=== PATIENT | female | born 1945 | race Caucasian/White ===

== ENCOUNTER 2020-08-07 08:20 | Emergency (ER) | payer MEDICARE, SELFPAY ==
[2020-08-07 08:42] VITALS: BP 168/122; PULSE 91; RESP 16; TEMP 36.6; O2SAT 97; BMI 35.6
--- NOTE | 2020-08-07 08:45 | ED_ITS ---
HPI - General Adult General Chief complaint: General Medical Stated complaint: rectal bleed Time Seen by Provider: 08/07/20 08:26 Source: patient and family Mode of arrival: ambulatory Limitations: no limitations History of Present Illness HPI narrative: 75-year-old female with a past medical history of dementia, AFib on Coumadin, CHF, hyperlipidemia, hypertension, gout, insulin-dependent diabetes here with dark stools. Per family the patient has had some intermittent brown diarrhea for the last week or 2 (alternating days -some days normal stool, other days has 1-2 episodes of diarrhea). Today when the woke up he noticed his was incontinent of stool in the bed. He noted that her stool appeared black and he became concerned and brought her into the emergency department. No additional episodes of dark stools. No bloody stools. No complaints of abdominal pain, vomiting or fevers or chills. The patient has a history of upper GI bleed and last had an endoscopy in 2015 when she was admitted for a GI bleed. She was seen by Dr. Blas and was thought to be secondary to portal hypertensive gastropathy. the patient is a limited historian due to her dementia. Per the p atient did receive 1 dose of Pepto-Bismol yesterday. Onset (ago): hour(s) Relieving factors: none Exacerbating factors: none Associated symptoms: denies other symptoms Treatments prior to arrival: none Related Data Previous Rx's Medication Instructions Recorded levofloxacin 250 mg PO DAILY 3 Days #3 tab 08/07/20 Allergies Allergy/AdvReac Type Severity Reaction Status Date / Time Penicillins Allergy Mild UNKNOWN Unverified 06/15/20 16:47 erythromycin base Allergy Unknown UNKNOWN Unverified 06/15/20 16:47 [ERYTHROMYCIN BASE] flecainide [FLECAINIDE] Allergy Unknown UNKNOWN Unverified 06/15/20 16:47 Review of Systems Review of Systems: Yes all other systems are reviewed and are negative Constitutional: Constitutional: Reports no additional constitutional complaints, Denies body ache(s), Denies chills, Denies fever(s), Denies headache(s) and Denies weakness Eyes: Eyes: Reports no additional eye complaints and Denies change in vision ENT: Reports system reviewed and no additional complaints, except as docu mented, Denies dizziness, Denies headache(s), Denies nasal congestion, Denies nasal discharge and Denies neck pain Cardiovascular: Cardiovascular: Reports no additional cardiovascular complaints, Denies chest pain, Denies leg edema and Denies dyspnea Respiratory: Respiratory: Reports no additional respiratory complaints, Denies cough and Denies dyspnea Gastrointestinal: Gastrointestinal: Reports no additional gastrointestinal complaints, Denies abdominal pain, Reports melena, Reports diarrhea, Denies nausea and Denies vomiting Genitourinary: Genitourinary: Reports no additional female genitourinary complaints and Denies urinary incontinence Musculoskeletal: Musculoskeletal: Reports no additional musculoskeletal compl aints, Denies back pain, Denies arthralgias, Denies joint swelling, Denies neck pain, Denies numbness and Denies tingling Integumentary/Breasts: Skin/Breast: Reports system reviewed and no additional complaints, except as docu and Denies rash Neurologic: Reports system reviewed and no additional complaints, except as documented, Denies Abnormal speech present, Reports confusion, Denies dizziness, Denies headache(s), Denies numbness, Denies tingling and Denies weakness Psychiatric: Psychiatric: Reports confusion [facility] Past Medical History Attestation statement: The following information was validated with the patient. Source: obtained from family and nursing notes reviewed Medical History (Updated 08/07/20 @ 14:48 by Heather Gould NP) Atrial fibrillation Dementia Diabetes GI bleed Gout High cholesterol Hypertension Social History Social History Alcohol intake: never Smoking Status: Never smoker Use of substances other than those prescribed or required for medical reasons: No Advance Directives: No Advance Directives Information Provided: No Physical Exam Vital Signs: Vital Signs: Last Vital Signs Temp 97.9 F 08/07/20 08:42 Pulse 71 08/07/20 14:39 Resp 16 08/07/20 14:39 BP 143/63 H 08/07/20 14:39 Pulse Ox 100 08/07/20 14:39 Body Mass Index 35.6 Const: General: cooperative, healthy appearing, comfortable, no acute distress and confusion Orientation/consciousness: oriented to person and confusion Limitations: no limitations HENMT: Head: Yes normal to inspection Ears: hearing grossly normal bilaterally General nose exam: Normal external nose present Face and sinus: Yes normal facial exam Mouth: Normal oral and palatal mucosa present Throat: Yes posterior oropharynx normal Eyes: General: appearance normal, both eyes and all related structures Pupils: Equal, round and reactive pupils present Neck: Neck: Yes normal visual inspection Chest: Chest palpation & inspection: normal inspection of the chest Resp: Effort & Inspection: normal respiratory effort Auscultation: clear to auscultation bilaterally Cardio: Rate: regular rate Rhythm: regular rhythm Peripheral pulses: Peripheral pulses 2+ throughout GI: Other: Dark liquid stool noted on rectal exam and around rectum. Heme negative Inspection: Yes normal to inspection Palpation (GI): Soft to palpation and nontender Auscultation: normal bowel sounds Rectal Exam - Female: visual inspection normal and normal sphincter tone Back/Spine/Pelvis: Thoracic/Lumbar Spine: thoracic and lumbar spine normal to inspection Skin: General skin exam: no rashes or lesions noted Neuro: General: oriented to person, no focal motor deficits, normal sensation to monofilament and confusion Cranial nerves: Yes Equal, round and reactive pupils present Cognition (Neuro): normal cognition Speech: No Abnormal speech present Gait exam (Neuro): Normal gait present Motor exam (neuro): 5/5 motor strength present throughout Extrem: General: Yes normal to inspection Course Course Course Narrative: 75-year-old female here with intermittent diarrhea for the last 1-2 weeks and now with 1 single episode of dark stools noted this morning. The patient has no other complaints. Her abdomen is soft and nontender. Her rectal exam shows dark stool. It is heme-negative in the ED. Will send study for occult blood. check labs including PT / INR. 1130-Nursing told me the patient was found on her knees in her room saying she fell getting out of bed. She denies hitting her head. She is confused secondary to dementia at baseline. Neuro exam intact. Will check CT head. 1350-Repeat occult Stool negative. Repeat BNP improved. Blood pressure on discharge improved. UA is consistent with UTI so will give short course of antibiotics. No systemic signs or symptoms of infection. The patient had no additional stools while she was here in the emergency department for 6 hours. Dark stool likely secondary to Pepto-Bismol. Discussed findings with the patient and the patient's family. Reviewed follow-up care. Reviewed worrisome signs and symptoms and when to return to the emergency department. Comfortable discharge home. Medical Decision Making MDM Narrative Medical decision making narrative: GI bleed, pepto use, viral syndrome, infectious diarrhea, ischemic colitis vs diverticulitis. Likely GI bleed with heme-negative stools, stable hgb. less likely infectious diarrhea with no continued episodes here. Less likely ischemic colitis with negative lactic acid and no abdominal pain. Less of the diverticulitis with no abdominal pain Medical Records Medical records reviewed: Yes I reviewed the patient's medical records. Lab Data Lab results reviewed: Yes I reviewed the patient's lab results. Result diagrams: 08/07/20 08:59 08/07/20 13:01 Labs: Lab Results 08/07/20 08/07/20 08/07/20 Range/Units 08:58 08:59 08:59 WBC 5.5 (4.8-10.8) X10*3/uL RBC 3.72 L (4.20-5.50) X10*6/uL Hgb 11.2 L (12.0-16.0) g/dl Hct 34.8 L (37-47) % MCV 93.5 (80-98) fL MCH 30.1 (27.0-33.0) pg MCHC 32.2 (31.0-35.0) g/dl RDW 13.6 (11.0-16.0) % Plt Count 153 L (160-400) X10*3/uL MPV 11.2 (9.4-12.3) fL Immature Gran % (Auto) 0.4 (0.0-0.4) % Neut % (Auto) 75.0 H (45-73) % Lymph % (Auto) 13.2 L (20-40) % [place]ee % (Auto) 9.2 (2-11) % Eos % (Auto) 1.8 (0-4) % Baso % (Auto) 0.4 (0-2) % Lymph # (Auto) 0.7 L (1.2-4.9) X10*3/uL [place] # (Auto) 0.5 (0.1-1.2) X10*3/uL Eos # (Auto) 0.1 (0.0-0.4) X10*3/uL Baso # (Auto) 0.0 (0.0-0.2) X10*3/uL Abs Immat Gran (auto) 0.02 (0.00-0.03) X10*3/uL Absolute Neuts (auto) 4.1 (2.0-8.3) X10*3/uL Absolute Nucleated RBC 0.000 (0.0-0.012) X10*3/uL Nucleated RBC % (auto) 0.0 (0.0-0.2) /100WBC PT (10.8-13.0) SEC INR (0.9-1.1) Sodium 139 (135-145) mmol/L Potassium 4.1 (3.3-5.1) mmol/l Chloride 106 (96-108) mmol/L Carbon Dioxide 26 (22-29) mmol/L Anion Gap 11 L (12-20) BUN 52 H (9-16) mg/dL Creatinine 0.81 (0.5-1.4) mg/dL Estim Creat Clear Calc 63.9 Estimated GFR > 60 Random Glucose 75 (60-115) mg/dL Lactic Acid (0.5-2.0) mmol/L Calcium 9.5 (8.4-10.2) mg/dL Magnesium (1.6-2.6) mg/dL Total Bilirubin (0.0-1.0) mg/dL Direct Bilirubin (0.0-0.5) mg/dL AST (5-31) U/L ALT (0-31) U/L Alkaline Phosphatase (39-117) U/L Total Protein (6.5-8.0) g/dL Albumin (3.5-5.0) g/dL Urine Color Urine Appearance Urine pH (5.0-8.0) Ur Specific [place] (1.005-1.025) Urine Protein (NEG-TRACE) MG/DL Urine Glucose (UA) (NEG) MG/DL Urine Ketones (NEG) MG/DL Urine Blood (NEG) Urine Nitrite (NEG) Ur Leukocyte Esterase (NEG) Urine RBC (0) /HPF Urine WBC (0-4) /HPF Ur Squamous Epith Cells /LPF Urine Bacteria /LPF Stool Occult Blood NEG (NEG) Blood Type Antibody Screen 08/07/20 08/07/20 08/07/20 Range/Units 08:59 08:59 08:59 WBC (4.8-10.8) X10*3/uL RBC (4.20-5.50) X10*6/uL Hgb (12.0-16.0) g/dl Hct (37-47) % MCV (80-98) fL MCH (27.0-33.0) pg MCHC (31.0-35.0) g/dl RDW (11.0-16.0) % Plt Count (160-400) X10*3/uL MPV (9.4-12.3) fL Immature Gran % (Auto) (0.0-0.4) % Neut % (Auto) (45-73) % Lymph % (Auto) (20-40) % [place] % (Auto) (2-11) % Eos % (Auto) (0-4) % Baso % (Auto) (0-2) % Lymph # (Auto) (1.2-4.9) X10*3/uL [place]ee # (Auto) (0.1-1.2) X10*3/uL Eos # (Auto) (0.0-0.4) X10*3/uL Baso # (Auto) (0.0-0.2) X10*3/uL Abs Immat Gran (auto) (0.00-0.03) X10*3/uL Absolute Neuts (auto) (2.0-8.3) X10*3/uL Absolute Nucleated RBC (0.0-0.012) X10*3/uL Nucleated RBC % (auto) (0.0-0.2) /100WBC PT 26.0 H (10.8-13.0) SEC INR 2.2 H (0.9-1.1) Sodium (135-145) mmol/L Potassium (3.3-5.1) mmol/l Chloride (96-108) mmol/L Carbon Dioxide (22-29) mmol/L Anion Gap (12-20) BUN (9-16) mg/dL Creatinine (0.5-1.4) mg/dL Estim Creat Clear Calc Estimated GFR Random Glucose (60-115) mg/dL Lactic Acid 1.4 (0.5-2.0) mmol/L Calcium (8.4-10.2) mg/dL Magnesium 2.4 (1.6-2.6) mg/dL Total Bilirubin 0.4 (0.0-1.0) mg/dL Direct Bilirubin < 0.2 (0.0-0.5) mg/dL AST 33 H (5-31) U/L ALT 28 (0-31) U/L Alkaline Phosphatase 78 (39-117) U/L Total Protein 6.2 L (6.5-8.0) g/dL Albumin 3.8 (3.5-5.0) g/dL Urine Color Urine Appearance Urine pH (5.0-8.0) Ur Specific [place] (1.005-1.025) Urine Protein (NEG-TRACE) MG/DL Urine Glucose (UA) (NEG) MG/DL Urine Ketones (NEG) MG/DL Urine Blood (NEG) Urine Nitrite (NEG) Ur Leukocyte Esterase (NEG) Urine RBC (0) /HPF Urine WBC (0-4) /HPF Ur Squamous Epith Cells /LPF Urine Bacteria /LPF Stool Occult Blood (NEG) Blood Type Antibody Screen 08/07/20 08/07/20 08/07/20 Range/Units 09:07 13:01 14:18 WBC (4.8-10.8) X10*3/uL RBC (4.20-5.50) X10*6/uL Hgb (12.0-16.0) g/dl Hct (37-47) % MCV (80-98) fL MCH (27.0-33.0) pg MCHC (31.0-35.0) g/dl RDW (11.0-16.0) % Plt Count (160-400) X10*3/uL MPV (9.4-12.3) fL Immature Gran % (Auto) (0.0-0.4) % Neut % (Auto) (45-73) % Lymph % (Auto) (20-40) % [place] % (Auto) (2-11) % Eos % (Auto) (0-4) % Baso % (Auto) (0-2) % Lymph # (Auto) (1.2-4.9) X10*3/uL [place] # (Auto) (0.1-1.2) X10*3/uL Eos # (Auto) (0.0-0.4) X10*3/uL Baso # (Auto) (0.0-0.2) X10*3/uL Abs Immat Gran (auto) (0.00-0.03) X10*3/uL Absolute Neuts (auto) (2.0-8.3) X10*3/uL Absolute Nucleated RBC (0.0-0.012) X10*3/uL Nucleated RBC % (auto) (0.0-0.2) /100WBC PT (10.8-13.0) SEC INR (0.9-1.1) Sodium 141 (135-145) mmol/L Potassium 4.3 (3.3-5.1) mmol/l Chloride 109 H (96-108) mmol/L Carbon Dioxide 24 (22-29) mmol/L Anion Gap 12 (12-20) BUN 46 H (9-16) mg/dL Creatinine 0.72 (0.5-1.4) mg/dL Estim Creat Clear Calc 71.9 Estimated GFR > 60 Random Glucose 82 (60-115) mg/dL Lactic Acid (0.5-2.0) mmol/L Calcium 9.0 (8.4-10.2) mg/dL Magnesium (1.6-2.6) mg/dL Total Bilirubin (0.0-1.0) mg/dL Direct Bilirubin (0.0-0.5) mg/dL AST (5-31) U/L ALT (0-31) U/L Alkaline Phosphatase (39-117) U/L Total Protein (6.5-8.0) g/dL Albumin (3.5-5.0) g/dL Urine Color YELLOW Urine Appearance CLEAR Urine pH 6.0 (5.0-8.0) Ur Specific [place] <= 1.005 (1.005-1.025) Urine Protein NEG (NEG-TRACE) MG/DL Urine Glucose (UA) NEG (NEG) MG/DL Urine Ketones NEG (NEG) MG/DL Urine Blood NEG (NEG) Urine Nitrite NEG (NEG) Ur Leukocyte Esterase 2+ H (NEG) Urine RBC 0 (0) /HPF Urine WBC 5-9 H (0-4) /HPF Ur Squamous Epith Cells 1+ /LPF Urine Bacteria TRACE /LPF Stool Occult Blood (NEG) Blood Type O Positive Antibody Screen NEGATIVE Imaging Data CT scan - head: Attestation: I personally reviewed and interpreted this imaging study as follows: Radiologist's impression: EXAMINATION: CT HEAD WITHOUT CONTRAST CLINICAL INFORMATION: Fall. Trauma. COMPARISON: None TECHNIQUE: Contiguous axial imaging was performed from the skull base to vertex without intravenous administration of contrast. This CT examination was performed using dose optimization techniques as appropriate, variously including the following: *Automated exposure control *Adjustment of mA and/or kV according to patient size (this includes techniques or standardized protocols for targeted exams where dose is matched to indication/reason for exam; i.e. extremities or head) *Use of iterative reconstruction technique DLP: 695 mGy-cm FINDINGS: There is no evidence of an extra-axial collection. There is no evidence of intra-axial or extra-axial hemorrhage. The ventricles gallstones and CSF spaces are prominent suggestive of generalized atrophy. 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 There is ex vacuo dilatation of the posterior horn of the left lateral ventricle. There is nonspecific periventricular white matter disease. No acute infarct, mass or mass effect is seen. Review at bone windows is unremarkable. CT/CT head/brain wo con IMPRESSION: No acute findings. 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 Atrophy and nonspecific periventricular white matter disease. ECG Data Attestation: I personally reviewed and interpreted this ECG as follows: Interpretation: AFib with occasional PVCs. Normal QRS, normal QTunchanged from previous Discharge Plan Discharge Clinical Impression: Acute UTI, Diarrhea Patient Disposition: Home, Self-Care Instructions: Acute Diarrhea (ED), Urinary Tract Infection in Older Adults (ED) Additional Instructions: There was no evidence of blood in her stools today. Her blood counts were nor mal. Sometimes Pepto-Bismol can cause stools to appear dark. Discontinue use of this. Monitor her stools closely over the next several days. She does have a urinary tract infection. Start antibiotics today. Increase fluids. Follow-up with her primary care doctor Prescriptions: New levofloxacin 250 mg tablet 250 mg PO DAILY 3 Days Qty: 3 RF: 0 Referrals: Jia Cohen MD [Primary Care Provider] - 2 days Interventions: ED Discharge Assessment Last Done: 08/07/20 15:11 Discharge Date/Time: 08/07/20 15:11
--- NOTE | 2020-08-07 09:07 | ECG_ITS ---
Test Reason : WEAKNESS Blood Pressure : / mmHG Vent. Rate : 073 BPM Atrial Rate : 065 BPM P-R Int : 000 ms QRS Dur : 088 ms QT Int : 388 ms P-R-T Axes : 000 013 003 degrees QTc Int : 427 ms Atrial fibrillation with premature ventricular or aberrantly conducted complexes Nonspecific ST abnormality Inferior leads Abnormal ECG When compared with ECG of 22-JAN-2016 17:58, Nonspecific ST abnormality Inferior leads is new Referred By: Heather Gould Electronically Signed By:SHOAIB TEJADA MD
[2020-08-07 09:10] LABS: OBS Int Ctl Valid YES; OBS1 NEG (NEG)
[2020-08-07 09:10] LABS: MANUAL DIFF FLAG NO
[2020-08-07 09:13] LABS: Basophils Percent Auto 0.4 % (0-2); Eosinophils Absolute Auto 0.1 X10*3/uL (0.0-0.4); Eosinophils Percent Auto 1.8 % (0-4); Hematocrit 34.8 % (37-47); Hemoglobin 11.2 g/dl (12.0-16.0); Imm Gran Abs Auto 0.02 X10*3/uL (0.00-0.03); Imm Gran Pct Auto 0.4 % (0.0-0.4); Lymphocytes Absolute Auto 0.7 X10*3/uL (1.2-4.9); Lymphocytes Percent Auto 13.2 % (20-40); Mean Corpuscular HGB Conc 32.2 g/dl (31.0-35.0); Mean Corpuscular Hemoglobin 30.1 pg (27.0-33.0); Mean Corpuscular Volume 93.5 fL (80-98); Mean Platelet Volume 11.2 fL (9.4-12.3); Monocytes Absolute Auto 0.5 X10*3/uL (0.1-1.2); Monocytes Percent Auto 9.2 % (2-11); Neutrophils Absolute Auto 4.1 X10*3/uL (2.0-8.3); Platelet Count 153 X10*3/uL (160-400); Red Blood Count 3.72 X10*6/uL (4.20-5.50); Red Cell Distribution Width 13.6 % (11.0-16.0); White Blood Count 5.5 X10*3/uL (4.8-10.8)
[2020-08-07 09:15] LABS: INTERNATIONAL NORM RATIO 2.2 (0.9-1.1)
[2020-08-07 09:36] LABS: Lactic Acid 1.4 mmol/L (0.5-2.0)
[2020-08-07 09:38] LABS: Alanine Aminotransferase 28 U/L (0-31); Albumin Level 3.8 g/dL (3.5-5.0); Alkaline Phosphatase 78 U/L (39-117); Aspartate Amino Transferase 33 U/L (5-31); Bilirubin Direct < 0.2 mg/dL (0.0-0.5); Bilirubin Total 0.4 mg/dL (0.0-1.0); Magnesium 2.4 mg/dL (1.6-2.6); Total Protein 6.2 g/dL (6.5-8.0)
[2020-08-07 09:39] LABS: Anion Gap 11 (12-20); Blood Urea Nitrogen 52 mg/dL (9-16); Calcium 9.5 mg/dL (8.4-10.2); Carbon Dioxide 26 mmol/L (22-29); Chloride 106 mmol/L (96-108); Creatinine Clr Calc Pharmacy 63.9; Estimated Glomerular Filt Rate > 60; Glucose Random 75 mg/dL (60-115); Potassium 4.1 mmol/l (3.3-5.1); Sodium 139 mmol/L (135-145)
[2020-08-07] MEDS: 0.9 % Sodium Chloride 1,000 ML 999 ML IV (09:52)
[2020-08-07 10:00] VITALS: RESP 16
--- NOTE | 2020-08-07 11:40 | CT_ITS ---
EXAMINATION: CT HEAD WITHOUT CONTRAST CLINICAL INFORMATION: Fall. Trauma. COMPARISON: None TECHNIQUE: Contiguous axial imaging was performed from the skull base to vertex without intravenous administration of contrast. This CT examination was performed using dose optimization techniques as appropriate, variously including the following: *Automated exposure control *Adjustment of mA and/or kV according to patient size (this includes techniques or standardized protocols for targeted exams where dose is matched to indication/reason for exam; i.e. extremities or head) *Use of iterative reconstruction technique DLP: 695 mGy-cm FINDINGS: There is no evidence of an extra-axial collection. There is no evidence of intra-axial or extra-axial hemorrhage. The ventricles gallstones and CSF spaces are prominent suggestive of generalized atrophy. 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 There is ex vacuo dilatation of the posterior horn of the left lateral ventricle. There is nonspecific periventricular white matter disease. No acute infarct, mass or mass effect is seen. Review at bone windows is unremarkable. CT/CT head/brain wo con IMPRESSION: No acute findings. 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 Atrophy and nonspecific periventricular white matter disease.
[2020-08-07 12:00] VITALS: PULSE 65; RESP 16; O2SAT 98
--- NOTE | 2020-08-07 12:14 | PC.NURSE ---
Pt out of room to ct scan.
[2020-08-07 13:44] LABS: Anion Gap 12 (12-20); Blood Urea Nitrogen 46 mg/dL (9-16); Carbon Dioxide 24 mmol/L (22-29); Chloride 109 mmol/L (96-108); Creatinine Clr Calc Pharmacy 71.9; Estimated Glomerular Filt Rate > 60; Glucose Random 82 mg/dL (60-115); Potassium 4.3 mmol/l (3.3-5.1); Sodium 141 mmol/L (135-145)
[2020-08-07 14:26] LABS: Appearance Urine CLEAR; Color Urine YELLOW; Glucose Urine UA NEG (NEG); Leukocyte Esterase Urine 2+ (NEG); Nitrite Urine NEG (NEG); Specific Gravity - Urine <= 1.005 (1.005-1.025); Urine Blood NEG (NEG); Urine Ketones NEG (NEG); Urine Protein NEG (NEG-TRACE)
[2020-08-07 14:33] LABS: Bacteria Urine TRACE /LPF; RBC Urine 0 /HPF (0); Squamous Epithelial Cell Urine 1+ /LPF
[2020-08-07 14:39] VITALS: BP 143/63; PULSE 71; RESP 16; O2SAT 100
== END 2020-08-07 15:11 | disposition home or self-care (01) ==
PROVIDERS: Nurse Practitioner Family; Emergency Provider Emergency Medicine; PCP Internal Medicine
DX: N39.0 Urinary tract infection, site not specified (principal); R19.7 Diarrhea, unspecified; G44.309 Post-traumatic headache, unspecified, not intractable; I48.91 Unspecified atrial fibrillation; E11.9 Type 2 diabetes mellitus without complications; Z79.01 Long term (current) use of anticoagulants; Z79.899 Other long term (current) drug therapy; Z79.4 Long term (current) use of insulin
CPT/HCPCS: 36415; 70450; 80048; 80076; 81001; 82272; 83605; 83735; 85025; 85610; 86850; 86900; 86901; 87086; 93005; 96360; 99284

== ENCOUNTER 2020-12-10 12:24 | Inpatient (IN) | payer MEDICARE, SELFPAY ==
--- NOTE | ~2020-12-10 | XR_ITS ---
EXAMINATION: LUMBAR SPINE. SACRUM AND/OR COCCYX. CLINICAL INFORMATION: Status post fall. COMPARISON: None TECHNIQUE: 3 views lumbar spine. Sacrum and/or coccyx 2 views. FINDINGS: LUMBAR SPINE: There is normal lumbar lordosis. The vertebral heights is normal. There is grade 1 anterolisthesis L4 over L5. There is loss of L3-L4, L4-L5, L5-S1 disc heights. No visible acute fracture, dislocation or lytic process seen. The paravertebral soft tissues are normal. The SI joints are normal and symmetrical. There are atherosclerotic changes of abdominal aorta. SACRUM/COCCYX: There is normal symmetry of the SI joints. There is a mild step-off seen along the anterior distal sacrum suspicious for a fracture. XR/XR lumbar spine 1V IMPRESSION: Grade 1 anterolisthesis L4 over L5. There are degenerative disc changes L3-L4 through L5-S1 disc levels. No acute fracture or dislocation in lumbar spine. Suspect fracture along the anterior distal sacral margin. If patient has pain in this region consider CT.
--- NOTE | ~2020-12-10 | CT_ITS ---
EXAMINATION: CT SACRUM. CLINICAL INFORMATION: Status post fall. COMPARISON: Sacral x-ray TECHNIQUE: Axial 3 mm thin and reformatted 2 mm thin sagittal and coronal images of cervical spine were obtained without contrast. DLP 509. FINDINGS: On sagittal reconstructed images there transverse S5 fracture with 3 midline anterior displacement of the anterior margin. There is minimal presacral fat stranding and post right sacral soft tissue edema. No additional areas of fracture seen. The SI joints are symmetrical and normal. There are degenerative disc changes with vacuum disc phenomena L4-L5 and L5-S1 disc level. CT/CT sacrum IMPRESSION: Minimally displaced S5 fracture with adjacent posterior sacral soft tissue swelling. Incidental finding of is significantly distended urinary bladder.
--- NOTE | ~2020-12-10 | XR_ITS ---
EXAMINATION: LUMBAR SPINE. SACRUM AND/OR COCCYX. CLINICAL INFORMATION: Status post fall. COMPARISON: None TECHNIQUE: 3 views lumbar spine. Sacrum and/or coccyx 2 views. FINDINGS: LUMBAR SPINE: There is normal lumbar lordosis. The vertebral heights is normal. There is grade 1 anterolisthesis L4 over L5. There is loss of L3-L4, L4-L5, L5-S1 disc heights. No visible acute fracture, dislocation or lytic process seen. The paravertebral soft tissues are normal. The SI joints are normal and symmetrical. There are atherosclerotic changes of abdominal aorta. SACRUM/COCCYX: There is normal symmetry of the SI joints. There is a mild step-off seen along the anterior distal sacrum suspicious for a fracture. XR/XR sacrum coccyx min 2V IMPRESSION: Grade 1 anterolisthesis L4 over L5. There are degenerative disc changes L3-L4 through L5-S1 disc levels. No acute fracture or dislocation in lumbar spine. Suspect fracture along the anterior distal sacral margin. If patient has pain in this region consider CT.
--- NOTE | ~2020-12-10 | CT_ITS ---
EXAMINATION: CT ABDOMEN AND PELVIS WITH CONTRAST CLINICAL INFORMATION: Severe abdominal tenderness. COMPARISON: Ultrasound of abdomen 01/24/2016 TECHNIQUE: Multidetector volumetric images were obtained from the superior aspect of the liver through the pubic symphysis following administration 85 mL of Omnipaque 350 intravenous contrast. Immediate postcontrast images were obtained through the abdomen and pelvis. 5 minute delayed images were obtained through the kidneys Sagittal and coronal reformatted images were obtained on the technologist's workstation. Oral contrast: No This CT examination was performed using dose optimization techniques as appropriate, variously including the following: *Automated exposure control *Adjustment of mA and/or kV according to patient size (this includes techniques or standardized protocols for targeted exams where dose is matched to indication/reason for exam; i.e. extremities or head) *Use of iterative reconstruction technique DLP: 1114 mGy-cm FINDINGS: LUNG BASES: The visualized lung bases are unremarkable. LIVER, GALLBLADDER, AND BILIARY TREE: The liver is normal in size, shape, and attenuation. No focal hepatic lesion or biliary ductal dilatation is present. The gallbladder is unremarkable with no evidence of radiopaque gallstones, gallbladder wall thickening, or obvious pericholecystic inflammatory changes. PANCREAS: There is atrophy of the pancreas. No inflammation. No pancreatic duct dilatation. SPLEEN: Unremarkable. ADRENAL GLANDS: Right adrenal gland is normal. There is a 2 cm nodule in the left adrenal gland. This has a density measurement of 31 Hounsfield units which is indeterminate on a postcontrast CT study. KIDNEYS AND URETERS: Kidneys of normal size and shape with normal enhancement of the cortex. Delayed images through the kidneys show normal enhancement of the calyces and renal pelvis with no filling defect or hydronephrosis. There are multiple bilateral renal cysts. Largest is a Multilobulated cyst upper pole right kidney measuring 3 cm. There is no renal or ureteral calculus. BLADDER: Cueva catheter within the bladder. The bladder is empty. GASTROINTESTINAL TRACT: There are numerous diverticula of the sigmoid colon. Scattered diverticula of the descending colon. There is no diverticulitis. There is no bowel wall thickening /edema. There is no bowel obstruction. There is a moderate volume of stool in the colon overall. There is a large collection of stool in the rectum and sigmoid. Colonic bowel loops the level the hips is distended to a diameter of 8.8 cm. There is no bowel wall thickening. No evidence of stercoral colitis. The appendix is nonvisualized . The small bowel loops are unremarkable. The stomach is normal. There is no hiatal hernia. ABDOMINAL WALL: Small fat-containing umbilical hernia. LYMPH NODES: There is no significant lymphadenopathy. VASCULAR: Vascular calcifications throughout the abdomen and pelvis. There is no aneurysm. PELVIC VISCERA: Status post hysterectomy OSSEOUS STRUCTURES: Multilevel degenerative spondylosis of the spine. CT/CT abdomen pelvis w con IMPRESSION: There is no acute abnormality the abdomen or pelvis. Large collection of stool at the rectum sigmoid without bowel obstruction or evidence of stercoral colitis. There is diverticulosis of colon without evidence of diverticulitis.
--- NOTE | ~2020-12-10 | CT_ITS ---
EXAMINATION: CT HEAD WITHOUT CONTRAST CT CERVICAL SPINE WITHOUT CONTRAST CLINICAL INFORMATION: Fall with head strike COMPARISON: CT head dated 08/07/2020 TECHNIQUE: Multidetector CT imaging of the head and cervical spine was performed without the use of intravenous contrast. Multiplanar reformats are reviewed. This CT examination was performed using dose optimization techniques as appropriate, variously including the following: *Automated exposure control *Adjustment of mA and/or kV according to patient size (this includes techniques or standardized protocols for targeted exams where dose is matched to indication/reason for exam; i.e. extremities or head) *Use of iterative reconstruction technique DLP: 1844 mGy-cm. FINDINGS: There is no evidence of acute intracranial hemorrhage or territorial infarction. No abnormal mass effect or midline shift is seen. Tsai to white matter differentiation is well preserved. No extra-axial fluid collections are identified. The ventricles are normal in size. Patchy subcortical and periventricular white matter low-attenuation changes reflective of chronic migraine hepatic lesions. 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 The osseous structures and soft tissues are normal. The mastoid air cells and visualized portions of the paranasal sinuses are well-aerated. Atlantooccipital alignment is maintained. The vertebral bodies and posterior elements align normally. No acute fracture or subluxation. Vertebral body heights are maintained. Small endplate osteophytes present throughout the cervical spine. Significant loss of disc space height present at C6-C7. Hypertrophic facet arthropathy present throughout the cervical spine, worse on the right C2-C4 on the left from C3 to C5. There is at least mild central canal stenosis at C3-C4 and C4-C5. [place] calcifications present at the bilateral carotid bifurcations. Paraspinal soft tissues unremarkable otherwise. CT/CT cervical spine wo con IMPRESSION: No acute intracranial pathology. 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 No cervical spine fracture or malalignment.
[2020-12-10 12:41] VITALS: BP 183/69; PULSE 79; RESP 18; TEMP 36.5; O2SAT 99; BMI 35.5
--- NOTE | 2020-12-10 12:50 | ECG_ITS ---
Test Reason : FALLS Blood Pressure : / mmHG Vent. Rate : 075 BPM Atrial Rate : 082 BPM P-R Int : 000 ms QRS Dur : 084 ms QT Int : 378 ms P-R-T Axes : 000 027 036 degrees QTc Int : 449 ms Atrial fibrillation Possible Anterior infarct (cited on or before 10-DEC-2020) Abnormal ECG When compared with ECG of 10-DEC-2020 13:20, Nonspecific T wave abnormality now evident in Inferior leads Referred By: Amelie Chong Electronically Signed By: DIPAK EDMOND MD [facility]
--- NOTE | 2020-12-10 12:51 | PC.NURSE ---
patient alert to self at times place, personnel monitor intact, vss, pt awaiting provider, will continue to monitor.
--- NOTE | 2020-12-10 13:08 | ED.GENADULT ---
HPI - General Adult General Chief complaint: Fall Stated complaint: 3 FALLS THIS WEEK,WEAKNESS,SLEEPY PER FAMILY Time Seen by Provider: 12/10/20 12:49 Source: patient, family and EMS Mode of arrival: EMS Limitations: no limitations History of Present Illness HPI narrative: 75 y/o female with history of atrial fibrillation on Coumadin, DM on insulin, dementia, CHF on diuretics, gout who presents to the ED from home via EMS with generalized weakness with three falls over the last 10 days. Patient is a poor historian, so family provides most of the history. He states she has had 3 unwitnessed falls when ambulating around the house. She has not been using her walker like she should be. The 1st fall occurred when walking to the TV and she fell on her side. 2nd fall was in the kitchen and she fell backwards on her buttocks and hit her head on the hard kitchen floor. She seems in a daze since then. He cannot recall the details of the 3rd fall. He states her legs just aren't working anymore. She has been complaining of low back pain and tailbone pain per . She denies headache, N/V, abdominal pain but is tender on palpation of her abdomen on arrival. Related Data Previous Rx's Medication Instructions Recorded levofloxacin 250 mg PO DAILY 3 Days #3 tab 08/07/20 Allergies Allergy/AdvReac Type Severity Reaction Status Date / Time Penicillins Allergy Mild UNKNOWN Verified 12/10/20 12:40 erythromycin base Allergy Unknown UNKNOWN Verified 12/10/20 12:40 [ERYTHROMYCIN BASE] flecainide [FLECAINIDE] Allergy Unknown UNKNOWN Verified 12/10/20 12:40 Review of Systems Review of Systems: Constitutional: No Fever, No Chills ENT/Mouth: No sore throat, No Rhinorrhea, No Swallowing Difficulty Cardiovascular: No Chest Pain, No SOB, No Orthopnea, + Edema Respiratory: No Cough, No Sputum, No Wheezing, No dyspnea Gastrointestinal: No Nausea, No Vomiting, No Diarrhea, No abdominal Pain Genitourinary: No Dysuria, No Urinary Frequency, No Hematuria Musculoskeletal: + joint pain, No Myalgias Skin: No Skin Lesions, No rash Neuro: No Weakness, No Numbness, No Dizziness, No Headache Psych: No Anxiety/Panic, No Depression Heme/Lymph: No Bruising, No Lymphadenopathy Endocrine: No Polyuria, No Polydipsia PMFSH Past Medical History Attestation statement: The following information was validated with the patient. Medical History Atrial fibrillation Dementia Diabetes GI bleed Gout High cholesterol Hypertension Social History Social History Alcohol intake: never Smoking Status: Former smoker Use of substances other than those prescribed or required for medical reasons: No Advance Directives: No Advance Directives Information Provided: No Physical Exam Vital Signs: Vital Signs: Last Vital Signs Temp 98.0 F 12/10/20 15:55 Pulse 64 12/10/20 15:55 Resp 13 12/10/20 15:55 BP 174/59 H 12/10/20 15:55 Pulse Ox 98 12/10/20 15:55 Body Mass Index 35.5 Appearance: Alert. Oriented X1. No acute distress. Eyes: Pupils equal, round and reactive to light. EOMI, no nystagmus ENT: Pharynx normal. Neck: Normal inspection. Neck supple. CVS: irregularly irregurlar, normal rate, normal S1/S2 Pulses normal. Respiratory: No respiratory distress. Breath sounds normal. Abdomen: Soft with significant suprapubic tenderness, extending up to the umbilicus. +rebound and guarding. +BS x4 Skin: Skin warm and dry. Normal skin color. Normal skin turgor. No rashes. Extremities: 3+ LE edema, pale, but warm and well perfused. Neuro: Oriented X 1. No motor deficit. No sensory deficit. Confused Course Course Course Narrative: 75 y/o female with multiple comorbidities including afib on Coumadin and dementia who is presenting with 3 unwitnessed falls at home in the last 1-2 weeks, at least 1 with head trauma. Patient offers no complaints at this time but patient's husbnad reports she has been c/o low back pain. Will get CT head/C-spine, XR lumbar spine and coccyx/sacrum as well as EKG and basic blood work. Exam consistent with bladder distention. She voided but is mill tender washing. Awaiting PVR. Anticipate admission if acute abnormality is found vs PT/CM placement for rehab. She is not safe at home. Patient and are agreeable with plan. Reevaluation(s) Reevaluation #1: Lab workup unremarkable, mild transaminitis noted. XR lumbar spine ok, sacrum/coccyx showed concern for fracture so CT ordered for further evaluation. CT head/c-spine show no acute intracranial pathology. Reevaluation #2: PVR >999 cc so Cueva catheter placed - 2.2L urine returned. UA is positive for infection. Allergy to PCN with unknown reaction, will treat with Levaquin. She feels much better after bladder decompression. Hold off on further abdominal imaging at this time. CT scan showing minimally displaced S5. Ilda LIU from [employer] texted for recs. Patient is comfortable at this time and denying pain. Contacted hospitalist Caterina Guerrier who will put patient on list for admission, unable to review chart at this time. Will sign out to Yasemin MALONE who will assume care. Medical Decision Making Lab Data Result diagrams: 12/10/20 13:29 12/10/20 13:29 Labs: Lab Results 12/10/20 12/10/20 12/10/20 Range/Units 13:15 13:29 13:29 WBC 7.3 (4.8-10.8) X10*3/uL RBC 4.12 L (4.20-5.50) X10*6/uL Hgb 12.2 (12.0-16.0) g/dl Hct 37.4 (37-47) % MCV 90.8 (80-98) fL MCH 29.6 (27.0-33.0) pg MCHC 32.6 (31.0-35.0) g/dl RDW 14.0 (11.0-16.0) % Plt Count 175 (160-400) X10*3/uL MPV 11.0 (9.4-12.3) fL Immature Gran % (Auto) 0.4 (0.0-0.4) % Neut % (Auto) 73.9 H (45-73) % Lymph % (Auto) 12.7 L (20-40) % [place] % (Auto) 10.9 (2-11) % Eos % (Auto) 1.8 (0-4) % Baso % (Auto) 0.3 (0-2) % Lymph # (Auto) 0.9 L (1.2-4.9) X10*3/uL [place] # (Auto) 0.8 (0.1-1.2) X10*3/uL Eos # (Auto) 0.1 (0.0-0.4) X10*3/uL Baso # (Auto) 0.0 (0.0-0.2) X10*3/uL Abs Immat Gran (auto) 0.03 (0.00-0.03) X10*3/uL Absolute Neuts (auto) 5.4 (2.0-8.3) X10*3/uL Absolute Nucleated RBC 0.000 (0.0-0.012) X10*3/uL Nucleated RBC % (auto) 0.0 (0.0-0.2) /100WBC PT 23.7 H (10.8-13.0) SEC INR 2.0 H (0.9-1.1) APTT 39.3 H (24.1-38.0) SEC Sodium (135-145) mmol/L Potassium (3.3-5.1) mmol/L Chloride (96-108) mmol/L Carbon Dioxide (22-29) mmol/L Anion Gap (12-20) BUN (9-16) mg/dL Creatinine (0.5-1.4) mg/dL Estim Creat Clear Calc Estimated GFR Random Glucose (60-115) mg/dL Lactic Acid 1.0 (0.5-2.0) mmol/L Calcium (8.4-10.2) mg/dL Magnesium (1.6-2.6) mg/dL Total Bilirubin (0.0-1.0) mg/dL Direct Bilirubin (0.0-0.5) mg/dL AST (5-31) U/L ALT (0-31) U/L Alkaline Phosphatase (39-117) U/L Troponin I High Sens (<3.5-17.0) ng/L B-Natriuretic Peptide (<100) pg/mL Total Protein (6.5-8.0) g/dL Albumin (3.5-5.0) g/dL Urine Color Urine Appearance Urine pH (5.0-8.0) Ur Specific [place] (1.005-1.025) Urine Protein (NEG-TRACE) MG/DL Urine Glucose (UA) (NEG) MG/DL Urine Ketones (NEG) MG/DL Urine Blood (NEG) Urine Nitrite (NEG) Ur Leukocyte Esterase (NEG) Urine RBC (0) /HPF Urine WBC (0-4) /HPF Urine WBC Clumps Ur Squamous Epith Cells /LPF Ur Renal Epithelial Cell /LPF Amorphous Sediment /LPF Urine Bacteria /LPF COVID-19 (MARIANNA) (Negative) COVID-19 Clin Com 12/10/20 12/10/20 12/10/20 Range/Units 13:29 13:29 13:33 WBC (4.8-10.8) X10*3/uL RBC (4.20-5.50) X10*6/uL Hgb (12.0-16.0) g/dl Hct (37-47) % MCV (80-98) fL MCH (27.0-33.0) pg MCHC (31.0-35.0) g/dl RDW (11.0-16.0) % Plt Count (160-400) X10*3/uL MPV (9.4-12.3) fL Immature Gran % (Auto) (0.0-0.4) % Neut % (Auto) (45-73) % Lymph % (Auto) (20-40) % [place] % (Auto) (2-11) % Eos % (Auto) (0-4) % Baso % (Auto) (0-2) % Lymph # (Auto) (1.2-4.9) X10*3/uL [place] # (Auto) (0.1-1.2) X10*3/uL Eos # (Auto) (0.0-0.4) X10*3/uL Baso # (Auto) (0.0-0.2) X10*3/uL Abs Immat Gran (auto) (0.00-0.03) X10*3/uL Absolute Neuts (auto) (2.0-8.3) X10*3/uL Absolute Nucleated RBC (0.0-0.012) X10*3/uL Nucleated RBC % (auto) (0.0-0.2) /100WBC PT (10.8-13.0) SEC INR (0.9-1.1) APTT (24.1-38.0) SEC Sodium 141 (135-145) mmol/L Potassium 4.0 (3.3-5.1) mmol/L Chloride 104 (96-108) mmol/L Carbon Dioxide 29 (22-29) mmol/L Anion Gap 12 (12-20) BUN 36 H (9-16) mg/dL Creatinine 0.71 (0.5-1.4) mg/dL Estim Creat Clear Calc 84.1 Estimated GFR > 60 Random Glucose 104 (60-115) mg/dL Lactic Acid (0.5-2.0) mmol/L Calcium 10.0 D (8.4-10.2) mg/dL Magnesium 2.3 (1.6-2.6) mg/dL Total Bilirubin 0.7 (0.0-1.0) mg/dL Direct Bilirubin 0.3 (0.0-0.5) mg/dL AST 40 H (5-31) U/L ALT 39 H (0-31) U/L Alkaline Phosphatase 92 (39-117) U/L Troponin I High Sens 14.0 (<3.5-17.0) ng/L B-Natriuretic Peptide 38 (<100) pg/mL Total Protein 6.5 (6.5-8.0) g/dL Albumin 4.1 (3.5-5.0) g/dL Urine Color Urine Appearance Urine pH (5.0-8.0) Ur Specific [place] (1.005-1.025) Urine Protein (NEG-TRACE) MG/DL Urine Glucose (UA) (NEG) MG/DL Urine Ketones (NEG) MG/DL Urine Blood (NEG) Urine Nitrite (NEG) Ur Leukocyte Esterase (NEG) Urine RBC (0) /HPF Urine WBC (0-4) /HPF Urine WBC Clumps Ur Squamous Epith Cells /LPF Ur Renal Epithelial Cell /LPF Amorphous Sediment /LPF Urine Bacteria /LPF COVID-19 (MARIANNA) Negative (Negative) COVID-19 Clin Com See Note 12/10/20 Range/Units 13:33 WBC (4.8-10.8) X10*3/uL RBC (4.20-5.50) X10*6/uL Hgb (12.0-16.0) g/dl Hct (37-47) % MCV (80-98) fL MCH (27.0-33.0) pg MCHC (31.0-35.0) g/dl RDW (11.0-16.0) % Plt Count (160-400) X10*3/uL MPV (9.4-12.3) fL Immature Gran % (Auto) (0.0-0.4) % Neut % (Auto) (45-73) % Lymph % (Auto) (20-40) % [place] % (Auto) (2-11) % Eos % (Auto) (0-4) % Baso % (Auto) (0-2) % Lymph # (Auto) (1.2-4.9) X10*3/uL [place] # (Auto) (0.1-1.2) X10*3/uL Eos # (Auto) (0.0-0.4) X10*3/uL Baso # (Auto) (0.0-0.2) X10*3/uL Abs Immat Gran (auto) (0.00-0.03) X10*3/uL Absolute Neuts (auto) (2.0-8.3) X10*3/uL Absolute Nucleated RBC (0.0-0.012) X10*3/uL Nucleated RBC % (auto) (0.0-0.2) /100WBC PT (10.8-13.0) SEC INR (0.9-1.1) APTT (24.1-38.0) SEC Sodium (135-145) mmol/L Potassium (3.3-5.1) mmol/L Chloride (96-108) mmol/L Carbon Dioxide (22-29) mmol/L Anion Gap (12-20) BUN (9-16) mg/dL Creatinine (0.5-1.4) mg/dL Estim Creat Clear Calc Estimated GFR Random Glucose (60-115) mg/dL Lactic Acid (0.5-2.0) mmol/L Calcium (8.4-10.2) mg/dL Magnesium (1.6-2.6) mg/dL Total Bilirubin (0.0-1.0) mg/dL Direct Bilirubin (0.0-0.5) mg/dL AST (5-31) U/L ALT (0-31) U/L Alkaline Phosphatase (39-117) U/L Troponin I High Sens (<3.5-17.0) ng/L B-Natriuretic Peptide (<100) pg/mL Total Protein (6.5-8.0) g/dL Albumin (3.5-5.0) g/dL Urine Color YELLOW Urine Appearance HAZY Urine pH 6.0 (5.0-8.0) Ur Specific [place] 1.015 (1.005-1.025) Urine Protein NEG (NEG-TRACE) MG/DL Urine Glucose (UA) NEG (NEG) MG/DL Urine Ketones NEG (NEG) MG/DL Urine Blood 3+ H (NEG) Urine Nitrite NEG (NEG) Ur Leukocyte Esterase 2+ H (NEG) Urine RBC 1-4 (0) /HPF Urine WBC 15-29 H (0-4) /HPF Urine WBC Clumps NOTED Ur Squamous Epith Cells 2+ /LPF Ur Renal Epithelial Cell TRACE /LPF Amorphous Sediment 1+ /LPF Urine Bacteria 1+ /LPF COVID-19 (MARIANNA) (Negative) COVID-19 Clin Com ECG Data Attestation: I personally reviewed and interpreted this ECG as follows: Interpretation: atrial fibrillation, HR 75 bpm, normal QTc, no ST segment elevations Discharge Plan Discharge Clinical Impression: Acute UTI, Fracture of sacrum, Fall, Weakness, Acute urinary retention Patient Disposition: Home, Self-Care Prescriptions: No Action levofloxacin 250 mg tablet 250 mg PO DAILY 3 Days Qty: 3 RF: 0
--- NOTE | 2020-12-10 13:35 | PC.NURSE ---
iv inserted, labs drawn, urine obtained, at bedside, will continue to monitor.
[2020-12-10 13:41] LABS: Basophils Percent Auto 0.3 % (0-2); Eosinophils Absolute Auto 0.1 X10*3/uL (0.0-0.4); Eosinophils Percent Auto 1.8 % (0-4); Hematocrit 37.4 % (37-47); Hemoglobin 12.2 g/dl (12.0-16.0); Imm Gran Abs Auto 0.03 X10*3/uL (0.00-0.03); Imm Gran Pct Auto 0.4 % (0.0-0.4); Lymphocytes Absolute Auto 0.9 X10*3/uL (1.2-4.9); Lymphocytes Percent Auto 12.7 % (20-40); MANUAL DIFF FLAG NO; Mean Corpuscular HGB Conc 32.6 g/dl (31.0-35.0); Mean Corpuscular Hemoglobin 29.6 pg (27.0-33.0); Mean Corpuscular Volume 90.8 fL (80-98); Monocytes Absolute Auto 0.8 X10*3/uL (0.1-1.2); Monocytes Percent Auto 10.9 % (2-11); Neutrophils Absolute Auto 5.4 X10*3/uL (2.0-8.3); Neutrophils Percent Auto 73.9 % (45-73); Platelet Count 175 X10*3/uL (160-400); Red Blood Count 4.12 X10*6/uL (4.20-5.50); White Blood Count 7.3 X10*3/uL (4.8-10.8)
[2020-12-10 13:41] LABS: Glucose Urine UA NEG (NEG); Leukocyte Esterase Urine 2+ (NEG); Nitrite Urine NEG (NEG); Specific Gravity - Urine 1.015 (1.005-1.025); UACC Culture Trigger YES; Urine Blood 3+ (NEG); Urine Ketones NEG (NEG); Urine Protein NEG (NEG-TRACE)
--- NOTE | 2020-12-10 13:51 | PC.NURSE ---
pt to radiology
[2020-12-10 13:52] LABS: Appearance Urine HAZY; Color Urine YELLOW
[2020-12-10 13:54] LABS: COVID-19 Test Negative (Negative)
[2020-12-10 13:58] LABS: Prothrombin Time 23.7 SEC (10.8-13.0)
[2020-12-10 14:01] LABS: Partial Thromboplastin Time 39.3 SEC (24.1-38.0)
[2020-12-10 14:08] LABS: Bacteria Urine 1+ /LPF; Renal Epithelial Cells Urine TRACE /LPF; Squamous Epithelial Cell Urine 2+ /LPF
[2020-12-10 14:08] LABS: Alanine Aminotransferase 39 U/L (0-31); Albumin Level 4.1 g/dL (3.5-5.0); Alkaline Phosphatase 92 U/L (39-117); Anion Gap 12 (12-20); Aspartate Amino Transferase 40 U/L (5-31); Bilirubin Direct 0.3 mg/dL (0.0-0.5); Bilirubin Total 0.7 mg/dL (0.0-1.0); Blood Urea Nitrogen 36 mg/dL (9-16); Carbon Dioxide 29 mmol/L (22-29); Chloride 104 mmol/L (96-108); Creatinine Clr Calc Pharmacy 84.1; Estimated Glomerular Filt Rate > 60; Glucose Random 104 mg/dL (60-115); Magnesium 2.3 mg/dL (1.6-2.6); Sodium 141 mmol/L (135-145); Total Protein 6.5 g/dL (6.5-8.0)
[2020-12-10 14:09] LABS: Amorphous Sediment Urine 1+ /LPF; WBC Clumps Urine NOTED
[2020-12-10 14:11] LABS: B Type Natriuretic Peptide 38 pg/mL (<100)
--- NOTE | 2020-12-10 15:54 | PC.NURSE ---
urinary cath inserted, pt drained 2200ml urine, patient states her abdomen feels better now.
[2020-12-10 15:55] VITALS: BP 174/59; PULSE 64; RESP 13; TEMP 36.7; O2SAT 98
--- NOTE | 2020-12-10 16:00 | PC.NURSE ---
pt medicated per order
--- NOTE | 2020-12-10 16:23 | PC.NURSE ---
pt to ct scan
[2020-12-10] MEDS: levoFLOXacin/D5W 250 MG/50 ML PIGGYBACK 50 MG IV (16:46)
[2020-12-10] MEDS: 0.9 % Sodium Chloride 1,000 ML 999 ML IVCONT (17:07)
--- NOTE | 2020-12-10 17:30 | PC.NURSE ---
enema not given, patient was incontinent of large amount of soft brown stool.
--- NOTE | 2020-12-10 19:06 | HP_ITS ---
DATE OF SERVICE: 12/10/2020 CHIEF COMPLAINT: Recurrent falls/difficulty in ambulation/generalized weakness. HISTORY OF PRESENT ILLNESS: This is a 75-year-old female patient with past medical history significant for atrial fibrillation on Coumadin, history of diabetes mellitus on insulin, history of dementia, congestive heart failure, was brought into [facility] accompanied by due to significant advanced dementia. The patient is unable to provide any history, therefore most of the history is obtained through patient's who informed that the patient had 3 falls over the course of the last 7 to 10 days. All falls were unwitnessed. The patient at baseline ambulates with the help of walker, but sometime she does not use walker. The first fall occurred when she was walking to watch TV and fell on her side. Second fall was in the kitchen and she fell backwards on her buttocks and hit her head on the hard kitchen floor. The third fall also happened 2 days ago when the patient was walking to the bathroom without a walker and for the last 2 days, the patient is mostly being in bed secondary to significant pain and generalized weakness. Otherwise, the patient is unable to communicate any other symptoms. PAST MEDICAL HISTORY: Significant for: 1. Atrial fibrillation, on Coumadin. 2. History of dementia. 3. History of diabetes mellitus, on insulin. 4. History of gout. 5. History of hypercholesterolemia. 6. History of hypertension. 7. History of GI bleed. SOCIAL HISTORY: The patient lives with . She is a former smoker. She does not drink alcohol. She ambulates with the help of a walker at home. FAMILY HISTORY: Benign with no history of premature coronary artery disease. REVIEW OF SYSTEMS: Unobtainable through the patient due to dementia, but as per , CONSTITUTIONAL: She has had no fever or chills. RESPIRATORY: No cough. No sputum production. No respiratory distress. GASTROINTESTINAL: No nausea. No vomiting or diarrhea. SKIN: No rashes. Unable to obtain further review of systems. MEDICATIONS: On admission: 1. Lasix 40 mg daily. 2. Klor-Con b.i.d. 3. Allopurinol 300 mg per day. 4. Metoprolol-XL 12.5 mg per day. 5. Benicar 40 mg daily. 6. Warfarin 2 mg 3 times per week alternating with 1 mg 4 times per week. 7. NovoLog sliding scale. 8. Aricept 10 mg at bedtime. 9. Basaglar 30 units at bedtime. PHYSICAL EXAMINATION: GENERAL: The patient is resting in bed, does not appear to be in acute distress, is pleasantly confused. VITAL SIGNS: Her vitals are blood pressure 174/59 with a pulse of 64, respiratory rate 13. She is afebrile, O2 saturation 98% on room air. HEENT: Pupils equal, round, and reactive to light and accommodation. NECK: Supple. No JVD. LUNGS: Clear to auscultation bilaterally. HEART: Irregularly irregular. ABDOMEN: Obese, soft, nontender. Bowel sounds are audible. EXTREMITIES: She has bilateral pitting edema, both lower extremities. Good peripheral pulses. NEURO: The patient is moving all 4 extremities, is not aware of place or person. Her speech is clear. LABORATORY DATA: WBC 7.3, hemoglobin 12.2, hematocrit of 37.4, platelet count of 175,000. Sodium 141, potassium 4, BUN 36, and creatinine of 0.71. AST of 40 with an ALT of 39. Troponin 14. BNP 38. IMAGING STUDIES: 1. Head CT showed no acute intracranial pathology, showed moderate chronic white matter small-vessel ischemic changes and old infarction. Cervical spine CT showed no cervical spine fracture. 2. CT sacrum showed minimally displaced S5 fracture. 3. CT abdomen and pelvis showed distended urinary bladder and large amount of stool in rectum without any diverticulitis or small bowel obstruction. EKG showed atrial fibrillation with nonspecific T-wave abnormality. ASSESSMENT AND PLAN: This is a very pleasant 75-year-old female patient with advanced dementia, atrial fibrillation on Coumadin, who was brought into [facility] due to recurrent fall. Subsequent to fall, the patient has difficulty in ambulation and back pain. 1. Unsteady gait with multiple falls. The patient will be admitted to medical floor. We will obtain a PT consultation. Case discussed with patient's and he wishes the patient to be transferred to rehab upon discharge from [facility]. 2. Urinary retention with urinary tract infection. The patient was noted to have significantly distended bladder on CT. Therefore, Cueva catheter was placed and 2.2 L urine was drained. UA is positive for infection. Therefore, the patient will be treated with IV antibiotic. She has received 1 dose of Levaquin. We will follow urine culture and sensitivity and adjust antibiotics. 3. Constipation. The patient also noted to have large amount of stool in rectum. The patient has received Fleet enema. We will check response to the treatment and add further medications depending on result of enema. 4. History of atrial fibrillation, on Coumadin. INR is in therapeutic range. We will continue warfarin. We will discuss with family regarding continued use of warfarin with recurrent falls. The patient's ventricular rate is stable. Continue metoprolol. 5. History of congestive heart failure. No prior echocardiograms are available. We will continue Lasix and Klor-Con. 6. History of dementia. The patient will be continued on Aricept. 7. History of diabetes mellitus, on insulin. The patient will be placed on diabetic diet and insulin sliding scale. The patient takes basaglar 30 units at bedtime that is non-formulary, we will change to Lantus. 8. Pain with S5 fracture, minimally displaced. We will place the patient on pain medication and obtain Ortho consultation. 9. Deep venous thrombosis prophylaxis. The patient is on Coumadin. Code status discussed with and he wishes the patient to be full code. MD TAMARA Reese/GREGG / [id number]
--- NOTE | 2020-12-10 19:26 | PC.NURSE ---
PT AWAKE AND BEING CLEANED UP FROM STOOL. PT ALERT AND CONFUSED AT THIS TIME. PT DENIES ANY COMPLAINTS. VS OBTAINED. WILL CONTINUE TO MONITOR PT.
--- NOTE | 2020-12-10 19:44 | PC.NURSE ---
PT CLEANED UP AT THIS TIME. PT REMAINS CONFUSED. PT FOLLOWING SIMPLE COMMANDS AND GETS FORGETFUL. PT AWAITING FOR ROOM ASSIGNMENT. WILL CONTINUE TO MONITOR PT.
[2020-12-10 20:54] LABS: Glucose, Whole Blood 106 mg/dL (60-115)
[2020-12-10] MEDS: Donepezil HCl 10 MG TABLET PO (20:55)
--- NOTE | 2020-12-10 20:56 | PC.NURSE ---
pt medicated per order, insulin held due to poc of 106
[2020-12-10 20:57] VITALS: BP 174/61; PULSE 95; RESP 18; TEMP 36.6; O2SAT 100
--- NOTE | 2020-12-10 21:14 | PC.NURSE ---
patient incontinent of large amount of stool, patient playing in stool before nursing staff was able to clean patient up. patient also attempting to pull out snell cath as well as iv access.
--- NOTE | 2020-12-10 21:26 | PC.NURSE ---
PT CLEANED UP AGAIN. PT IS CONSTANTLY PUTTING HER HAND IN STOOL AND SAYS OH IM SO SORRY . PT REDIRECTED. PT REPEATING THE SAME QUESTIONS. PT IN NAD. WILL CONTINUE TO MONITOR PT. AWAITING FOR ROOM ASSIGNMENT.
[2020-12-10] MEDS: diphenhydrAMINE HCL 50 MG/ML VIAL 25 MG IVPUSH (21:32)
--- NOTE | 2020-12-10 21:45 | PC.NURSE ---
PT MEDICATED FOR ANXIETY. WILL CONTINUE TO MONITOR PT.
[2020-12-10 22:00] VITALS: BP 142/72; PULSE 82; RESP 16
[2020-12-11] VITALS (8 sets, daily range): BP systolic 126–176; BP diastolic 52–79; PULSE 60–106; RESP 16–20; TEMP 36.4–37.1; O2SAT 87–99; BMI 35.5
--- NOTE | 2020-12-11 00:54 | PC.NURSE ---
floor unable to take report at this time.
--- NOTE | 2020-12-11 01:08 | PC.NURSE ---
report given to floor. pt to floor on stretcher at this time. pt left ed in nad.
[2020-12-11] MEDS: 0.9 % Sodium Chloride Flush 3 ML SYRINGE IVFLUSH ×3 (01:48→21:22)
[2020-12-11 06:49] LABS: MANUAL DIFF FLAG NO
[2020-12-11 07:00] LABS: Basophils Percent Auto 0.3 % (0-2); Eosinophils Absolute Auto 0.1 X10*3/uL (0.0-0.4); Eosinophils Percent Auto 1.1 % (0-4); Hematocrit 34.3 % (37-47); Imm Gran Abs Auto 0.02 X10*3/uL (0.00-0.03); Imm Gran Pct Auto 0.3 % (0.0-0.4); Lymphocytes Absolute Auto 0.7 X10*3/uL (1.2-4.9); Lymphocytes Percent Auto 9.5 % (20-40); Mean Corpuscular HGB Conc 32.1 g/dl (31.0-35.0); Mean Corpuscular Hemoglobin 29.3 pg (27.0-33.0); Mean Corpuscular Volume 91.2 fL (80-98); Monocytes Percent Auto 12.8 % (2-11); Neutrophils Absolute Auto 5.7 X10*3/uL (2.0-8.3); Platelet Count 160 X10*3/uL (160-400); Red Blood Count 3.76 X10*6/uL (4.20-5.50); Red Cell Distribution Width 13.8 % (11.0-16.0); White Blood Count 7.5 X10*3/uL (4.8-10.8)
[2020-12-11 07:10] LABS: INTERNATIONAL NORM RATIO 2.3 (0.9-1.1); Prothrombin Time 28.1 SEC (10.8-13.0)
[2020-12-11 07:37] LABS: Alanine Aminotransferase 37 U/L (0-31); Albumin Level 3.4 g/dL (3.5-5.0); Alkaline Phosphatase 73 U/L (39-117); Anion Gap 12 (12-20); Aspartate Amino Transferase 57 U/L (5-31); Bilirubin Direct 0.4 mg/dL (0.0-0.5); Bilirubin Total 1.2 mg/dL (0.0-1.0); Blood Urea Nitrogen 24 mg/dL (9-16); Calcium 8.9 mg/dL (8.4-10.2); Carbon Dioxide 26 mmol/L (22-29); Chloride 108 mmol/L (96-108); Creatinine Clr Calc Pharmacy 94.8; Estimated Glomerular Filt Rate > 60; Glucose Random 96 mg/dL (60-115); Potassium 3.7 mmol/L (3.3-5.1); Sodium 142 mmol/L (135-145); Total Protein 5.3 g/dL (6.5-8.0)
[2020-12-11 08:02] LABS: Glucose, Whole Blood 100 mg/dL (60-115)
--- NOTE | 2020-12-11 10:05 | MHC.CM.PN ---
PATIENT LIVES WITH HER SPOUSE. NEW HCP TO BE COMPLETED WHEN PATIENT IS AWAKE AND ABLE TO PARTICIPATE IN CONVERSATION. SHE RELIES ON A WHEELED WALKER IN THE HOME. SPOUSE PROVIDES MAJORITY OF CARE PCP IS SANDI VASQUEZ [phone]. [facility] UPDATE MADE. REFERRAL PLACED TO [facility] PER REQUEST. IMM 12/11 IN CHART
[2020-12-11 11:53] LABS: Glucose, Whole Blood 147 mg/dL (60-115)
[2020-12-11] MEDS: Valsartan 160 MG TABLET PO (11:59)
[2020-12-11] MEDS: allopurinoL 300 MG TABLET PO (11:59)
[2020-12-11] MEDS: Furosemide 40 MG TABLET PO (11:59)
[2020-12-11] MEDS: Metoprolol Succinate ER 25 MG TAB.ER.24H PO (11:59)
[2020-12-11] MEDS: Potassium Chloride Packet 20 MEQ PACKET 40 MEQ PO (12:00)
--- NOTE | 2020-12-11 13:10 | MHC.CM.PN ---
PATIENT WAS ABLE TO STATE HER NAME AND DATE OF . SHE IDENTIFIED HER SPOUSE, AND THAT SHE TRUSTS HIM TO BE HER HCP AGENT. SHE ALSO IDENTIFIES HER DAUGHTER, ELVIS ([phone]) A SECONDARY AGENT THAT SHE TRUSTS TO BE HCP AGENT. COMPLETED DOCUMENT IN PATIENT CHART AND UPLOADED TO [facility]. SPOUSE GIVEN ORIGINAL AND ONE COPY FOR DAUGHTER.
--- NOTE | 2020-12-11 13:19 | P.PNIM_ITS ---
Subjective Subjective Date of Service: 12/11/20 Interval History: Patient seen and examined at bedside Patient was confused Still having back pain Review of Systems Constitutional: No Fever, No Chills ENT/Mouth: No sore throat, No Rhinorrhea, No Swallowing Difficulty Cardiovascular: No Chest Pain, No SOB, No Orthopnea, + Edema Respiratory: No Cough, No Sputum, No Wheezing, No dyspnea Gastrointestinal: No Nausea, No Vomiting, No Diarrhea, No abdominal Pain Genitourinary: No Dysuria, No Urinary Frequency, No Hematuria Musculoskeletal: + joint pain, No Myalgias Skin: No Skin Lesions, No rash Neuro: No Weakness, No Numbness, No Dizziness, No Headache Psych: No Anxiety/Panic, No Depression Heme/Lymph: No Bruising, No Lymphadenopathy Endocrine: No Polyuria, No Polydipsia Physical Exam Vital Signs: Vital Signs: Last Vital Signs Temp 98.3 F 12/11/20 11:17 Pulse 84 12/11/20 11:17 Resp 18 12/11/20 11:17 BP 143/77 H 12/11/20 11:17 Pulse Ox 98 12/11/20 11:17 Body Mass Index 35.5 Const: Other: GENERAL: The patient is resting in bed, does not appear to be in acute distress VITAL SIGNS: Her vitals are blood pressure 174/59 with a pulse of 64, respiratory rate 13. She is afebrile, O2 saturation 98% on room air. HEENT: Pupils equal, round, and reactive to light and accommodation. NECK: Supple. No JVD. LUNGS: Clear to auscultation bilaterally. HEART: Irregularly irregular. ABDOMEN: Obese, soft, nontender. Bowel sounds are audible. EXTREMITIES: She has bilateral pitting edema, both lower extremities. Good peripheral pulses. NEURO: The patient is moving all 4 extremities, is not aware of place or person. Her speech is clear. Objective Data Current Medications Generic Name Dose Route Start Last Admin Trade Name Freq PRN Reason Stop Dose Admin Acetaminophen 650 mg 12/10/20 18:21 Acetaminophen 325 Mg Tablet PO Q6H PRN Pain, Mild (Pain Scale 1-3) Allopurinol 300 mg 12/11/20 09:00 12/11/20 11:59 Allopurinol 300 Mg Tablet PO 300 mg DAILY BRANT Administration Docusate Sodium 100 mg 12/10/20 18:21 Docusate Sodium 100 Mg Capsule PO DAILY PRN Constipation Donepezil HCl 10 mg 12/10/20 21:00 12/10/20 20:55 Donepezil Hcl 10 Mg Tablet PO 10 mg BEDTIME BRANT Administration Furosemide 40 mg 12/11/20 09:00 12/11/20 11:59 Furosemide 40 Mg Tablet PO 40 mg DAILY BRANT Administration Protocol Insulin Human Lispro 0 unit 12/10/20 21:00 12/11/20 12:00 Insulin Lispro 100 Unit/Ml 3 Ml Vial SUBCUT Not Given [facility] Protocol Metoprolol Succinate 25 mg 12/11/20 09:00 12/11/20 11:59 Metoprolol Succinate Er 25 Mg Tab.Er.24h PO 25 mg DAILY BRANT Administration Protocol Ondansetron HCl 4 mg 12/10/20 18:21 Ondansetron Hcl 4 Mg/2 Ml Vial IVPUSH Q8H PRN Nausea and Vomiting Pharmacy Consult 1 each 12/10/20 16:49 Consult Rx Perform Med Rec MISCELLANE ONCE PRN Consult order Potassium Chloride 40 meq 12/11/20 09:00 12/11/20 12:00 Potassium Chloride Packet 20 Meq Packet PO 40 meq DAILY BRANT Administration Sodium Chloride 3 ml 12/11/20 00:00 12/11/20 12:00 0.9 % Sodium Chloride Flush 3 Ml Syringe IVFLUSH 3 ml QSHIFT BRANT Administration Valsartan 160 mg 12/11/20 09:00 12/11/20 11:59 Valsartan 160 Mg Tablet PO 160 mg DAILY BRANT Administration Labs CBC & Chem 7: 12/11/20 06:15 12/11/20 06:15 Microbiology Microbiology Results: Microbiology 12/10/20 00:00 Urine clean catch - Clean Catch Midstream Urine Culture - Preliminary Culture in progress. Assessment and Plan (1) Acute UTI: Status: Acute (2) Fracture of sacrum: Status: Acute (3) Fall: Status: Acute (4) Weakness: Status: Acute Assessment and Plan: 75-year-old female patient with advanced dementia, atrial fibrillation on Coumadin, who was brought into [facility] due to recurrent fall. Subsequent to fall, the patient has difficulty in ambulation and back pain. Urinary retention with urinary tract infection Continue Levaquin Follow-up cultures Continue snell catheter S5 fracture, minimally displaced Continue pain management PT evaluation Unsteady gait with multiple falls Continue pain management Patient has S5 fracture PT evaluation Constipation continue bowel regimen History of atrial fibrillation, on Coumadin Continue metoprolol Continue Coumadin Monitor PT INR History of congestive heart failure. continue Lasix and Klor-Con. History of dementia continued on Aricept Diabetes mellitus Continue insulin Monitor blood glucose Deep venous thrombosis prophylaxis on Coumadin.
[2020-12-11 16:54] LABS: Glucose, Whole Blood 128 mg/dL (60-115)
[2020-12-11] MEDS: Donepezil HCl 10 MG TABLET PO (20:32)
[2020-12-11 20:58] LABS: Glucose, Whole Blood 122 mg/dL (60-115)
[2020-12-11] MEDS: OLANZapine 2.5 MG TABLET PO (21:21)
[2020-12-11] MEDS: Melatonin 3 MG TABLET 6 MG PO (23:33)
[2020-12-11] MEDS: QUEtiapine Fumarate 25 MG TABLET PO (23:33)
[2020-12-12 04:00] VITALS: BP 141/58; PULSE 77; RESP 18; TEMP 36.3; O2SAT 96
[2020-12-12 07:38] VITALS: BP 140/66; PULSE 90; RESP 18; TEMP 36.4; O2SAT 94
[2020-12-12 07:46] LABS: Glucose, Whole Blood 110 mg/dL (60-115)
[2020-12-12] MEDS: Valsartan 160 MG TABLET PO (10:17)
[2020-12-12] MEDS: Furosemide 40 MG TABLET PO (10:17)
[2020-12-12] MEDS: Metoprolol Succinate ER 25 MG TAB.ER.24H PO (10:17)
[2020-12-12] MEDS: allopurinoL 300 MG TABLET PO (10:17)
[2020-12-12] MEDS: Potassium Chloride Packet 20 MEQ PACKET 40 MEQ PO (10:17)
[2020-12-12] MEDS: 0.9 % Sodium Chloride Flush 3 ML SYRINGE IVFLUSH (10:24)
[2020-12-12 11:19] VITALS: BP 154/44; PULSE 76; RESP 18; TEMP 36.8; O2SAT 96
[2020-12-12 11:46] VITALS: BP 154/44; PULSE 76; O2SAT 96
[2020-12-12 12:09] LABS: Glucose, Whole Blood 178 mg/dL (60-115)
[2020-12-12] MEDS: Insulin Lispro 100 UNIT/ML 3 ML VIAL SUBCUT (12:42)
--- NOTE | 2020-12-12 14:54 | P.DS_ITS ---
DS: Providers Provider Date of Service: 12/14/20 Date of admission: 12/10/20 18:10 Primary care physician: Unknown Physician DS: Diagnosis Discharge Diagnosis (1) Acute UTI: Status: Acute (2) Fracture of sacrum: Status: Acute (3) Fall: Status: Acute (4) Weakness: Status: Acute DS: Medications Discharge Medications Home Medications: Home Medications Medication Instructions Recorded Confirmed allopurinol 1 tab PO DAILY 12/10/20 12/10/20 donepezil 1 tab PO BEDTIME 12/10/20 12/10/20 furosemide 40 mg PO DAILY 12/10/20 12/12/20 olmesartan 1 tab PO DAILY 12/10/20 12/10/20 potassium chloride [Klor-Con M20] 1 tab PO BID 12/10/20 12/10/20 warfarin 2 mg PO SUTUTH 12/10/20 12/12/20 Basaglar KwikPen U-100 Insulin 30 unit SUBCUT BEDTIME 12/12/20 12/12/20 insulin aspart U-100 [Novolog 6 - 10 unit SUBCUT TID 12/12/20 12/12/20 U-100 Insulin aspart] metoprolol succinate 12.5 mg PO DAILY 12/12/20 12/12/20 warfarin 1 mg PO MOWEFRSA 12/12/20 12/12/20 Previous Rx's Medication Instructions Recorded acetaminophen [Tylenol Extra 500 mg PO Q6H PRN #20 tab 12/12/20 Strength] levofloxacin 250 mg PO Q24H 5 Days #5 tab 12/12/20 DS: Summary Hospital Course Hospital Course: HPI 75-year-old female patient with past medical history significant for atrial fibrillation on Coumadin, history of diabetes mellitus on insulin, history of dementia, congestive heart failure, was brought into [facility] accompanied by due to significant advanced dementia. The patient is unable to provide any history, therefore most of the history is obtained through patient's who informed that the patient had 3 falls over the course of the last 7 to 10 days. All falls were unwitnessed. The patient at baseline ambulates with the help of walker, but sometime she does not use walker. The first fall occurred when she was walking to watch TV and fell on her side. Second fall was in the kitchen and she fell backwards on her buttocks and hit her head on the hard kitchen floor. The third fall also happened 2 days ago when the patient was walking to the bathroom without a walker and for the last 2 days, the patient is mostly being in bed secondary to significant pain and generalized weakness. Otherwise, the patient is unable to communicate any other symptoms. Hospital course 75-year-old female presented with recurrent fall found to have UTI with urinary retention, constipation and S5 minimally displaced fractures, For fall and fracture patient was started on supportive management, continued on Tylenol for pain, patient was evaluated by Physical therapy recommended short- term rehab For UTI patient was started on Levaquin, urine culture grew multiple organism switched to p.o. Levaquin on discharge, patient was also found to have urinary r etention, Snell catheter was placed , patient should continue snell catheter on discharge with voiding trial in 2-3 days For constipation patient was placed on bowel regimen patient had a bowel move ment Patient was stable evaluated by Physical therapy recommended short-term rehab patient was discharged to short-term rehab Time Spent with Patient Time attestation: Total time spent providing and/or coordinating discharge services: Discharge coordination time: Greater than 30 minutes Physical Exam Vital Signs: Vital Signs: Last Vital Signs Temp 98.3 F 12/12/20 11:19 Pulse 76 12/12/20 11:46 Resp 18 12/12/20 11:19 BP 154/44 H 12/12/20 11:46 Pulse Ox 96 12/12/20 11:46 Body Mass Index 35.5 DS: Data Data Completed and Pending Labs on day of discharge: Laboratory Results - last 24 hr 12/11/20 12/11/20 12/12/20 16:34 20:51 07:37 POC Glucose 128 H 122 H 110 12/12/20 11:18 POC Glucose 178 H Preliminary micro results at discharge 12/10/20 13:29 Blood Culture - Preliminary Blood - Venous No growth after 24 hours. 12/10/20 13:29 Blood Culture - Preliminary Blood - Venous No growth after 24 hours. Discharge Plan Discharge Anticipated Discharge Date/Time: 12/12/20 11:06 Patient Disposition: [facility] Referrals: [facility] [Outside] Physician,Unknown [Primary Care Provider] - Discharge Medications: New acetaminophen [Tylenol Extra Strength] 500 mg tablet 500 mg PO Q6H PRN (Reason: pain) Qty: 20 RF: 0 levofloxacin 250 mg tablet 250 mg PO Q24H 5 Days Qty: 5 RF: 0 polyethylene glycol 3350 [Miralax] 17 gram/dose powder 17 g PO DAILY Qty: 850 RF: 0 Continued donepezil 10 mg tablet 1 tab PO BEDTIME RF: 0 potassium chloride [Klor-Con M20] 20 mEq tablet,ER particles/crystals 1 tab PO BID RF: 0 furosemide 80 mg tablet 40 mg PO DAILY RF: 0 allopurinol 300 mg tablet 1 tab PO DAILY RF: 0 warfarin 2 mg tablet 2 mg PO SUTUTH RF: 0 olmesartan 40 mg tablet 1 tab PO DAILY RF: 0 insulin aspart U-100 [Novolog U-100 Insulin aspart] 100 unit/mL solution 6 - 10 unit subcut TID RF: 0 Basaglar KwikPen U-100 Insulin 100 unit/mL (3 mL) insulin pen 30 unit subcut BEDTIME RF: 0 metoprolol succinate 25 mg tablet extended release 24 hr 12.5 mg PO DAILY RF: 0 warfarin 1 mg Tablet 1 mg PO RF: 0 Discharge Orders: Discharge Order (Routine); Ordered 12/12/20 Ordered By: Raymundo Camp Diet: advance to usual diet Activity on Discharge: As tolerated Stand Alone Forms: Patient Portal Discharge page Care Plan Goals: treat pain Health Concerns: fall sacral fracture Plan of Treatment: STR Discharge Date/Time: 12/12/20 14:58
== END 2020-12-12 14:58 | disposition skilled nursing facility (03) | DRG 690 ==
LOC: HO.ED 18:16 → HO.EDOVER 18:27 → HO.S3 12-11 00:02
PROVIDERS: Physician Assistant; Physician Assistant Medical; Admitting Provider Hospitalist; Emergency Provider Emergency Medicine; PCP Internal Medicine; Visit Provider Internal Medicine
DX: N39.0 Urinary tract infection, site not specified (principal); S32.10XA Unspecified fracture of sacrum, initial encounter for closed fracture; W18.30XA Fall on same level, unspecified, initial encounter; Y93.9 Activity, unspecified; Y92.000 Kitchen of unspecified non-institutional (private) residence as the place of occurrence of the external cause; Y99.9 Unspecified external cause status; M10.9 Gout, unspecified; I48.91 Unspecified atrial fibrillation; F03.90 Unspecified dementia, unspecified severity, without behavioral disturbance, psychotic disturbance, mood disturbance, and anxiety; I11.0 Hypertensive heart disease with heart failure; I50.9 Heart failure, unspecified; R29.6 Repeated falls; K59.00 Constipation, unspecified; R33.9 Retention of urine, unspecified; Z91.81 History of falling; Z20.822 Contact with and (suspected) exposure to COVID-19; Z88.0 Allergy status to penicillin; Z79.4 Long term (current) use of insulin; Z79.01 Long term (current) use of anticoagulants; Z79.899 Other long term (current) drug therapy
CPT/HCPCS: 36415; 70450; 72020; 72125; 72192; 72220; 74177; 80048; 80076; 81001; 81003; 82947; 83605; 83735; 83880; 84484; 85025; 85610; 85730; 87040; 87086; 87635; 93005; 96365; 97162; 99285; J1200; J1956; Q9967

== ENCOUNTER 2022-05-29 00:44 | Inpatient (IN) | payer MEDICARE, SELFPAY ==
[2022-05-29] VITALS (8 sets, daily range): BP systolic 132–198; BP diastolic 54–82; PULSE 60–93; RESP 16–20; TEMP 36.6–37.3; O2SAT 92–97; BMI 32.3
--- NOTE | ~2022-05-29 | XR_ITS ---
EXAMINATION: XR CHEST CLINICAL INFORMATION: Confusion. Change in mental status. COMPARISON: None TECHNIQUE: Frontal view of the chest was obtained. FINDINGS: Bilateral streaky and patchy lower lung opacities. Small bilateral pleural effusions suspected. No pneumothorax. Cardiac silhouette within normal limits allowing for limitations in technique. No acute osseous abnormalities. XR/XR chest 1V IMPRESSION: Bilateral streaky and patchy lower lung opacities could multifocal pneumonia. Small bilateral pleural effusions suspected.
--- NOTE | 2022-05-29 01:58 | ECG_ITS ---
Test Reason : ALTERED MENTAL STATUS Blood Pressure : / mmHG Vent. Rate : 056 BPM Atrial Rate : 000 BPM P-R Int : 000 ms QRS Dur : 078 ms QT Int : 442 ms P-R-T Axes : 000 024 030 degrees QTc Int : 426 ms Atrial fibrillation with slow ventricular response Abnormal ECG When compared with ECG of 10-DEC-2020 13:22, Heart rate has decreased Referred By: Carlos Bran Electronically Signed By:KAUR ARELLANO
--- NOTE | 2022-05-29 02:01 | ED_ITS ---
HPI - Altered Mental Status General Chief Complaint: Altered Mental Status Stated Complaint: AMS FROM SNF, HX DEMENTIA Time Seen by Provider: 05/29/22 01:53 Source: EMS and RN notes reviewed Mode of arrival: EMS Limitations: altered mental status History of Present Illness HPI narrative: 77-year-old female who was sent in from her correction facility for altered mental status. The following information was written on the transfer note: ?Patient with baseline dementia, oriented times self at baseline. Patient with increased confusion unable to follow commands unable to form sentences, appears to be hallucinating. No urine output 3-11 shift, no bladder scanner in building. Diabetic, blood sugar 176. Vital signs 142/75, temperature 97.8 degrees, pulse 77, respiratory rate 18, O2 saturation 92% on room air ?. Patient's medication list was reviewed: Allopurinol, metoprolol, Eliquis, Depakote, lisinopril, Lexapro, basaglar insuliln Patient is a DNR, DNI Related Data Home Medications Medication Instructions Recorded Confirmed allopurinol 300 mg tablet 1 tab PO DAILY 12/10/20 12/10/20 donepezil 10 mg tablet 1 tab PO BEDTIME 12/10/20 12/10/20 furosemide 80 mg tablet 40 mg PO DAILY 12/10/20 12/12/20 olmesartan 40 mg tablet 1 tab PO DAILY 12/10/20 12/10/20 potassium chloride 20 mEq 1 tab PO BID 12/10/20 12/10/20 tablet,extended release(part/cryst) (Klor-Con M) warfarin 2 mg tablet 2 mg PO SUTUTH 12/10/20 12/12/20 insulin aspart U-100 100 unit/mL 6 - 10 unit subcut TID 12/12/20 12/12/20 subcutaneous solution (Novolog U-100 Insulin aspart) insulin glargine 100 unit/mL (3 30 unit subcut BEDTIME 12/12/20 12/12/20 mL) subcutaneous pen (Basaglar KwikPen U-100 Insulin) metoprolol succinate 25 mg 12.5 mg PO DAILY 12/12/20 12/12/20 tablet,extended release 24 hr warfarin 1 mg tablet 1 mg PO MOWEFRSA 12/12/20 12/12/20 Previous Rx's Medication Instructions Recorded acetaminophen 500 mg tablet 500 mg PO Q6H PRN pain #20 tabs 03/16/21 (Tylenol Extra Strength) levofloxacin 250 mg tablet 250 mg PO Q24H 5 days #5 tabs 12/12/20 polyethylene glycol 3350 17 17 g PO DAILY #850 grams 12/12/20 gram/dose oral powder (Miralax) Allergies Allergy/AdvReac Type Severity Reaction Status Date / Time Penicillins Allergy Mild UNKNOWN Verified 05/29/22 00:54 erythromycin base Allergy Unknown UNKNOWN Verified 05/29/22 00:54 [ERYTHROMYCIN BASE] flecainide [FLECAINIDE] Allergy Unknown UNKNOWN Verified 05/29/22 00:54 Review of Systems Review of Systems: Yes all other systems are reviewed and are negative [facility] Past Medical History [facility] Narrative: Past medical history: Diabetes mellitus, essential hypertension, chronic anemia, dementia, chronic atrial fibrillation, gout, adjustment disorder. Social history: Patient is resident of correction facility, she is a DNR, DNI. Medical History Atrial fibrillation Dementia Diabetes GI bleed Gout High cholesterol Hypertension Social History Social History Household Members: Spouse Housing: House Do you presently have visiting nurse or other home services: No Alcohol intake: never Second Hand Smoke Exposure: No Advance Directives: No Advance Directives Information Provided: No service: No Current occupational status: retired Physical Exam ED Vital Signs: Vital Signs - 24 hr 05/29/22 01:09 05/29/22 04:01 Temperature 99.2 F Pulse Rate 60 62 Respiratory Rate 20 18 Blood Pressure 146/54 H 169/57 H Pulse Oximetry 95 96 Oxygen Delivery Method Room Air Room Air BMI result Body Mass Index 32.3 Const Other: Elderly female patient, lying in bed, she is talking to herself, she is not answering questions, she was unable to tell me her name, she is picking at the blanket and may be hallucinating. HENMT Head: Yes normal to inspection, Yes normocephalic and Yes atraumatic Ears: external ears normal General nose exam: Normal external nose present Face and sinus: Yes normal facial exam Mouth: other (Very dry mucous membranes) Throat: Yes posterior oropharynx normal Eyes General: appearance normal, both eyes and all related structures Neck Neck: Yes normal visual inspection, Yes no lymphadenopathy, Yes trachea midline and Yes supple Chest Chest palpation & inspection: normal inspection of the chest and normal palpation of entire chest wall Resp Effort & Inspection: normal respiratory effort and able to speak in complete sentences Auscultation: clear to auscultation bilaterally Cardio Rate: regular rate Rhythm: abnormal rhythm irregularly irregular Heart sounds: S1 normal heart sound present, S2 normal heart sound present and no murmurs GI Inspection: Yes normal to inspection Palpation (GI): Soft to palpation, nontender and no guarding Auscultation: normal bowel sounds General: Yes no CVA tenderness Back/Spine/Pelvis Back: no CVA tenderness Skin General skin exam: no rashes or lesions noted Neuro Other: Patient is not oriented to person or place, she is not answering questions, she is moving her upper extremities and picking at the blanket, she does move her lower extremities symmetrically Extrem Other: No erythema or significant edema General: Yes normal to inspection Course Course Course Narrative: 77-year-old female with a history of dementia who was sent to the emergency department for evaluation of altered mental status, no urine output over the 3- 11 nursing shift, appear to be hallucinating at the correction facility. ED nursing note reports that the patient have a low sodium Vital signs were unremarkable. Patient was not oriented to person and place, she is talking to herself, she is picking at the blanket and I do believe she is hallucinating. Her exam did reveal very dry mucous membranes, otherwise her exam was unremarkable. Patient did have a bladder scan and she had 657 cc of urine in her bladder, Cueva catheter was placed and approximately 700 cc of urine was drained into the Cueva bag. I ordered a laboratory evaluation to include CBC, CMP, lipase, troponin, blood cultures x2 and urinalysis. I will obtain an EKG and chest x-ray. Given her urinary retention, she may have a urine infection therefore she was ordered to get ceftriaxone 1 g IV. Patient was ordered to get normal saline at 125 cc an hour. 0322: Laboratory evaluation: Pancytopenia with low WBC 4700, H&H of 10 and 31 and platelet count of a [id number]. Elevated CO2 of 30. High sensitive troponin I detectable at 10.7 but not elevated. Lipase normal. Lactate normal. COVID-19 negative. Urinalysis small amount of blood, 3+ leukocyte esterase, negative nitrates. Urine microscopic revealed greater than 50 wbc's, 4+ bacteria this was a Cueva catheter specimen. Radiology evaluation: Chest x-ray one view radiology interpretation: IMPRESSION: Bilateral streaky and patchy lower lung opacities could multifocal pneumonia. Small bilateral pleural effusions suspected. Dictated By:Dar Mayers MD Patient's presentation is most likely consistent with the urinary tract infection and urinary retention. The patient was treated with ceftriaxone 1 g IV. I will add doxycycline 100 mg IV for possible atypical pneumonia. I will discuss the patient's presentation with the covering hospitalist. 0355: I did discuss the patient's presentation over tiger text with the covering hospitalist, Dr. Douglass and the patient will be admitted for further management. MDM - Altered Mental Status Medical Records Attestation: I reviewed the patient's medical records. Lab Data Attestation: I reviewed the patient's lab results. Result diagrams: 05/29/22 02:30 05/29/22 02:30 Labs: Lab Results 05/29/22 05/29/22 05/29/22 Range/Units 02:30 02:30 02:30 WBC 4.7 L (4.8-10.8) X10*3/uL RBC 3.41 L (4.20-5.50) X10*6/uL Hgb 10.1 L (12.0-16.0) g/dl Hct 31.3 L (37.0-47.0) % MCV 91.8 (80.0-98.0) fL MCH 29.6 (27.0-33.0) pg MCHC 32.3 (31.0-35.0) g/dl RDW 13.0 (11.0-16.0) % Plt Count 148 L (160-400) X10*3/uL MPV 10.2 (9.4-12.3) fL Immature Gran % (Auto) 0.4 (0.0-0.4) % Neut % (Auto) 58.5 (45-73) % Lymph % (Auto) 21.0 (20-40) % [place] % (Auto) 14.2 H (2-11) % Eos % (Auto) 5.5 H (0-4) % Baso % (Auto) 0.4 (0-2) % Lymph # (Auto) 1.0 L (1.2-4.9) X10*3/uL [place] # (Auto) 0.7 (0.1-1.2) X10*3/uL Eos # (Auto) 0.3 (0.0-0.4) X10*3/uL Baso # (Auto) 0.0 (0.0-0.2) X10*3/uL Abs Immat Gran (auto) 0.02 (0.00-0.03) X10*3/uL Absolute Neuts (auto) 2.8 (2.0-8.3) x10*3/uL Absolute Nucleated RBC 0.000 (0.0-0.012) X10*3/uL Nucleated RBC % (auto) 0.0 (0.0-0.2) /100WBC PT 16.3 H (10.0-13.1) SEC INR 1.4 H (0.9-1.1) APTT 35.2 (26.0-36.4) SEC Sodium 141 (135-145) mmol/L Potassium 4.6 D (3.3-5.1) mmol/L Chloride 102 (96-108) mmol/L Carbon Dioxide 30 H (22-29) mmol/L Anion Gap 14 (12-20) BUN 15 (9-16) mg/dL Creatinine 0.55 (0.5-1.4) mg/dL Estim Creat Clear Calc 107.3 Estimated GFR > 60 Random Glucose 110 (60-115) mg/dL Lactic Acid (0.5-2.0) mmol/L Calcium 9.1 (8.4-10.2) mg/dL Total Bilirubin 0.2 (0.0-1.0) mg/dL AST 28 D (5-31) U/L ALT 14 (0-31) U/L Alkaline Phosphatase 72 (39-117) U/L Troponin I High Sens (<3.5-17.0) ng/L Total Protein 5.6 L (6.5-8.0) g/dL Albumin 3.2 L (3.5-5.0) g/dL Lipase < 4 L (8-78) U/L Urine Color Urine Appearance Urine pH (5.0-9.0) Ur Specific [place] (1.005-1.025) Urine Protein (Neg-Trace) mg/dL Urine Glucose (UA) (Negative) mg/dL Urine Ketones (Negative) mg/dL Urine Blood (Negative) Urine Nitrite (Negative) Ur Leukocyte Esterase (Negative) Urine RBC (0-2) /HPF Urine WBC (0-5) /HPF Ur Squamous Epith Cells (0-2) /HPF Urine Bacteria (None Seen) Hyaline Casts (0-2) /LPF COVID-19 (MARIANNA) (Negative) COVID-19 Clin Com 05/29/22 05/29/22 05/29/22 Range/Units 02:30 02:30 02:32 WBC (4.8-10.8) X10*3/uL RBC (4.20-5.50) X10*6/uL Hgb (12.0-16.0) g/dl Hct (37.0-47.0) % MCV (80.0-98.0) fL MCH (27.0-33.0) pg MCHC (31.0-35.0) g/dl RDW (11.0-16.0) % Plt Count (160-400) X10*3/uL MPV (9.4-12.3) fL Immature Gran % (Auto) (0.0-0.4) % Neut % (Auto) (45-73) % Lymph % (Auto) (20-40) % [place] % (Auto) (2-11) % Eos % (Auto) (0-4) % Baso % (Auto) (0-2) % Lymph # (Auto) (1.2-4.9) X10*3/uL [place] # (Auto) (0.1-1.2) X10*3/uL Eos # (Auto) (0.0-0.4) X10*3/uL Baso # (Auto) (0.0-0.2) X10*3/uL Abs Immat Gran (auto) (0.00-0.03) X10*3/uL Absolute Neuts (auto) (2.0-8.3) x10*3/uL Absolute Nucleated RBC (0.0-0.012) X10*3/uL Nucleated RBC % (auto) (0.0-0.2) /100WBC PT (10.0-13.1) SEC INR (0.9-1.1) APTT (26.0-36.4) SEC Sodium (135-145) mmol/L Potassium (3.3-5.1) mmol/L Chloride (96-108) mmol/L Carbon Dioxide (22-29) mmol/L Anion Gap (12-20) BUN (9-16) mg/dL Creatinine (0.5-1.4) mg/dL Estim Creat Clear Calc Estimated GFR Random Glucose (60-115) mg/dL Lactic Acid 0.7 (0.5-2.0) mmol/L Calcium (8.4-10.2) mg/dL Total Bilirubin (0.0-1.0) mg/dL AST (5-31) U/L ALT (0-31) U/L Alkaline Phosphatase (39-117) U/L Troponin I High Sens 10.7 (<3.5-17.0) ng/L Total Protein (6.5-8.0) g/dL Albumin (3.5-5.0) g/dL Lipase (8-78) U/L Urine Color Urine Appearance Urine pH (5.0-9.0) Ur Specific [place] (1.005-1.025) Urine Protein (Neg-Trace) mg/dL Urine Glucose (UA) (Negative) mg/dL Urine Ketones (Negative) mg/dL Urine Blood (Negative) Urine Nitrite (Negative) Ur Leukocyte Esterase (Negative) Urine RBC (0-2) /HPF Urine WBC (0-5) /HPF Ur Squamous Epith Cells (0-2) /HPF Urine Bacteria (None Seen) Hyaline Casts (0-2) /LPF COVID-19 (MARIANNA) Negative (Negative) COVID-19 Clin Com See Note 05/29/22 Range/Units 02:32 WBC (4.8-10.8) X10*3/uL RBC (4.20-5.50) X10*6/uL Hgb (12.0-16.0) g/dl Hct (37.0-47.0) % MCV (80.0-98.0) fL MCH (27.0-33.0) pg MCHC (31.0-35.0) g/dl RDW (11.0-16.0) % Plt Count (160-400) X10*3/uL MPV (9.4-12.3) fL Immature Gran % (Auto) (0.0-0.4) % Neut % (Auto) (45-73) % Lymph % (Auto) (20-40) % [place] % (Auto) (2-11) % Eos % (Auto) (0-4) % Baso % (Auto) (0-2) % Lymph # (Auto) (1.2-4.9) X10*3/uL [place] # (Auto) (0.1-1.2) X10*3/uL Eos # (Auto) (0.0-0.4) X10*3/uL Baso # (Auto) (0.0-0.2) X10*3/uL Abs Immat Gran (auto) (0.00-0.03) X10*3/uL Absolute Neuts (auto) (2.0-8.3) x10*3/uL Absolute Nucleated RBC (0.0-0.012) X10*3/uL Nucleated RBC % (auto) (0.0-0.2) /100WBC PT (10.0-13.1) SEC INR (0.9-1.1) APTT (26.0-36.4) SEC Sodium (135-145) mmol/L Potassium (3.3-5.1) mmol/L Chloride (96-108) mmol/L Carbon Dioxide (22-29) mmol/L Anion Gap (12-20) BUN (9-16) mg/dL Creatinine (0.5-1.4) mg/dL Estim Creat Clear Calc Estimated GFR Random Glucose (60-115) mg/dL Lactic Acid (0.5-2.0) mmol/L Calcium (8.4-10.2) mg/dL Total Bilirubin (0.0-1.0) mg/dL AST (5-31) U/L ALT (0-31) U/L Alkaline Phosphatase (39-117) U/L Troponin I High Sens (<3.5-17.0) ng/L Total Protein (6.5-8.0) g/dL Albumin (3.5-5.0) g/dL Lipase (8-78) U/L Urine Color Dark Yellow Urine Appearance Turbid Urine pH 5.5 (5.0-9.0) Ur Specific [place] 1.015 (1.005-1.025) Urine Protein 30 (1+) H (Neg-Trace) mg/dL Urine Glucose (UA) Negative (Negative) mg/dL Urine Ketones Negative (Negative) mg/dL Urine Blood Small (1+) H (Negative) Urine Nitrite Negative (Negative) Ur Leukocyte Esterase Large (3+) H (Negative) Urine RBC 0-2 (0-2) /HPF Urine WBC >50 H (0-5) /HPF Ur Squamous Epith Cells 3-5 (0-2) /HPF Urine Bacteria 4+ (None Seen) Hyaline Casts 0-2 (0-2) /LPF COVID-19 (MARIANNA) (Negative) COVID-19 Clin Com ECG Data ECG #1: Attestation: I personally reviewed and interpreted this ECG as follows: Interpretation: 0220: Atrial fibrillation with a rate of 56, normal QRS and QTC duration, no ST segment elevation, no ST segment depression, Q-wave in lead V1, nonspecific T- wave abnormalities. Discharge Plan Discharge Clinical Impression: Acute alteration in mental status, Acute urinary retention Urinary tract infection Qualifiers: Urinary tract infection type: site unspecified Hematuria presence: without hematuria Qualified Code(s): N39.0 - Urinary tract infection, site not specified Pneumonia Qualifiers: Laterality: bilateral Lung location: lower lobe of lung Patient Disposition: Admitted As Inpatient
[2022-05-29] MEDS: 0.9 % Sodium Chloride 1,000 ML 125 ML IV (02:35)
[2022-05-29] MEDS: cefTRIAXone sodium 1 GM in 0.9 % Sodium Chloride 50 ML IV (02:42)
[2022-05-29 02:45] LABS: Basophils Percent Auto 0.4 % (0-2); Eosinophils Absolute Auto 0.3 X10*3/uL (0.0-0.4); Eosinophils Percent Auto 5.5 % (0-4); Hematocrit 31.3 % (37.0-47.0); Hemoglobin 10.1 g/dl (12.0-16.0); Imm Gran Abs Auto 0.02 X10*3/uL (0.00-0.03); Imm Gran Pct Auto 0.4 % (0.0-0.4); MANUAL DIFF FLAG NO; Mean Corpuscular HGB Conc 32.3 g/dl (31.0-35.0); Mean Corpuscular Hemoglobin 29.6 pg (27.0-33.0); Mean Corpuscular Volume 91.8 fL (80.0-98.0); Mean Platelet Volume 10.2 fL (9.4-12.3); Monocytes Absolute Auto 0.7 X10*3/uL (0.1-1.2); Monocytes Percent Auto 14.2 % (2-11); Neutrophils Absolute Auto 2.8 x10*3/uL (2.0-8.3); Neutrophils Percent Auto 58.5 % (45-73); Platelet Count 148 X10*3/uL (160-400); Red Blood Count 3.41 X10*6/uL (4.20-5.50); White Blood Count 4.7 X10*3/uL (4.8-10.8)
[2022-05-29 02:46] LABS: Appearance Urine Turbid; Color Urine Dark Yellow; Glucose Urine UA Negative (Negative); Leukocyte Esterase Urine Large (3+) (Negative); Nitrite Urine Negative (Negative); PH 5.5 (5.0-9.0); Specific Gravity - Urine 1.015 (1.005-1.025); Urine Blood Small (1+) (Negative); Urine Ketones Negative (Negative); Urine Protein 30 (1+) mg/dL (Neg-Trace)
[2022-05-29 02:51] LABS: INTERNATIONAL NORM RATIO 1.4 (0.9-1.1); Prothrombin Time 16.3 SEC (10.0-13.1)
[2022-05-29 02:53] LABS: Partial Thromboplastin Time 35.2 SEC (26.0-36.4)
[2022-05-29 02:54] LABS: Bacteria Urine 4+ (None Seen); Hyaline Casts Urine 0-2 /LPF (0-2); RBC Urine 0-2 /HPF (0-2); UACC Culture Trigger YES; WBC Urine >50 /HPF (0-5)
[2022-05-29 02:57] LABS: Lactic Acid 0.7 mmol/L (0.5-2.0)
[2022-05-29 02:58] LABS: COVID-19 Test Negative (Negative)
[2022-05-29 03:04] LABS: Alanine Aminotransferase 14 U/L (0-31); Albumin Level 3.2 g/dL (3.5-5.0); Alkaline Phosphatase 72 U/L (39-117); Anion Gap 14 (12-20); Aspartate Amino Transferase 28 U/L (5-31); Bilirubin Total 0.2 mg/dL (0.0-1.0); Blood Urea Nitrogen 15 mg/dL (9-16); Calcium 9.1 mg/dL (8.4-10.2); Carbon Dioxide 30 mmol/L (22-29); Chloride 102 mmol/L (96-108); Creatinine Clr Calc Pharmacy 107.3; Estimated Glomerular Filt Rate > 60; Glucose Random 110 mg/dL (60-115); Lipase < 4 U/L (8-78); Potassium 4.6 mmol/L (3.3-5.1); Sodium 141 mmol/L (135-145); Total Protein 5.6 g/dL (6.5-8.0)
[2022-05-29 03:09] LABS: Troponin-I High Sensitivity 10.7 ng/L (<3.5-17.0)
[2022-05-29] MEDS: Doxycycline Hyclate 100 MG in 0.9 % Sodium Chloride 250 ML 166.67 MG IV (04:08)
--- NOTE | 2022-05-29 04:50 | PC.NURSE ---
med rec complete using MAR provided from facility
--- NOTE | 2022-05-29 09:41 | PC.NURSE ---
pt alert but very confused, pt does have hx of dementia, pt unable to answer basic questions like where she is what day it is and unable to answer if she is having pain vs stable and snell cath in place and draining well, emptied 850ml of dark yellow urine
--- NOTE | 2022-05-29 10:13 | PHA.MEDREC ---
Pharmacy Consult ? Medication Reconciliation Pharmacy has completed the medication reconciliation. MED REC NOW COMPLETE, MANY MEDICATIONS WERE MISSED. GOT LIST FROM [facility]
[2022-05-29] MEDS: 0.9 % Sodium Chloride 1,000 ML 100 ML IVCONT (13:04)
[2022-05-29] MEDS: cefEPime HCl 2 GM in 0.9 % Sodium Chloride 50 ML IV (13:04)
--- NOTE | 2022-05-29 13:22 | P.HPHOSP_ITS ---
History of Present Illness Date of Service: 05/29/22 Attending physician on admission: Colt Santos Chief Complaint: UTI, AMS 77 year old female with history of dementia oriented to self at baseline without behavioral disturbance, CHF, insulin depedent type 2 diabetes, paroxysmal atrial fibrillation on eliquis, gout, hdl, htn, and hx GI bleed brought to the ED from [facility] where she resides for evaluation of change in mental status with increased confusion, inability to follow commands, inability to form sentence, and ? of hallucinations. There was also reported to be no urine output at the [facility] during the 3-11 shift and no bladder scanner was available at the facility. In ED, bladder scan showed 657cc retained urine and snell catheter was placed. UA showed 3+ leuks, 4+ bacteria, 1+ blood, 1+ protein, nitrite negative. CBC revealed pancytopenia with WBC 4.7. Lactic acid 0/7/ Glucose 110. Renal function normal. CXR with bilateral streaky/patchy lower lung opacities possibly representing multifocal pneumonia. There is also small b/l pleural effusions. Blood pressure elevated at 171/64, vital signs otherwise stable. She has received a 1g ceftriaxone and 100mg IV doxycycline as well as fluids. Review of Systems Review of Systems: Unable to ascertain history and ROS from patient due to AMS [facility] Medical History Atrial fibrillation Dementia Diabetes GI bleed Gout High cholesterol Hypertension Family History (Updated 05/29/22 @ 13:36 by ZAK Mcginnis) Mother No problems noted. Father No problems noted. Pertinent family history: unable to fully ascertain due to ams Social History Household Members: Spouse Housing: House Do you presently have visiting nurse or other home services: No Alcohol intake: unknown Second Hand Smoke Exposure: No Advance Directives: No Advance Directives Information Provided: No service: No Current occupational status: retired Narrative: Constitutional - Awake and Alert, No apparent distress Eyes - PERRLA, EOMI Cardiovascular - S1S2, RRR, No edema Respiratory - Normal lung expansion, Normal respiratory effort, No respiratory distress, CTA bilaterally Gastrointestinal - NT / ND; +BS; No rebound or guarding - Snell catheter in place draining dark yellow urine Extremities - no calf tenderness bilaterally, no swelling Skin - Warm/Dry. Large area of non-blanching erythema without significant skin breakdown around the gluteal cleft Neurological - Alert & oriented x3, No focal deficit Psychological - Appropriate affect Meds Allergies Allergy/AdvReac Type Severity Reaction Status Date / Time Penicillins Allergy Mild UNKNOWN Verified 05/29/22 00:54 erythromycin base Allergy Unknown UNKNOWN Verified 05/29/22 00:54 [ERYTHROMYCIN BASE] flecainide [FLECAINIDE] Allergy Unknown UNKNOWN Verified 05/29/22 00:54 Active Medications: Current Medications Sodium Chloride (Ns) 1,000 mls @ 100 mls/hr IVCONT .Q10H [facility] Last Admin: 05/29/22 13:04 Dose: 100 mls/hr Cefepime HCl 2 gm/ Sodium (Chloride) 50 mls @ 100 mls/hr IV Q12H [facility] Last Admin: 05/29/22 13:04 Dose: 100 mls/hr Sodium Chloride (0.9 % Sodium Chloride Flush 3 Ml Syringe) 3 ml IVFLUSH QSHIFT [facility] Home Medications Medication Instructions Recorded Confirmed Last Taken Type acetaminophen 325 mg tablet 650 mg PO Q4-6H PRN Pain, Mild 05/29/22 05/29/22 Unknown History allopurinol 300 mg tablet 1 tab PO DAILY 05/29/22 05/29/22 Unknown History apixaban 5 mg tablet (Eliquis) 1 tab PO BID 05/29/22 05/29/22 Unknown History cholecalciferol (vitamin D3) 25 25 mcg PO DAILY 05/29/22 05/29/22 Unknown History mcg (1,000 unit) tablet (Vitamin D3) divalproex 125 mg tablet,delayed 125 mg PO TID@0800,1400,199905/29/22 05/29/22 Unknown History release escitalopram oxalate 10 mg tablet 1 tab PO DAILY 05/29/22 05/29/22 Unknown History insulin glargine 100 unit/mL (3 30 unit subcut BEDTIME 05/29/22 05/29/22 Unknown History mL) subcutaneous pen (Basaglar KwikPen U-100 Insulin) lisinopril 2.5 mg tablet 1 tab PO DAILY 05/29/22 05/29/22 Unknown History metoprolol succinate 25 mg 1 tab PO DAILY 05/29/22 05/29/22 Unknown History tablet,extended release 24 hr miconazole nitrate 2 % topical 1 appl topical BID 05/29/22 05/29/22 Unknown History cream multivitamin 1 tab PO DAILY 05/29/22 05/29/22 Unknown History nystatin 100,000 unit/gram topical 1 appl topical DAILY 05/29/22 05/29/22 Unknown History powder (Nystop) ondansetron HCl 4 mg tablet 4 mg PO Q8H PRN Nausea 05/29/22 05/29/22 Unknown History polyethylene glycol 3350 17 17 g PO DAILY 05/29/22 05/29/22 Unknown History gram/dose oral powder (Miralax) Physical Exam Vital Signs and Narrative: Vital Signs: Last Vital Signs Temp 99.0 F 05/29/22 12:13 Pulse 66 05/29/22 12:13 Resp 16 05/29/22 12:13 BP 132/69 05/29/22 12:13 Pulse Ox 95 05/29/22 12:13 O2 Del Method 05/29/22 12:13 BMI result Body Mass Index 32.3 Results Labs CBC and Chem 7: 05/29/22 02:30 05/29/22 02:30 Labs: Laboratory Results - last 24 hr 05/29/22 05/29/22 05/29/22 02:30 02:30 02:30 MCV 91.8 MCH 29.6 MCHC 32.3 RDW 13.0 Plt Count 148 L MPV 10.2 Immature Gran % (Auto) 0.4 Neut % (Auto) 58.5 Lymph % (Auto) 21.0 Elbert % (Auto) 14.2 H Eos % (Auto) 5.5 H Baso % (Auto) 0.4 Lymph # (Auto) 1.0 L Elbert # (Auto) 0.7 Eos # (Auto) 0.3 Baso # (Auto) 0.0 Abs Immat Gran (auto) 0.02 Absolute Neuts (auto) 2.8 Absolute Nucleated RBC 0.000 Nucleated RBC % (auto) 0.0 PT 16.3 H INR 1.4 H APTT 35.2 Anion Gap 14 Estim Creat Clear Calc 107.3 Estimated GFR > 60 Random Glucose 110 Lactic Acid Calcium 9.1 Total Bilirubin 0.2 AST 28 D ALT 14 Alkaline Phosphatase 72 Total Protein 5.6 L Albumin 3.2 L Lipase < 4 L Urine Color Urine Appearance Urine pH Ur Specific [place] Urine Protein Urine Glucose (UA) Urine Ketones Urine Blood Urine Nitrite Ur Leukocyte Esterase Urine RBC Urine WBC Ur Squamous Epith Cells Urine Bacteria Hyaline Casts COVID-19 (MARIANNA) COVID-19 Clin Com 05/29/22 05/29/22 05/29/22 02:30 02:32 02:32 MCV MCH MCHC RDW Plt Count MPV Immature Gran % (Auto) Neut % (Auto) Lymph % (Auto) Elbert % (Auto) Eos % (Auto) Baso % (Auto) Lymph # (Auto) Elbert # (Auto) Eos # (Auto) Baso # (Auto) Abs Immat Gran (auto) Absolute Neuts (auto) Absolute Nucleated RBC Nucleated RBC % (auto) PT INR APTT Anion Gap Estim Creat Clear Calc Estimated GFR Random Glucose Lactic Acid 0.7 Calcium Total Bilirubin AST ALT Alkaline Phosphatase Total Protein Albumin Lipase Urine Color Dark Yellow Urine Appearance Turbid Urine pH 5.5 Ur Specific [place] 1.015 Urine Protein 30 (1+) H Urine Glucose (UA) Negative Urine Ketones Negative Urine Blood Small (1+) H Urine Nitrite Negative Ur Leukocyte Esterase Large (3+) H Urine RBC 0-2 Urine WBC >50 H Ur Squamous Epith Cells 3-5 Urine Bacteria 4+ Hyaline Casts 0-2 COVID-19 (MARIANNA) Negative COVID-19 Clin Com See Note Imaging Radiologist's Impressions: Impressions Chest X-Ray 05/29/22 02:11 IMPRESSION: Bilateral streaky and patchy lower lung opacities could multifocal pneumonia. Small bilateral pleural effusions suspected. Assessment and Plan (1) Urinary tract infection: Qualifiers: Hematuria presence: without hematuria Urinary tract infection type: site unspecified Qualified Code(s): N39.0 - Urinary tract infection, site not specified Status: Acute (2) Acute urinary retention: Status: Acute (3) Acute alteration in mental status: Status: Acute (4) Pneumonia: Qualifiers: Laterality: bilateral Lung location: lower lobe of lung Status: Acute Plan 77 year old female with history of dementia oriented to self at baseline without behavioral disturbance, CHF, insulin depedent type 2 diabetes, paroxysmal atrial fibrillation on eliquis, gout, hdl, htn, and hx GI bleed brought to the ED from [facility] where she resides to be admitted for complicated UTI with acute change in mental status and urinary retention requiring snell catheter as well as possible pneumonia. 1- Complicated UTI with acute urinary retention and acute change in mental status -No leukocytosis, lactic acid normal, hemodynamically stable. No severe sepsis -UA with 3+ leuks, 1+ blood, 4+ bacteria in ED. Urine culture and blood cultures pending -Recevied 1g IV ceftriaxone and 100mg IV doxycycline in ED. Continue 1g ceftriaxone daily -Continue snell cather with strict I&O -Continue IV fluids 2- Dementia without behavioral disturbance- acute change from baseline patient is disoriented and confused unable to answer simple questions or speak in meaningful sentences/phrases -Likely secondary to acute infection -Swallow assessment ordered due to acute change in mental status. Nutrition consult placed as well -Diet recommendation pending evaluation above 3-Pneumonia -CXR in ED with possible multifocal pneumonia -Will continue 1g IV ceftriaxone as above -No evidence of respiratory distress or hypoxia. Afebrile 4-Insulin dependent type 2 diabetes -POC glucose -Diabetic diet pending swallow eval and nutrition consult -Hold basaglar for now -Humalog SSI 5-Paroxysmal afib- rate controlled at 66 -Continue home eliquis -Continue metoprolol for rate control 6-HTN- controlled -Continue metoprolol as above -Hold lisinopril for now 7-Depression -Continue home meds 8-Chronic gout -Continue allopurinol DVT prophylaxis- on eliquis DNR/DNI- per [facility] 01/2021 Patient requries inpatient stay of at least 2 midnights for treatment of complicated UTI with acute mental status change and urinary retention requiring snell catherization and IV antibiotics. Quality Stroke Does the patient have a stroke diagnosis?: No VTE Prior VTE?: No VTE Risk Level:: Medical - moderate - high VTE Device Contraindication: Treatment Not Indicated VTE Drug Contraindication: N/A - Med Ordered
[2022-05-29 18:23] LABS: Glucose, Whole Blood 102 mg/dL (60-115)
[2022-05-29] MEDS: Apixaban 5 MG TABLET PO (23:28)
[2022-05-29] MEDS: Divalproex Sodium Sprinkles 125 MG CAP.DR.SPR PO (23:28)
[2022-05-30] MEDS: 0.9 % Sodium Chloride 1,000 ML 100 ML IVCONT (01:43)
[2022-05-30] MEDS: 0.9 % Sodium Chloride Flush 3 ML SYRINGE IVFLUSH ×3 (01:43→20:39)
[2022-05-30 05:50] VITALS: BP 148/89; PULSE 88; RESP 16; TEMP 36.2; O2SAT 93
[2022-05-30 07:17] VITALS: BP 131/75; PULSE 87; RESP 22; TEMP 36.3; O2SAT 98
[2022-05-30 07:51] LABS: Glucose, Whole Blood 117 mg/dL (60-115)
[2022-05-30] MEDS: cefTRIAXone sodium 1 GM in 0.9 % Sodium Chloride 50 ML IV (09:20)
[2022-05-30] MEDS: Escitalopram Oxalate 10 MG TABLET PO (09:21)
[2022-05-30] MEDS: Metoprolol Succinate ER 25 MG TAB.ER.24H PO (09:21)
[2022-05-30] MEDS: Cholecalciferol (Vitamin D3) 25 MCG TABLET PO (09:21)
[2022-05-30] MEDS: Apixaban 5 MG TABLET PO ×2 (09:21→20:39)
[2022-05-30] MEDS: allopurinoL 300 MG TABLET PO (09:21)
[2022-05-30] MEDS: Divalproex Sodium Sprinkles 125 MG CAP.DR.SPR PO (09:21)
--- NOTE | 2022-05-30 10:31 | HO.PM.IMPN ---
Subjective Subjective Date of Service: 05/30/22 Interval History: cc: ams interval history: sleepy Review of Systems Review of Systems: Yes Unobtainable due to mental status Physical Exam Vital Signs: Vital Signs: Last Vital Signs Temp 97.4 F 05/30/22 07:17 Pulse 87 05/30/22 07:17 Resp 22 H 05/30/22 07:17 BP 131/75 05/30/22 07:17 Pulse Ox 98 05/30/22 07:17 O2 Del Method 05/30/22 07:17 O2 Flow Rate 2.5 05/30/22 07:17 BMI result Body Mass Index 32.3 General: lethargic oriented to self only Resp: Crackles at bases bilateral, no accessory muscles used CVS: S1,S2,RRR GI: soft, non tender, non distended Neuro: lethargic, non participatory Psych: appropriate affect, impaired insight Objective Data Active Medications Allopurinol (Allopurinol 300 Mg Tablet) 300 mg PO DAILY [facility] Last Admin: 05/30/22 09:21 Dose: 300 mg Documented By: GUMARO Apixaban (Apixaban 5 Mg Tablet) 5 mg PO BID [facility] Last Admin: 05/30/22 09:21 Dose: 5 mg Documented By: GUMARO Escitalopram Oxalate (Escitalopram Oxalate 10 Mg Tablet) 10 mg PO DAILY [facility] Last Admin: 05/30/22 09:21 Dose: 10 mg Documented By: GUMARO Ceftriaxone Sodium 1 gm/ (Sodium Chloride) 50 mls @ 100 mls/hr IV Q24H [facility] Last Infusion: 05/30/22 10:08 Dose: 0 mls/hr Documented By: GUMARO Insulin Human Lispro (Insulin Lispro 100 Unit/Ml 3 Ml Vial) 0 unit SUBCUT QIDACHS [facility]; Protocol Last Admin: 05/30/22 09:11 Dose: Not Given Documented By: DABA Non-Admin Reason: No Insulin Coverage Metoprolol Succinate (Metoprolol Succinate Er 25 Mg Tab.Er.24h) 25 mg PO DAILY [facility]; Protocol Last Admin: 05/30/22 09:21 Dose: 25 mg Documented By: GUMARO Ondansetron HCl (Ondansetron Odt 4 Mg Tab.Rapdis) 4 mg TRANSLINGU Q8H PRN PRN Reason: Nausea Polyethylene Glycol (Polyethylene Glycol 3350 17 Gm Powd.Pack) 17 gm PO DAILY [facility] Sodium Chloride (0.9 % Sodium Chloride Flush 3 Ml Syringe) 3 ml IVFLUSH QSHIFT [facility] Last Admin: 05/30/22 07:17 Dose: Not Given Documented By: RATNA Non-Admin Reason: IV Running Vitamin D (Cholecalciferol (Vitamin D3) 25 Mcg Tablet) 25 mcg PO DAILY [facility] Last Admin: 05/30/22 09:21 Dose: 25 mcg Documented By: GUMARO Labs CBC & Chem 7: 05/29/22 02:30 05/29/22 02:30 Labs: Laboratory Results - last 24 hr 05/29/22 05/30/22 18:18 07:16 POC Glucose 102 117 H Microbiology Microbiology Results: Microbiology 05/29/22 02:30 Blood Culture - Preliminary Blood - Venous No growth after 24 hours. 05/29/22 02:30 Blood Culture - Preliminary Blood - Venous No growth after 24 hours. Assessment and Plan (1) Acute alteration in mental status: Status: Acute Plan 77 year old female with history of dementia oriented to self at baseline without behavioral disturbance, CHF, insulin depedent type 2 diabetes,? paroxysmal atrial fibrillation on eliquis, gout, hdl, htn, and hx GI bleed brought to the ED from [facility] where she resides to be admitted for complicated UTI with acute change in mental status and urinary retention requiring snell catheter as well as possible pneumonia toxic metabolic encephalopathy multifactorial uti with urinary retention - snell, rocephin, follow up cultures hold depakote doubt pneumonia more likely atelectasis, aspiration, from decreased mental status monitor DM inuslin dementia with behaviour abnormalities holding depakote pafib eliquis metoprolol htn metoprolol gout allopurinol dvt prophylaxis - on eliquis DNR/DNI reason for continued hospitalization: Quality Stroke Does the patient have a stroke diagnosis?: No VTE Prior VTE?: No VTE Risk Level:: Medical - moderate - high VTE Device Contraindication: Treatment Not Indicated VTE Drug Contraindication: N/A - Med Ordered
[2022-05-30 10:40] VITALS: BP 131/63; PULSE 63; RESP 22; TEMP 36.3; O2SAT 100
[2022-05-30 11:01] LABS: Glucose, Whole Blood 110 mg/dL (60-115)
[2022-05-30] MEDS: polyethylene glycoL 3350 17 GM POWD.PACK PO (12:31)
[2022-05-30 13:14] VITALS: BMI 32.3
--- NOTE | 2022-05-30 13:16 | MHC.CLN ---
RE: CONSULT PT WITH INCREASED NUTRITION RISK R/T PRESSURE INJURY DIET RX: REGULAR-PT MAY BENEFIT FROM 2200DM DIET R/T DM RECOMMEND ADDING GLUCERNA BID TO INCREASE KCALS AND PROMOTE WOUND HEALING SUPP TO PROVIDE 474KCALS, 20 G PROTEIN MONITOR PO INTAKE CLOSELY SEE ALSO FULL CLINICAL NUTRITION ASSESSMENT
[2022-05-30 15:46] VITALS: BP 142/77; PULSE 59; RESP 18; TEMP 36.4; O2SAT 99
[2022-05-30 16:01] LABS: Glucose, Whole Blood 87 mg/dL (60-115)
[2022-05-30 19:27] VITALS: BP 145/88; PULSE 68; RESP 15; TEMP 36.7; O2SAT 97
[2022-05-30 20:00] LABS: Glucose, Whole Blood 104 mg/dL (60-115)
[2022-05-30 23:17] VITALS: BP 145/99; PULSE 75; RESP 16; TEMP 36.4; O2SAT 95
[2022-05-31 03:23] VITALS: BP 167/77; PULSE 65; RESP 16; TEMP 36.1; O2SAT 96
[2022-05-31 06:15] LABS: Hematocrit 30.4 % (37.0-47.0); Hemoglobin 9.8 g/dl (12.0-16.0); Mean Corpuscular HGB Conc 32.2 g/dl (31.0-35.0); Mean Platelet Volume 10.2 fL (9.4-12.3); Platelet Count 186 X10*3/uL (160-400); Red Blood Count 3.27 X10*6/uL (4.20-5.50); White Blood Count 5.9 X10*3/uL (4.8-10.8)
[2022-05-31 06:48] LABS: Anion Gap 13 (12-20); Blood Urea Nitrogen 12 mg/dL (9-16); Calcium 9.4 mg/dL (8.4-10.2); Carbon Dioxide 27 mmol/L (22-29); Chloride 104 mmol/L (96-108); Creatinine Clr Calc Pharmacy 128.3; Estimated Glomerular Filt Rate > 60; Glucose Fasting 120 mg/dL (60-99); Sodium 140 mmol/L (135-145)
[2022-05-31 07:34] LABS: Glucose, Whole Blood 124 mg/dL (60-115)
[2022-05-31 07:51] VITALS: BP 156/106; PULSE 85; RESP 14; TEMP 36.9; O2SAT 91
--- NOTE | 2022-05-31 08:50 | P.CDIC_ITS ---
CDI Concurrent Query Documentation Clarification: PHYSICIAN'S DOCUMENTATION REQUEST Date of Query: 05/31/22 0850 Patient Name: Lesly Márquez Admit Date: 05/29/22 Dear Doctor, A review of the medical record indicates additional documentation may be indicated. Please review below and update the documentation accordingly. Clinical Indicators: Risk Factors/Clinical Indicators/Treatments Wound care notes 05/30 - Pressure injury Stage II coccyx. foam dressing c/d/i Nutrition notes 05/30 - Glucerna BID to increase KCals and to promote wound healing. Based on the above, could you please provide, in the Progress Notes, further information regarding the ulcer/wound: * If a pressure ulcer, please also include the stage* of the ulcer: * Stage 1 - Skin intact, non-blanchable redness * Stage 2 - Partial thickness loss of dermis, includes intact or open blister * Stage 3 - Full thickness tissue not including bone, tendon, or muscle * Other * Unable to determine *Source: National Pressure Ulcer Advisory Panel (NPUAP) Use of terms such as suspected, likely, concern for, or probable (associated with a specific diagnosis that is being evaluated, monitored, or treated as if it exists) are acceptable and can be coded in the inpatient setting, when documented at the time of discharge. Thank you, Daniella Mcclure [facility], CDIS Extension: [phone] Please use your independent medical judgment in providing your response. THIS QUERY IS PART OF THE PERMANENT MEDICAL RECORD Provider Response: Other Other Diagnosis: ?Pressure injury Stage II coccyx.
[2022-05-31] MEDS: cefTRIAXone sodium 1 GM in 0.9 % Sodium Chloride 50 ML IV (08:55)
[2022-05-31] MEDS: Metoprolol Succinate ER 25 MG TAB.ER.24H PO (08:56)
[2022-05-31] MEDS: Cholecalciferol (Vitamin D3) 25 MCG TABLET PO (08:56)
[2022-05-31] MEDS: Apixaban 5 MG TABLET PO ×2 (08:56→21:13)
[2022-05-31] MEDS: Escitalopram Oxalate 10 MG TABLET PO (08:56)
[2022-05-31] MEDS: allopurinoL 300 MG TABLET PO (08:56)
[2022-05-31] MEDS: polyethylene glycoL 3350 17 GM POWD.PACK PO (08:57)
--- NOTE | 2022-05-31 09:19 | MHC.CM.PN ---
IMM 05/31/22, EMR REVIEWED PT W/DEMENTA ADMITTED W/AMS AND UTI, CM ATTEMPTED TO CANTACT PT'S HAUSBAND/HCP MUNIRA AT 0907 AT NUMBER ON FILE TO DELIVER IMM, NO ANSWER AND MESSAGE LEFT W/CM CONTACT NUMBER REQUESTING CALL BACK, IMM TO BE SENT CERTIFIED MAIL, PT RESIDES AT [facility] AND PLAN WILL BE TO RETURN WHEN MEDICALLY CLEARED. HCP/IVETTE GONZALEZ, COPY ON FILE FROM PREVIOUS ADMIT. CM REQUESTED PCP AND COVID STATUS FROM [facility].
--- NOTE | 2022-05-31 09:32 | P.PNIM_ITS ---
Subjective Subjective Date of Service: 05/31/22 Interval History: cc: ams interval history: more alert Review of Systems Review of Systems: Yes Unobtainable due to mental status Physical Exam Vital Signs: Vital Signs: Last Vital Signs Temp 98.5 F 05/31/22 07:51 Pulse 85 05/31/22 07:51 Resp 14 05/31/22 07:51 BP 156/106 H 05/31/22 07:51 Pulse Ox 91 L 05/31/22 07:51 O2 Del Method 05/31/22 07:51 O2 Flow Rate 2.0 05/30/22 15:46 BMI result Body Mass Index 32.3 General: more alert, not participating in discussion Resp: Crackles at bases bilateral, no accessory muscles used CVS: S1,S2,RRR GI: soft, non tender, non distended Neuro: lethargic, non participatory Psych: appropriate affect, impaired insight Objective Data Active Medications Allopurinol (Allopurinol 300 Mg Tablet) 300 mg PO DAILY [facility] Last Admin: 05/31/22 08:56 Dose: 300 mg Documented By: PHIL Apixaban (Apixaban 5 Mg Tablet) 5 mg PO BID [facility] Last Admin: 05/31/22 08:56 Dose: 5 mg Documented By: PHIL Escitalopram Oxalate (Escitalopram Oxalate 10 Mg Tablet) 10 mg PO DAILY [facility] Last Admin: 05/31/22 08:56 Dose: 10 mg Documented By: PHIL Ceftriaxone Sodium 1 gm/ (Sodium Chloride) 50 mls @ 100 mls/hr IV Q24H [facility] Last Admin: 05/31/22 08:55 Dose: 100 mls/hr Documented By: PHIL Insulin Human Lispro (Insulin Lispro 100 Unit/Ml 3 Ml Vial) 0 unit SUBCUT QIDACHS [facility]; Protocol Last Admin: 05/31/22 08:10 Dose: Not Given Documented By: PHIL Non-Admin Reason: No Insulin Coverage Metoprolol Succinate (Metoprolol Succinate Er 25 Mg Tab.Er.24h) 25 mg PO DAILY [facility]; Protocol Last Admin: 05/31/22 08:56 Dose: 25 mg Documented By: PHIL Ondansetron HCl (Ondansetron Odt 4 Mg Tab.Rapdis) 4 mg TRANSLINGU Q8H PRN PRN Reason: Nausea Polyethylene Glycol (Polyethylene Glycol 3350 17 Gm Powd.Pack) 17 gm PO DAILY [facility] Last Admin: 05/31/22 08:57 Dose: 17 gm Documented By: PHIL Sodium Chloride (0.9 % Sodium Chloride Flush 3 Ml Syringe) 3 ml IVFLUSH QSHIFT [facility] Last Admin: 05/30/22 20:39 Dose: 3 ml Documented By: SID Vitamin D (Cholecalciferol (Vitamin D3) 25 Mcg Tablet) 25 mcg PO DAILY [facility] Last Admin: 05/31/22 08:56 Dose: 25 mcg Documented By: PHIL Labs CBC & Chem 7: 05/31/22 05:20 05/31/22 05:20 Labs: Laboratory Results - last 24 hr 05/30/22 05/30/22 05/30/22 10:54 15:56 19:56 MCV MCH MCHC RDW Plt Count MPV Absolute Nucleated RBC Nucleated RBC % (auto) Anion Gap Estim Creat Clear Calc Estimated GFR POC Glucose 110 87 104 Fasting Glucose Calcium 05/31/22 05/31/22 05/31/22 05:20 05:20 07:27 MCV 93.0 MCH 30.0 MCHC 32.2 RDW 13.0 Plt Count 186 D MPV 10.2 Absolute Nucleated RBC 0.000 Nucleated RBC % (auto) 0.0 Anion Gap 13 Estim Creat Clear Calc 128.3 Estimated GFR > 60 POC Glucose 124 H Fasting Glucose 120 H Calcium 9.4 Microbiology Microbiology Results: Microbiology 05/29/22 Unknown Urine Culture - Final Urine Catheterized - Snell Catheter Staphylococcus epidermidis 05/29/22 02:30 Blood Culture - Preliminary Blood - Venous No growth after 48 hours. 05/29/22 02:30 Blood Culture - Preliminary Blood - Venous No growth after 48 hours. Assessment and Plan (1) Acute alteration in mental status: Status: Acute Plan 77 year old female with history of dementia oriented to self at baseline without behavioral disturbance, CHF, insulin depedent type 2 diabetes,? paroxysmal atrial fibrillation on eliquis, gout, hdl, htn, and hx GI bleed brought to the ED from [facility] where she resides to be admitted for complicated UTI with acute change in mental status and urinary retention requiring snell catheter as well as possible pneumonia toxic metabolic encephalopathy multifactorial uti with urinary retention - snell, rocephin, urine growing staph epi hold depakote doubt pneumonia more likely atelectasis, aspiration, from decreased mental status monitor DM inuslin dementia with behaviour abnormalities holding depakote pafib eliquis metoprolol htn metoprolol gout allopurinol dvt prophylaxis - on eliquis DNR/DNI reason for continued hospitalization: mental status not yet at baseline Quality Stroke Does the patient have a stroke diagnosis?: No VTE Prior VTE?: No VTE Risk Level:: Medical - moderate - high VTE Device Contraindication: Treatment Not Indicated VTE Drug Contraindication: N/A - Med Ordered
[2022-05-31] MEDS: 0.9 % Sodium Chloride Flush 3 ML SYRINGE IVFLUSH ×2 (09:41→15:57)
--- NOTE | 2022-05-31 10:08 | MHC.CLN ---
F/U DIET=DIABETIC 2200 KCALS. SUPPLEMENT GLUCERNA BID PROVIDES ADDITIONAL 474 KCALS, 20 G PROTEIN. DIET AND SUPPLEMENT APPROPRIATE. PATIENT WITH STAGE II PRESSURE AREA TO COCCYX. ATE 100% OF MEAL AT DINNER. CONTINUE TO FOLLOW FOR INTAKE AND WOUND.
--- NOTE | 2022-05-31 10:35 | MHC.CDI.CONC ---
CDI Concurrent Query Documentation Clarification: PHYSICIAN'S DOCUMENTATION REQUEST Date of Query: 05/31/22 1036 Patient Name: Lesly Márquez Admit Date: 05/29/22 Dear Doctor, A review of the medical record indicates additional documentation may be needed. Please review below and update the documentation accordingly. Specifics: Risk Factors/Clinical Indicators/Treatments PN: Dementia with behavioral abnormalities. Oriented to self at baseline. SNF Based on the above, could you clarify in the Progress Notes which, if any of the following, specifics? Dementia - indicate type of dementia, Alzheimer's, senile, vascular, Lewy body, etc. Other etiology (please specify) Unable to determine Use of terms such as suspected, likely, concern for, or probable (associated with a specific diagnosis that is being evaluated, monitored, or treated as if it exists) are acceptable and can be coded in the inpatient setting, when documented at the time of discharge. Thank you, Daniella Mcclure [facility], CDIS Extension: [phone] Please use your independent medical judgment in providing your response. THIS QUERY IS PART OF THE PERMANENT MEDICAL RECORD Provider Response: Other Other Diagnosis: unspecified
[2022-05-31 11:23] VITALS: BP 166/73; PULSE 76; RESP 16; TEMP 37; O2SAT 92
[2022-05-31 11:29] LABS: Glucose, Whole Blood 135 mg/dL (60-115)
[2022-05-31 15:14] VITALS: BP 136/84; PULSE 71; RESP 15; TEMP 36.1; O2SAT 94
[2022-05-31 16:14] LABS: Glucose, Whole Blood 116 mg/dL (60-115)
[2022-05-31 20:00] VITALS: BP 152/69; PULSE 81; RESP 18; TEMP 36.7; O2SAT 95
[2022-05-31 20:26] LABS: Glucose, Whole Blood 128 mg/dL (60-115)
[2022-06-01] VITALS (7 sets, daily range): BP systolic 110–175; BP diastolic 59–79; PULSE 53–82; RESP 17–20; TEMP 36.2–36.8; O2SAT 91–97
[2022-06-01] MEDS: 0.9 % Sodium Chloride Flush 3 ML SYRINGE IVFLUSH ×4 (01:01→22:41)
[2022-06-01 07:07] LABS: Hematocrit 31.7 % (37.0-47.0); Hemoglobin 10.4 g/dl (12.0-16.0); Mean Corpuscular HGB Conc 32.8 g/dl (31.0-35.0); Mean Corpuscular Hemoglobin 29.7 pg (27.0-33.0); Mean Corpuscular Volume 90.6 fL (80.0-98.0); Mean Platelet Volume 10.6 fL (9.4-12.3); Platelet Count 187 X10*3/uL (160-400); Red Cell Distribution Width 12.9 % (11.0-16.0); White Blood Count 5.5 X10*3/uL (4.8-10.8)
[2022-06-01 07:12] LABS: Anion Gap 13 (12-20); Blood Urea Nitrogen 10 mg/dL (9-16); Calcium 9.2 mg/dL (8.4-10.2); Carbon Dioxide 28 mmol/L (22-29); Chloride 105 mmol/L (96-108); Creatinine Clr Calc Pharmacy 137.3; Estimated Glomerular Filt Rate > 60; Glucose Fasting 106 mg/dL (60-99); Sodium 142 mmol/L (135-145)
[2022-06-01] MEDS: Cholecalciferol (Vitamin D3) 25 MCG TABLET PO (08:15)
[2022-06-01] MEDS: Metoprolol Succinate ER 25 MG TAB.ER.24H PO (08:16)
[2022-06-01] MEDS: Escitalopram Oxalate 10 MG TABLET PO (08:16)
[2022-06-01] MEDS: allopurinoL 300 MG TABLET PO (08:16)
[2022-06-01] MEDS: Apixaban 5 MG TABLET PO ×2 (08:16→22:37)
[2022-06-01 08:30] LABS: Glucose, Whole Blood 110 mg/dL (60-115)
[2022-06-01] MEDS: cefTRIAXone sodium 1 GM in 0.9 % Sodium Chloride 50 ML IV (08:30)
[2022-06-01] MEDS: polyethylene glycoL 3350 17 GM POWD.PACK PO (08:30)
--- NOTE | 2022-06-01 10:28 | P.PNIM_ITS ---
Subjective Subjective Date of Service: 06/01/22 Interval History: cc: ams interval history: more alert Review of Systems Review of Systems: Yes Unobtainable due to mental status Physical Exam Vital Signs: Vital Signs: Last Vital Signs Temp 97.9 F 06/01/22 07:53 Pulse 69 06/01/22 07:53 Resp 19 06/01/22 07:53 BP 110/59 L 06/01/22 07:53 Pulse Ox 97 06/01/22 07:53 O2 Del Method 06/01/22 07:53 O2 Flow Rate 2.0 05/30/22 15:46 BMI result Body Mass Index 32.3 General: more alert, not participating in discussion Resp: Crackles at bases bilateral, no accessory muscles used CVS: S1,S2,RRR GI: soft, non tender, non distended Neuro: lethargic, non participatory Psych: appropriate affect, impaired insight Objective Data Active Medications Allopurinol (Allopurinol 300 Mg Tablet) 300 mg PO DAILY [facility] Last Admin: 06/01/22 08:16 Dose: 300 mg Documented By: SURESH Apixaban (Apixaban 5 Mg Tablet) 5 mg PO BID [facility] Last Admin: 06/01/22 08:16 Dose: 5 mg Documented By: SURESH Escitalopram Oxalate (Escitalopram Oxalate 10 Mg Tablet) 10 mg PO DAILY [facility] Last Admin: 06/01/22 08:16 Dose: 10 mg Documented By: SURESH Ceftriaxone Sodium 1 gm/ (Sodium Chloride) 50 mls @ 100 mls/hr IV Q24H [facility] Last Infusion: 06/01/22 09:56 Dose: 0 mls/hr Documented By: SURESH Insulin Human Lispro (Insulin Lispro 100 Unit/Ml 3 Ml Vial) 0 unit SUBCUT QIDAC HS [facility]; Protocol Last Admin: 06/01/22 07:54 Dose: Not Given Documented By: SURESH Non-Admin Reason: No Insulin Coverage Metoprolol Succinate (Metoprolol Succinate Er 25 Mg Tab.Er.24h) 25 mg PO DAILY [facility]; Protocol Last Admin: 06/01/22 08:16 Dose: 25 mg Documented By: SURESH Ondansetron HCl (Ondansetron Odt 4 Mg Tab.Rapdis) 4 mg TRANSLINGU Q8H PRN PRN Reason: Nausea Polyethylene Glycol (Polyethylene Glycol 3350 17 Gm Powd.Pack) 17 gm PO DAILY [facility] Last Admin: 06/01/22 08:30 Dose: 17 gm Documented By: SURESH Sodium Chloride (0.9 % Sodium Chloride Flush 3 Ml Syringe) 3 ml IVFLUSH QSHIFT [facility] Last Admin: 06/01/22 08:30 Dose: 3 ml Documented By: SURESH Vitamin D (Cholecalciferol (Vitamin D3) 25 Mcg Tablet) 25 mcg PO DAILY [facility] Last Admin: 06/01/22 08:15 Dose: 25 mcg Documented By: SURESH Labs CBC & Chem 7: 06/01/22 05:50 06/01/22 05:50 Labs: Laboratory Results - last 24 hr 05/31/22 05/31/22 05/31/22 11:25 15:16 20:23 MCV MCH MCHC RDW Plt Count MPV Absolute Nucleated RBC Nucleated RBC % (auto) Anion Gap Estim Creat Clear Calc Estimated GFR POC Glucose 135 H 116 H 128 H Fasting Glucose Calcium 06/01/22 06/01/22 06/01/22 05:50 05:50 07:49 MCV 90.6 MCH 29.7 MCHC 32.8 RDW 12.9 Plt Count 187 MPV 10.6 Absolute Nucleated RBC 0.000 Nucleated RBC % (auto) 0.0 Anion Gap 13 Estim Creat Clear Calc 137.3 Estimated GFR > 60 POC Glucose 110 Fasting Glucose 106 H Calcium 9.2 Microbiology Microbiology Results: Microbiology 05/29/22 Unknown Urine Culture - Final Urine Catheterized - Snell Catheter Staphylococcus epidermidis Assessment and Plan (1) Acute alteration in mental status: Status: Acute Plan 77 year old female with history of dementia oriented to self at baseline without behavioral disturbance, CHF, insulin depedent type 2 diabetes,? paroxysmal atrial fibrillation on eliquis, gout, hdl, htn, and hx GI bleed brought to the ED from [facility] where she resides to be admitted for complicated UTI with acute change in mental status and urinary retention requiring snell catheter as well as possible pneumonia toxic metabolic encephalopathy multifactorial uti with urinary retention - snell, rocephin, urine growing staph epi holding depakote, if needed for behaviour control will restart at lower dose doubt pneumonia more likely atelectasis, aspiration, from decreased mental status monitor DM inuslin dementia with behaviour abnormalities holding depakote pafib eliquis metoprolol htn metoprolol gout allopurinol dvt prophylaxis - on eliquis DNR/DNI reason for continued hospitalization: mental status not yet at baseline Quality Stroke Does the patient have a stroke diagnosis?: No VTE Prior VTE?: No VTE Risk Level:: Medical - moderate - high VTE Device Contraindication: Treatment Not Indicated VTE Drug Contraindication: N/A - Med Ordered
--- NOTE | 2022-06-01 11:05 | P.DS_ITS ---
DS: Providers Provider Date of Service: 06/01/22 Date of admission: 05/29/22 12:17 Primary care physician: Jia Cohen MD DS: Diagnosis Discharge Diagnosis (1) Acute alteration in mental status: Status: Acute DS: Summary Hospital Course Hospital Course: from initial hpi: 77 year old female with history of dementia oriented to self at baseline without behavioral disturbance, CHF, insulin depedent type 2 diabetes,? paroxysmal atrial fibrillation on eliquis, gout, hdl, htn, and hx GI bleed brought to the ED from [facility] where she resides for evaluation of change in mental status with increased confusion, inability to follow commands, inability to form sentence, and ? of hallucinations. There was also reported to be no urine output at the [facility] during the 3-11 shift and no bladder scanner was available at the facility. In ED, bladder scan showed 657cc retained urine and snell catheter was placed. UA showed 3+ leuks, 4+ bacteria, 1+ blood, 1+ protein, nitrite negative. CBC revealed pancytopenia with WBC 4.7. Lactic acid 0/7/ Glucose 110. Renal function normal. CXR with bilateral streaky/patchy lower lung opacities possibly representing multifocal pneumonia. There is also small b/l pleural effusions. Blood pressure elevated at 171/64, vital signs otherwise stable. She has received a 1g ceftriaxone and 100mg IV doxycycline as well as fluids. hospital course: Patient was admitted for toxic metabolic encephalopathy which was likely m ultifactorial due to urinary tract infection with urinary retention, Snell was inserted she was started on ceftriaxone, urine culture grew Staph epi, patient did well with voiding trial, she will be discharged on 5 more days of Ceftin. Likely also medication component with Depakote, after discontinuing patient became a lot more alert. If need to restart would do alternative medication or lower dose. On admission there was some concern for pneumonia, this was more likely aspiration pneumonitis. for patient's diabetes she was continue on insulin. For dementia with behavior abnormalities Depakote was discontinued and patient's behavior was at baseline. For paroxysmal atrial fibrillation she was continued on Eliquis metoprolol. For hypertension she was continue on metoprolol, lisinopril was held for relative hypotension. This should be monitored and lisinopril restarted if blood pressure is high. For her gout she was continued on her allopurinol. Patient is medically stable and mentally back at her baseline she will be discharged back to [facility] facility. Time Spent with Patient Time attestation: Total time spent providing and/or coordinating discharge services: Discharge coordination time: Greater than 30 minutes Quality: Safe Use of Opioids Does Pt have an Active Cancer Diagnosis on the Problem List?: No Quality: Stroke Does the patient have a stroke diagnosis?: No Physical Exam Vital Signs: Vital Signs: Last Vital Signs Temp 97.9 F 06/01/22 07:53 Pulse 69 06/01/22 07:53 Resp 19 06/01/22 07:53 BP 110/59 L 06/01/22 07:53 Pulse Ox 97 06/01/22 07:53 O2 Del Method 06/01/22 07:53 O2 Flow Rate 2.0 05/30/22 15:46 BMI result Body Mass Index 32.3 General: more alert, not participating in discussion Resp: Crackles at bases bilateral, no accessory muscles used CVS: S1,S2,RRR GI: soft, non tender, non distended Neuro: lethargic, non participatory Psych: appropriate affect, impaired insight DS: Data Data Completed and Pending Labs on day of discharge: Laboratory Results - last 24 hr 05/31/22 05/31/22 05/31/22 11:25 15:16 20:23 WBC RBC Hgb Hct MCV MCH MCHC RDW Plt Count MPV Absolute Nucleated RBC Nucleated RBC % (auto) Sodium Potassium Chloride Carbon Dioxide Anion Gap BUN Creatinine Estim Creat Clear Calc Estimated GFR POC Glucose 135 H 116 H 128 H Fasting Glucose Calcium 06/01/22 06/01/22 06/01/22 05:50 05:50 07:49 WBC 5.5 RBC 3.50 L Hgb 10.4 L Hct 31.7 L MCV 90.6 MCH 29.7 MCHC 32.8 RDW 12.9 Plt Count 187 MPV 10.6 Absolute Nucleated RBC 0.000 Nucleated RBC % (auto) 0.0 Sodium 142 Potassium 4.0 Chloride 105 Carbon Dioxide 28 Anion Gap 13 BUN 10 Creatinine 0.43 L Estim Creat Clear Calc 137.3 Estimated GFR > 60 POC Glucose 110 Fasting Glucose 106 H Calcium 9.2 Preliminary micro results at discharge 05/29/22 02:30 Blood Culture - Preliminary Blood - Venous No growth after 48 hours. 05/29/22 02:30 Blood Culture - Preliminary Blood - Venous No growth after 48 hours. Discharge Plan Discharge Patient Disposition: Xfer SNF Discharge Diagnosis: toxic encephlaopathy, uti Referrals: Jia Cohen MD [Primary Care Provider] - 1 Week Discharge Medications: New cefuroxime axetil 500 mg tablet 500 mg PO BID Qty: 10 0RF Continued acetaminophen 325 mg Tablet 650 mg PO Q4-6H PRN (Reason: Pain, Mild) Rx Instructions: PAIN/FEVER polyethylene glycol 3350 [Miralax] 17 gram/dose Powder 17 g PO DAILY escitalopram oxalate 10 mg tablet 1 tab PO DAILY cholecalciferol (vitamin D3) [Vitamin D3] 25 mcg (1,000 unit) Tablet 25 mcg PO DAILY insulin glargine [Basaglar KwikPen U-100 Insulin] 100 unit/mL (3 mL) insulin pen 30 unit subcut BEDTIME Eliquis 5 mg tablet 1 tab PO BID multivitamin Tablet 1 tab PO DAILY miconazole nitrate 2 % Cream 1 appl TOPICAL BID Rx Instructions: TO RASH ON BUTTOCKS allopurinol 300 mg tablet 1 tab PO DAILY metoprolol succinate 25 mg tablet extended release 24 hr 1 tab PO DAILY nystatin [Nystop] 100,000 unit/gram powder 1 appl topical DAILY Rx Instructions: APPLY UNDER RIGHT BREAST AND KEEP DRY ondansetron HCl 4 mg Tablet 4 mg PO Q8H PRN (Reason: Nausea) Discontinued divalproex 125 mg tablet,delayed release (DR/EC) 125 mg PO TID@0800,1400,2000 lisinopril 2.5 mg tablet 1 tab PO DAILY Discharge Orders: Discharge Order (Routine); Ordered 06/01/22 Ordered By: Colt Santos Diet: Advance to usual diet Activity on Discharge: As tolerated Stand Alone Forms: Patient Portal Discharge page Care Plan Goals: recovery Health Concerns: ams Plan of Treatment: hold depakote for now, if needed for behaviour would try alternative or lower dose, 5 more days ceftin, holding lisinopril for relative hyoptension Assessment: see above
[2022-06-01 11:29] LABS: Glucose, Whole Blood 121 mg/dL (60-115)
[2022-06-01 12:37] LABS: COVID-19 Test Negative (Negative); IDNOW Serial# 9DB6401D
[2022-06-01 15:42] LABS: Glucose, Whole Blood 126 mg/dL (60-115)
[2022-06-01 19:48] LABS: Glucose, Whole Blood 139 mg/dL (60-115)
[2022-06-02] VITALS: BP 132/75; PULSE 88; RESP 17; TEMP 36.8; O2SAT 93
[2022-06-02 04:00] VITALS: BP 140/78; PULSE 72; RESP 17; TEMP 36.6; O2SAT 93
[2022-06-02 07:48] LABS: Glucose, Whole Blood 119 mg/dL (60-115)
[2022-06-02 08:00] VITALS: BP 145/65; PULSE 76; RESP 15; TEMP 36; O2SAT 92
[2022-06-02] MEDS: polyethylene glycoL 3350 17 GM POWD.PACK PO (09:23)
[2022-06-02] MEDS: Apixaban 5 MG TABLET PO (09:24)
[2022-06-02] MEDS: Metoprolol Succinate ER 25 MG TAB.ER.24H PO (09:24)
[2022-06-02] MEDS: Escitalopram Oxalate 10 MG TABLET PO (09:24)
[2022-06-02] MEDS: 0.9 % Sodium Chloride Flush 3 ML SYRINGE IVFLUSH (09:25)
[2022-06-02] MEDS: cefTRIAXone sodium 1 GM in 0.9 % Sodium Chloride 50 ML IV (09:25)
[2022-06-02] MEDS: allopurinoL 300 MG TABLET PO (09:25)
[2022-06-02] MEDS: Cholecalciferol (Vitamin D3) 25 MCG TABLET PO (09:25)
--- NOTE | 2022-06-02 09:44 | PC.NURSE ---
report given to Emiliano Madera RN
--- NOTE | 2022-06-02 10:16 | PC.NURSE ---
sent to [facility] with snell catheter per Tom AGUILAR
--- NOTE | 2022-06-02 10:58 | MHC.CM.PN ---
PT WAS EXPECTED TO DC ON 06/01/22, DAY [facility] NOTIFIED VIA [employer] AND AGREED TO PTS RETURN A VM MESSAGE WAS LEFT FOR PTS INFORMING HIM OF PLAN TO DC REQUEST FOR TRANSPORT WAS SENT TO [facility] HOWEVER THEY INDICATED THEY DID NOT HAVE A CREW AVAILABLE [facility] WAS ABLE TO TRANSPORT THIS MORNING AT 1000 HOURS
== END 2022-06-02 10:16 | disposition skilled nursing facility (03) | DRG 689 ==
LOC: HO.ED 03:47 → HO.EDOVER 12:25 → HO.S3 05-30 04:16
PROVIDERS: Admitting Provider Physician Assistant; Emergency Provider Emergency Medicine Emergency Medical Services; PCP Internal Medicine; Visit Provider Internal Medicine
DX: N39.0 Urinary tract infection, site not specified (principal); G92.8 Other toxic encephalopathy; J69.0 Pneumonitis due to inhalation of food and vomit; J98.11 Atelectasis; Z66 Do not resuscitate; F03.90 Unspecified dementia, unspecified severity, without behavioral disturbance, psychotic disturbance, mood disturbance, and anxiety; E11.9 Type 2 diabetes mellitus without complications; M10.9 Gout, unspecified; R33.9 Retention of urine, unspecified; L89.152 Pressure ulcer of sacral region, stage 2; I11.0 Hypertensive heart disease with heart failure; I50.9 Heart failure, unspecified; B95.7 Other staphylococcus as the cause of diseases classified elsewhere; I48.0 Paroxysmal atrial fibrillation; Z20.822 Contact with and (suspected) exposure to COVID-19; Z88.0 Allergy status to penicillin; Z88.8 Allergy status to other drugs, medicaments and biological substances; Z79.4 Long term (current) use of insulin; Z79.01 Long term (current) use of anticoagulants; Z79.899 Other long term (current) drug therapy
CPT/HCPCS: 36415; 71045; 80048; 80053; 81001; 82947; 83605; 83690; 84484; 85025; 85027; 85610; 85730; 87040; 87086; 87088; 87186; 87635; 93005; 99285; C1758; J0692; J0696

== ENCOUNTER 2022-07-05 23:59 | Inpatient (IN) | payer MEDICARE, SELFPAY ==
--- NOTE | ~2022-07-05 | US_ITS ---
EXAMINATION: US ABDOMEN COMPLETE CLINICAL INFORMATION: Bacteremia, rule out renal obstruction. COMPARISON: CT abdomen and pelvis with contrast 12/10/2020. Ultrasound abdomen complete 01/24/2016. TECHNIQUE: Real-time imaging of the abdominal viscera. Technically very limited study secondary to body habitus, patient mobility and patient behavior. FINDINGS: PANCREAS: The head and body the pancreas are normal. Tail is not well visualized. ABDOMINAL AORTA: Not well visualized. INFERIOR VENA CAVA: Visualized portions are normal. LIVER: The contour of the liver is slightly irregular questionable for changes of mild cirrhosis. Liver echotexture is slightly increased. No focal hepatic lesion. There is no intrahepatic biliary duct dilatation seen. GALLBLADDER: Gallbladder is normal in size. There is mobile echogenic debris or biloma gallbladder. There may be related to an artifact questionable for adenomyomatosis of the gallbladder wall. Gallbladder wall does not appear thickened. No gallstones are seen. COMMON BILE DUCT: Not seen RIGHT KIDNEY: Not well visualized. The right kidney measures 10 cm in length. There is renal cortical thinning. 3 cm cyst in the right kidney seen by CT not appreciated. LEFT KIDNEY: Not well visualized. Left kidney measures 10 cm in length. There may be renal cortical thinning. SPLEEN: Normal. The spleen measures 9.9 cm in maximum dimension. FREE FLUID: None. US/US abdomen complete IMPRESSION: Very limited exam. Kidneys are not well visualized. No stone or obstruction is seen. There may be bilateral renal cortical thinning. Question mild cirrhotic changes of the liver. Echogenic debris in the gallbladder.
[2022-07-06] VITALS (10 sets, daily range): BP systolic 150–199; BP diastolic 68–100; PULSE 87–110; RESP 16–20; TEMP 36.2–38.3; O2SAT 92–99; BMI 28.1
--- NOTE | 2022-07-06 00:26 | ED.GENADULT ---
HPI - General Adult General Chief complaint: Altered Mental Status Stated complaint: sepsis? Time Seen by Provider: 07/06/22 00:12 Source: EMS Mode of arrival: EMS Limitations: altered mental status History of Present Illness HPI narrative: Patient comes to the emergency room from a alf facility. According to the staff, patient has worsening altered mental status. Per EMS and SNF, patient is only responsive to sternal rub. Patient is DNR DNI. Staff from the nursing facility reported to EMS that the patient has been deteriorating for the last couple of weeks. Today, they believe the patient has fever. Related Data Home Medications Medication Instructions Recorded Confirmed acetaminophen 325 mg tablet 650 mg PO Q4-6H PRN Pain, Mild 05/29/22 05/29/22 allopurinol 300 mg tablet 1 tab PO DAILY 05/29/22 05/29/22 apixaban 5 mg tablet (Eliquis) 1 tab PO BID 05/29/22 05/29/22 cholecalciferol (vitamin D3) 25 25 mcg PO DAILY 05/29/22 05/29/22 mcg (1,000 unit) tablet (Vitamin D3) escitalopram oxalate 10 mg tablet 1 tab PO DAILY 05/29/22 05/29/22 insulin glargine 100 unit/mL (3 30 unit subcut BEDTIME 05/29/22 05/29/22 mL) subcutaneous pen (Basaglar KwikPen U-100 Insulin) metoprolol succinate 25 mg 1 tab PO DAILY 05/29/22 05/29/22 tablet,extended release 24 hr miconazole nitrate 2 % topical 1 appl topical BID 05/29/22 05/29/22 cream multivitamin 1 tab PO DAILY 05/29/22 05/29/22 nystatin 100,000 unit/gram topical 1 appl topical DAILY 05/29/22 05/29/22 powder (Nystop) ondansetron HCl 4 mg tablet 4 mg PO Q8H PRN Nausea 05/29/22 05/29/22 polyethylene glycol 3350 17 17 g PO DAILY 05/29/22 05/29/22 gram/dose oral powder (Miralax) Previous Rx's Medication Instructions Recorded cefuroxime axetil 500 mg tablet 500 mg PO BID #10 tabs 06/01/22 Allergies Allergy/AdvReac Type Severity Reaction Status Date / Time Penicillins Allergy Mild UNKNOWN Verified 05/29/22 00:54 erythromycin base Allergy Unknown UNKNOWN Verified 05/29/22 00:54 [ERYTHROMYCIN BASE] flecainide [FLECAINIDE] Allergy Unknown UNKNOWN Verified 05/29/22 00:54 Review of Systems Review of Systems: Yes Unobtainable due to mental condition [facility] Past Medical History Medical History Atrial fibrillation Dementia Diabetes GI bleed Gout High cholesterol Hypertension Family History Family History (Updated 05/29/22 @ 13:36 by ZAK Mcginnis) Mother No problems noted. Father No problems noted. Social History Social History Household Members: Unknown / Unable to assess Housing: Unknown / Unable to assess Do you presently have visiting nurse or other home services: No Unable to assess alcohol history related to: Unknown Alcohol intake: unknown Patient Tobacco Use Status: Refuse Tobacco use screen Second Hand Smoke Exposure: No Advance Directives: Yes Advance Directives on File: Yes Advance Directives Date on File: 06/04/22 service: No Current occupational status: retired Physical Exam ED Vital Signs: Vital Signs - 24 hr 07/06/22 00:20 Temperature 100.9 F H Pulse Rate 102 H Respiratory Rate 18 Blood Pressure 188/75 H Pulse Oximetry 99 Oxygen Delivery Method Nasal Cannula Oxygen Flow Rate 2 BMI result Body Mass Index 28.1 Const Other: Appearance: Awake, alert and oriented x 0 Eyes: Pupils equal, round and reactive to light. ENT: Dry oral mucosa Neck: Normal inspection. Neck supple. No lymph nodes noted. No crepitus CVS: Normal heart rate, irregular rhythm, Pulses normal. Normal S1 and S2 Respiratory: No respiratory distress. Breath sounds normal. No Wheezing. No rales Abdomen: Soft and nontender. No rigidity. No distention. Skin: Skin warm and dry. Normal skin color. Normal skin turgor. Extremities: No lower extremity edema. No Lacerations. No Rash Neuro: Unable to participating cranial nerve assessment Psych: calm Course Course Course Narrative: Patient was discharged from this hospital approximately 1 month ago, per patient's records, her mental status is oriented to self at baseline without behavioral disturbances. Seems that patient was admitted for altered mental status, inability to follow commands and possible hallucinations. Patient was diagnosed with metabolic encephalopathy secondary to urinary tract infection. Patient's urine sensitivities from her prior visit shows that she grew to Staphylococcus epidermis in her urine, likely a contaminant. L3-4, patient is being treated with 2.5 L of normal saline and ceftriaxone. On her discharge last time, patient was sent home with cefuroxime, patient did not have an allergic reaction. Patient given rectal Tylenol. Patient being admitted for UTI encephalopathy Medical Decision Making Lab Data Result diagrams: 07/06/22 00:40 07/06/22 00:40 Labs: Lab Results 07/06/22 07/06/22 07/06/22 Range/Units 00:40 00:40 00:40 WBC 6.6 (4.8-10.8) X10*3/uL RBC 4.06 L (4.20-5.50) X10*6/uL Hgb 10.9 L (12.0-16.0) g/dl Hct 35.2 L (37.0-47.0) % MCV 86.7 (80.0-98.0) fL MCH 26.8 L (27.0-33.0) pg MCHC 31.0 (31.0-35.0) g/dl RDW 14.0 (11.0-16.0) % Plt Count 191 (160-400) X10*3/uL MPV 10.4 (9.4-12.3) fL Immature Gran % (Auto) 0.6 H (0.0-0.4) % Neut % (Auto) 78.6 H (45-73) % Lymph % (Auto) 6.6 L (20-40) % Ellis % (Auto) 13.4 H (2-11) % Eos % (Auto) 0.3 (0-4) % Baso % (Auto) 0.5 (0-2) % Lymph # (Auto) 0.4 L (1.2-4.9) X10*3/uL Ellis # (Auto) 0.9 (0.1-1.2) X10*3/uL Eos # (Auto) 0.0 (0.0-0.4) X10*3/uL Baso # (Auto) 0.0 (0.0-0.2) X10*3/uL Abs Immat Gran (auto) 0.04 H (0.00-0.03) X10*3/uL Absolute Neuts (auto) 5.2 (2.0-8.3) x10*3/uL Absolute Nucleated RBC 0.000 (0.0-0.012) X10*3/uL Nucleated RBC % (auto) 0.0 (0.0-0.2) /100WBC Sodium 149 H (135-145) mmol/L Potassium 3.3 (3.3-5.1) mmol/L Chloride 103 (96-108) mmol/L Carbon Dioxide 36 H (22-29) mmol/L Anion Gap 13 (12-20) BUN 13 (9-16) mg/dL Creatinine 0.54 (0.5-1.4) mg/dL Estim Creat Clear Calc 98.9 Estimated GFR > 60 Random Glucose 218 H (60-115) mg/dL Lactic Acid 0.9 (0.5-2.0) mmol/L Calcium 8.9 (8.4-10.2) mg/dL Total Bilirubin 0.7 (0.0-1.0) mg/dL Direct Bilirubin 0.3 (0.0-0.5) mg/dL AST 19 (5-31) U/L ALT 12 (0-31) U/L Alkaline Phosphatase 64 (39-117) U/L Ammonia (13-55) umol/L Troponin I High Sens (<3.5-17.0) ng/L Total Protein 5.2 L (6.5-8.0) g/dL Albumin 3.1 L (3.5-5.0) g/dL Lipase < 4 L (8-78) U/L TSH (0.32-4.0) uIU/mL Urine Color Urine Appearance Urine pH (5.0-9.0) Ur Specific [place] (1.005-1.025) Urine Protein (Neg-Trace) mg/dL Urine Glucose (UA) (Negative) mg/dL Urine Ketones (Negative) mg/dL Urine Blood (Negative) Urine Nitrite (Negative) Ur Leukocyte Esterase (Negative) Urine RBC (0-2) /HPF Urine WBC (0-5) /HPF Ur Squamous Epith Cells (0-2) /HPF Urine Bacteria (None Seen) Hyaline Casts (0-2) /LPF Urine Yeast COVID-19 (MARIANNA) (Negative) COVID-19 Clin Com 07/06/22 07/06/22 07/06/22 Range/Units 00:40 00:40 00:40 WBC (4.8-10.8) X10*3/uL RBC (4.20-5.50) X10*6/uL Hgb (12.0-16.0) g/dl Hct (37.0-47.0) % MCV (80.0-98.0) fL MCH (27.0-33.0) pg MCHC (31.0-35.0) g/dl RDW (11.0-16.0) % Plt Count (160-400) X10*3/uL MPV (9.4-12.3) fL Immature Gran % (Auto) (0.0-0.4) % Neut % (Auto) (45-73) % Lymph % (Auto) (20-40) % Ellis % (Auto) (2-11) % Eos % (Auto) (0-4) % Baso % (Auto) (0-2) % Lymph # (Auto) (1.2-4.9) X10*3/uL Ellis # (Auto) (0.1-1.2) X10*3/uL Eos # (Auto) (0.0-0.4) X10*3/uL Baso # (Auto) (0.0-0.2) X10*3/uL Abs Immat Gran (auto) (0.00-0.03) X10*3/uL Absolute Neuts (auto) (2.0-8.3) x10*3/uL Absolute Nucleated RBC (0.0-0.012) X10*3/uL Nucleated RBC % (auto) (0.0-0.2) /100WBC Sodium (135-145) mmol/L Potassium (3.3-5.1) mmol/L Chloride (96-108) mmol/L Carbon Dioxide (22-29) mmol/L Anion Gap (12-20) BUN (9-16) mg/dL Creatinine (0.5-1.4) mg/dL Estim Creat Clear Calc Estimated GFR Random Glucose (60-115) mg/dL Lactic Acid (0.5-2.0) mmol/L Calcium (8.4-10.2) mg/dL Total Bilirubin (0.0-1.0) mg/dL Direct Bilirubin (0.0-0.5) mg/dL AST (5-31) U/L ALT (0-31) U/L Alkaline Phosphatase (39-117) U/L Ammonia 31 (13-55) umol/L Troponin I High Sens 38.0 H D (<3.5-17.0) ng/L Total Protein (6.5-8.0) g/dL Albumin (3.5-5.0) g/dL Lipase (8-78) U/L TSH (0.32-4.0) uIU/mL Urine Color Urine Appearance Urine pH (5.0-9.0) Ur Specific [place] (1.005-1.025) Urine Protein (Neg-Trace) mg/dL Urine Glucose (UA) (Negative) mg/dL Urine Ketones (Negative) mg/dL Urine Blood (Negative) Urine Nitrite (Negative) Ur Leukocyte Esterase (Negative) Urine RBC (0-2) /HPF Urine WBC (0-5) /HPF Ur Squamous Epith Cells (0-2) /HPF Urine Bacteria (None Seen) Hyaline Casts (0-2) /LPF Urine Yeast COVID-19 (MARIANNA) Negative (Negative) COVID-19 Clin Com See Note 07/06/22 07/06/22 Range/Units 00:40 01:11 WBC (4.8-10.8) X10*3/uL RBC (4.20-5.50) X10*6/uL Hgb (12.0-16.0) g/dl Hct (37.0-47.0) % MCV (80.0-98.0) fL MCH (27.0-33.0) pg MCHC (31.0-35.0) g/dl RDW (11.0-16.0) % Plt Count (160-400) X10*3/uL MPV (9.4-12.3) fL Immature Gran % (Auto) (0.0-0.4) % Neut % (Auto) (45-73) % Lymph % (Auto) (20-40) % Ellis % (Auto) (2-11) % Eos % (Auto) (0-4) % Baso % (Auto) (0-2) % Lymph # (Auto) (1.2-4.9) X10*3/uL Ellis # (Auto) (0.1-1.2) X10*3/uL Eos # (Auto) (0.0-0.4) X10*3/uL Baso # (Auto) (0.0-0.2) X10*3/uL Abs Immat Gran (auto) (0.00-0.03) X10*3/uL Absolute Neuts (auto) (2.0-8.3) x10*3/uL Absolute Nucleated RBC (0.0-0.012) X10*3/uL Nucleated RBC % (auto) (0.0-0.2) /100WBC Sodium (135-145) mmol/L Potassium (3.3-5.1) mmol/L Chloride (96-108) mmol/L Carbon Dioxide (22-29) mmol/L Anion Gap (12-20) BUN (9-16) mg/dL Creatinine (0.5-1.4) mg/dL Estim Creat Clear Calc Estimated GFR Random Glucose (60-115) mg/dL Lactic Acid (0.5-2.0) mmol/L Calcium (8.4-10.2) mg/dL Total Bilirubin (0.0-1.0) mg/dL Direct Bilirubin (0.0-0.5) mg/dL AST (5-31) U/L ALT (0-31) U/L Alkaline Phosphatase (39-117) U/L Ammonia (13-55) umol/L Troponin I High Sens (<3.5-17.0) ng/L Total Protein (6.5-8.0) g/dL Albumin (3.5-5.0) g/dL Lipase (8-78) U/L TSH 0.37 (0.32-4.0) uIU/mL Urine Color Yellow Urine Appearance Turbid Urine pH 6.0 (5.0-9.0) Ur Specific [place] 1.015 (1.005-1.025) Urine Protein 300 (3+) H (Neg-Trace) mg/dL Urine Glucose (UA) Negative (Negative) mg/dL Urine Ketones Negative (Negative) mg/dL Urine Blood Large (3+) H (Negative) Urine Nitrite Positive H (Negative) Ur Leukocyte Esterase Large (3+) H (Negative) Urine RBC >20 H (0-2) /HPF Urine WBC >50 H (0-5) /HPF Ur Squamous Epith Cells 3-5 (0-2) /HPF Urine Bacteria 4+ (None Seen) Hyaline Casts 3-5 (0-2) /LPF Urine Yeast Present COVID-19 (MARIANNA) (Negative) COVID-19 Clin Com Discharge Plan Discharge Clinical Impression: Acute UTI, Encephalopathy Patient Disposition: Admitted As Inpatient Prescriptions: No Action acetaminophen 325 mg Tablet 650 mg PO Q4-6H PRN (Reason: Pain, Mild) Rx Instructions: PAIN/FEVER polyethylene glycol 3350 [Miralax] 17 gram/dose Powder 17 g PO DAILY escitalopram oxalate 10 mg tablet 1 tab PO DAILY cholecalciferol (vitamin D3) [Vitamin D3] 25 mcg (1,000 unit) Tablet 25 mcg PO DAILY insulin glargine [Basaglar KwikPen U-100 Insulin] 100 unit/mL (3 mL) insulin pen 30 unit subcut BEDTIME Eliquis 5 mg tablet 1 tab PO BID multivitamin Tablet 1 tab PO DAILY miconazole nitrate 2 % Cream 1 appl TOPICAL BID Rx Instructions: TO RASH ON BUTTOCKS allopurinol 300 mg tablet 1 tab PO DAILY metoprolol succinate 25 mg tablet extended release 24 hr 1 tab PO DAILY nystatin [Nystop] 100,000 unit/gram powder 1 appl topical DAILY Rx Instructions: APPLY UNDER RIGHT BREAST AND KEEP DRY ondansetron HCl 4 mg Tablet 4 mg PO Q8H PRN (Reason: Nausea) cefuroxime axetil 500 mg tablet 500 mg PO BID Qty: 10 0RF
[2022-07-06 00:47] LABS: Basophils Percent Auto 0.5 % (0-2); Eosinophils Percent Auto 0.3 % (0-4); Hematocrit 35.2 % (37.0-47.0); Hemoglobin 10.9 g/dl (12.0-16.0); Imm Gran Abs Auto 0.04 X10*3/uL (0.00-0.03); Imm Gran Pct Auto 0.6 % (0.0-0.4); Lymphocytes Absolute Auto 0.4 X10*3/uL (1.2-4.9); Lymphocytes Percent Auto 6.6 % (20-40); MANUAL DIFF FLAG NO; Mean Corpuscular Hemoglobin 26.8 pg (27.0-33.0); Mean Corpuscular Volume 86.7 fL (80.0-98.0); Mean Platelet Volume 10.4 fL (9.4-12.3); Monocytes Absolute Auto 0.9 X10*3/uL (0.1-1.2); Monocytes Percent Auto 13.4 % (2-11); Neutrophils Absolute Auto 5.2 x10*3/uL (2.0-8.3); Neutrophils Percent Auto 78.6 % (45-73); Platelet Count 191 X10*3/uL (160-400); Red Blood Count 4.06 X10*6/uL (4.20-5.50); White Blood Count 6.6 X10*3/uL (4.8-10.8)
[2022-07-06 00:54] LABS: Ammonia 31 umol/L (13-55)
[2022-07-06 00:57] LABS: Lactic Acid 0.9 mmol/L (0.5-2.0)
[2022-07-06] MEDS: cefTRIAXone sodium 1 GM in 0.9 % Sodium Chloride 50 ML IV (01:00)
[2022-07-06 01:02] LABS: COVID-19 Test Negative (Negative)
[2022-07-06 01:13] LABS: Alanine Aminotransferase 12 U/L (0-31); Albumin Level 3.1 g/dL (3.5-5.0); Alkaline Phosphatase 64 U/L (39-117); Anion Gap 13 (12-20); Aspartate Amino Transferase 19 U/L (5-31); Bilirubin Direct 0.3 mg/dL (0.0-0.5); Bilirubin Total 0.7 mg/dL (0.0-1.0); Blood Urea Nitrogen 13 mg/dL (9-16); Calcium 8.9 mg/dL (8.4-10.2); Carbon Dioxide 36 mmol/L (22-29); Chloride 103 mmol/L (96-108); Creatinine Clr Calc Pharmacy 98.9; Estimated Glomerular Filt Rate > 60; Glucose Random 218 mg/dL (60-115); Lipase < 4 U/L (8-78); Potassium 3.3 mmol/L (3.3-5.1); Sodium 149 mmol/L (135-145); Total Protein 5.2 g/dL (6.5-8.0)
[2022-07-06 01:23] LABS: Appearance Urine Turbid; Color Urine Yellow; Glucose Urine UA Negative (Negative); Leukocyte Esterase Urine Large (3+) (Negative); Nitrite Urine Positive (Negative); Specific Gravity - Urine 1.015 (1.005-1.025); UMIC TRIGGER UACC YES; Urine Blood Large (3+) (Negative); Urine Ketones Negative (Negative); Urine Protein 300 (3+) mg/dL (Neg-Trace)
[2022-07-06] MEDS: 0.9 % Sodium Chloride 2,500 ML 999 ML IVCONT (01:24)
[2022-07-06 01:26] LABS: TSH reflex Free T4 0.37 uIU/mL (0.32-4.0)
[2022-07-06 01:31] LABS: Bacteria Urine 4+ (None Seen); RBC Urine >20 /HPF (0-2); UACC Culture Trigger YES; WBC Urine >50 /HPF (0-5)
--- NOTE | 2022-07-06 02:03 | PC.NURSE ---
PT given franklin care soiled with BM. PT REPOSITIONED TO BACK AND PUREWICK APPLIED FOR INCONTINENCE
--- NOTE | 2022-07-06 05:49 | PM.IMHP ---
History of Present Illness Date of Service: 07/06/22 Chief Complaint: Altered mentation 77-year-old female with history of AFib, dementia, diabetes, history of GI bleed, HLD, HTN comes into the hospital from shelter facility for worsening altered mental status. Patient initially was only responsive to sternal rub,Staff from the nursing facility reported to EMS that the patient has been deteriorating for the last couple of weeks. Patient currently is awake, not tracking with her eyes, not following command, not answer questions appropriately. I am unable to obtain review of system is patient is not responding to any my questions On arrival to the ED patient found to have a temp of a 100.9 degrees, heart rate of 102, blood pressure 188/75 Labs are significant for WBC count of 6.6, sodium a 149, troponin of 38, albumin 3.1, UA that is positive for nitrites, leukocyte Estrace, WBC, Chest x-ray shows increasing bibasilar opacities with possible small pleural effusion, reflecting possible pulmonary edema Review of Systems Review of Systems: Yes Unobtainable due to mental status [facility] Medical History Atrial fibrillation Dementia Diabetes GI bleed Gout High cholesterol Hypertension Family History Mother No problems noted. Father No problems noted. Social History Household Members: Unknown / Unable to assess Housing: Unknown / Unable to assess Do you presently have visiting nurse or other home services: No Unable to assess alcohol history related to: Unknown Alcohol intake: unknown Patient Tobacco Use Status: Refuse Tobacco use screen Second Hand Smoke Exposure: No Advance Directives: Yes Advance Directives on File: Yes Advance Directives Date on File: 06/04/22 service: No Current occupational status: retired Meds Allergies Allergy/AdvReac Type Severity Reaction Status Date / Time Penicillins Allergy Mild UNKNOWN Verified 05/29/22 00:54 erythromycin base Allergy Unknown UNKNOWN Verified 05/29/22 00:54 [ERYTHROMYCIN BASE] flecainide [FLECAINIDE] Allergy Unknown UNKNOWN Verified 05/29/22 00:54 Active Medications: Current Medications Acetaminophen (Acetaminophen 325 Mg Tablet) 650 mg PO Q6H PRN PRN Reason: Pain, Mild (Pain Scale 1-3) Allopurinol (Allopurinol 300 Mg Tablet) 300 mg PO DAILY [facility] Apixaban (Apixaban 5 Mg Tablet) 5 mg PO BID [facility] Dextrose (Dextrose 50 % 25 Gm/50 Ml Syringe) 25 gm IVPUSH Q15M PRN; Protocol PRN Reason: per Hypoglycemia Standing Ord. Docusate Sodium (Docusate Sodium 100 Mg Capsule) 100 mg PO DAILY PRN PRN Reason: Constipation Escitalopram Oxalate (Escitalopram Oxalate 10 Mg Tablet) 10 mg PO DAILY [facility] Glucose (Glucose Gel 15 Gm Gel..Gram.) 15 gm PO Q15M PRN; Protocol PRN Reason: per Hypoglycemia Standing Ord. Ceftriaxone Sodium 1 gm/ (Sodium Chloride) 50 mls @ 100 mls/hr IV Q24H [facility] Insulin Glargine (Insulin Glargine,Hum.Rec.Anlog 100 Unit/Ml 10 Ml Vial) 30 unit SUBCUT BEDTIME [facility] Insulin Human Lispro (Insulin Lispro 100 Unit/Ml 3 Ml Vial) 0.1 - 10 unit SUBCUT QIDACHS [facility]; Protocol Metoprolol Succinate (Metoprolol Succinate Er 25 Mg Tab.Er.24h) 25 mg PO DAILY [facility]; Protocol Multivitamins/Vitamin C (Multivitamin Tablet) 1 tab PO DAILY [facility] Nystatin (Nystatin Powder 15 Gm Bottle) 1 appl TOPICAL DAILY [facility]; Protocol Ondansetron HCl (Ondansetron Hcl 4 Mg/2 Ml Vial) 4 mg IVPUSH Q8H PRN PRN Reason: Nausea and Vomiting Polyethylene Glycol (Polyethylene Glycol 3350 17 Gm Powd.Pack) 17 gm PO DAILY [facility] Sodium Chloride (0.9 % Sodium Chloride Flush 3 Ml Syringe) 3 ml IVFLUSH QSHIFT [facility] Home Medications Medication Instructions Recorded Confirmed Last Taken Type acetaminophen 325 mg tablet 650 mg PO Q4-6H PRN Pain, Mild 05/29/22 07/06/22 Unknown History allopurinol 300 mg tablet 1 tab PO DAILY 05/29/22 07/06/22 Unknown History apixaban 5 mg tablet (Eliquis) 1 tab PO BID 05/29/22 07/06/22 Unknown History cholecalciferol (vitamin D3) 25 25 mcg PO DAILY 05/29/22 07/06/22 Unknown History mcg (1,000 unit) tablet (Vitamin D3) escitalopram oxalate 10 mg tablet 1 tab PO DAILY 05/29/22 07/06/22 Unknown History insulin glargine 100 unit/mL (3 30 unit subcut BEDTIME 05/29/22 07/06/22 Unknown History mL) subcutaneous pen (Basaglar KwikPen U-100 Insulin) metoprolol succinate 25 mg 1 tab PO DAILY 05/29/22 07/06/22 Unknown History tablet,extended release 24 hr miconazole nitrate 2 % topical 1 appl topical BID 05/29/22 05/29/22 Unknown History cream multivitamin 1 tab PO DAILY 05/29/22 07/06/22 Unknown History nystatin 100,000 unit/gram topical 1 appl topical DAILY 05/29/22 07/06/22 Unknown History powder (Nystop) ondansetron HCl 4 mg tablet 4 mg PO Q8H PRN Nausea 05/29/22 07/06/22 Unknown History polyethylene glycol 3350 17 17 g PO DAILY 05/29/22 07/06/22 Unknown History gram/dose oral powder (Miralax) Physical Exam Vital Signs and Narrative: Vital Signs: Last Vital Signs Temp 99.4 F 07/06/22 05:37 Pulse 88 07/06/22 05:37 Resp 16 07/06/22 05:37 BP 199/83 H 07/06/22 05:37 Pulse Ox 95 07/06/22 05:37 O2 Del Method 07/06/22 05:37 O2 Flow Rate 2 07/06/22 05:37 BMI result Body Mass Index 28.1 Const: Other: Awake, alert, but not responding to any of my questions, not tracking with her eyes General: cooperative and no acute distress Eyes: General: appearance normal, both eyes and all related structures Pupils: Equal, round and reactive pupils present Resp: Effort & Inspection: normal respiratory effort Cardio: Rate: regular rate Rhythm: regular rhythm GI: Palpation (GI): Soft to palpation Auscultation: normal bowel sounds Skin: General skin exam: no rashes or lesions noted Neuro: Cranial nerves: Yes Equal, round and reactive pupils present Cognition (Neuro): normal cognition Extrem: General: Yes normal to inspection and Yes no pedal edema Results Labs CBC and Chem 7: 07/06/22 00:40 07/06/22 00:40 Labs: Laboratory Results - last 24 hr 07/06/22 07/06/22 07/06/22 00:40 00:40 00:40 MCV 86.7 MCH 26.8 L MCHC 31.0 RDW 14.0 Plt Count 191 MPV 10.4 Immature Gran % (Auto) 0.6 H Neut % (Auto) 78.6 H Lymph % (Auto) 6.6 L [place] % (Auto) 13.4 H Eos % (Auto) 0.3 Baso % (Auto) 0.5 Lymph # (Auto) 0.4 L [place] # (Auto) 0.9 Eos # (Auto) 0.0 Baso # (Auto) 0.0 Abs Immat Gran (auto) 0.04 H Absolute Neuts (auto) 5.2 Absolute Nucleated RBC 0.000 Nucleated RBC % (auto) 0.0 Anion Gap 13 Estim Creat Clear Calc 98.9 Estimated GFR > 60 Random Glucose 218 H Lactic Acid 0.9 Calcium 8.9 Total Bilirubin 0.7 Direct Bilirubin 0.3 AST 19 ALT 12 Alkaline Phosphatase 64 Ammonia Troponin I High Sens Total Protein 5.2 L Albumin 3.1 L Lipase < 4 L TSH Urine Color Urine Appearance Urine pH Ur Specific [place] Urine Protein Urine Glucose (UA) Urine Ketones Urine Blood Urine Nitrite Ur Leukocyte Esterase Urine RBC Urine WBC Ur Squamous Epith Cells Urine Bacteria Hyaline Casts Urine Yeast COVID-19 (MARIANNA) COVID-19 Clin Com 07/06/22 07/06/22 07/06/22 00:40 00:40 00:40 MCV MCH MCHC RDW Plt Count MPV Immature Gran % (Auto) Neut % (Auto) Lymph % (Auto) [place] % (Auto) Eos % (Auto) Baso % (Auto) Lymph # (Auto) [place] # (Auto) Eos # (Auto) Baso # (Auto) Abs Immat Gran (auto) Absolute Neuts (auto) Absolute Nucleated RBC Nucleated RBC % (auto) Anion Gap Estim Creat Clear Calc Estimated GFR Random Glucose Lactic Acid Calcium Total Bilirubin Direct Bilirubin AST ALT Alkaline Phosphatase Ammonia 31 Troponin I High Sens 38.0 H D Total Protein Albumin Lipase TSH Urine Color Urine Appearance Urine pH Ur Specific [place] Urine Protein Urine Glucose (UA) Urine Ketones Urine Blood Urine Nitrite Ur Leukocyte Esterase Urine RBC Urine WBC Ur Squamous Epith Cells Urine Bacteria Hyaline Casts Urine Yeast COVID-19 (MARIANNA) Negative COVID-19 Clin Com See Note 07/06/22 07/06/22 00:40 01:11 MCV MCH MCHC RDW Plt Count MPV Immature Gran % (Auto) Neut % (Auto) Lymph % (Auto) [place] % (Auto) Eos % (Auto) Baso % (Auto) Lymph # (Auto) [place] # (Auto) Eos # (Auto) Baso # (Auto) Abs Immat Gran (auto) Absolute Neuts (auto) Absolute Nucleated RBC Nucleated RBC % (auto) Anion Gap Estim Creat Clear Calc Estimated GFR Random Glucose Lactic Acid Calcium Total Bilirubin Direct Bilirubin AST ALT Alkaline Phosphatase Ammonia Troponin I High Sens Total Protein Albumin Lipase TSH 0.37 Urine Color Yellow Urine Appearance Turbid Urine pH 6.0 Ur Specific [place] 1.015 Urine Protein 300 (3+) H Urine Glucose (UA) Negative Urine Ketones Negative Urine Blood Large (3+) H Urine Nitrite Positive H Ur Leukocyte Esterase Large (3+) H Urine RBC >20 H Urine WBC >50 H Ur Squamous Epith Cells 3-5 Urine Bacteria 4+ Hyaline Casts 3-5 Urine Yeast Present COVID-19 (MARIANNA) COVID-19 Clin Com Imaging Radiologist's Impressions: Impressions Chest X-Ray 07/06/22 00:50 IMPRESSION: Increasing bibasilar opacities with possible small pleural effusions. Prominence of the central vasculature and surrounding interstitium is also noted, and overall appearance may therefore reflect pulmonary edema. Assessment and Plan (1) Encephalopathy: Status: Acute (2) Sepsis: Status: Acute (3) Acute UTI: Status: Acute (4) Pulmonary congestion: Status: Acute (5) Hypertensive crisis: Status: Acute Plan 77-year-old female with a history of underlying dementia presents the hospital with worsening altered mental status Of note she was admitted and discharged from the hospital in May for the same at that time found to have Staph epidermidis # encephalopathy - likely secondary to toxic metabolic encephalopathy in the setting of acute UTI - will treat underlying UTI with IV antibiotics - follow mentation - will obtain has CT # sepsis - secondary to UTI - has tachycardia, fever, no leukocytosis - will treat with IV antibiotics - IV fluids - follow cultures # acute UTI - Of note she was admitted and discharged from the hospital in May for the same at that time found to have Staph epidermidis - she was discharged on Ceftin June 25 - will treat with IV ceftriaxone - follow cultures # hypertensive crisis - has significantly elevated blood pressure - will give hydralazine p.r.n., as p.o. may not be possible at the starting given her encephalopathy - follow BMP # diabetes - continue home insulin - will add low-dose sliding scale insulin - diabetic diet DVT prophylaxis: Eliquis(home med) Pt will require a minimum 2 night hospital stay for IV antibiotics, and management of sepsis as well as encephalopathy Quality Stroke Does the patient have a stroke diagnosis?: No VTE Prior VTE?: No VTE Risk Level:: Medical - moderate - high VTE Device Contraindication: Treatment Not Indicated VTE Drug Contraindication: N/A - Med Ordered
[2022-07-06] MEDS: hydrALAZINE HCl 20 MG/ML VIAL 5 MG IVPUSH (06:22)
[2022-07-06] MEDS: Lactated Ringers 1,000 ML 100 ML IVCONT (06:29)
--- NOTE | 2022-07-06 06:31 | PC.NURSE ---
hospitalist aware of high BPs - 5mg hydralazine IV given.
[2022-07-06 06:57] LABS: MANUAL DIFF FLAG NO
[2022-07-06 07:16] LABS: Basophils Percent Auto 0.5 % (0-2); Eosinophils Percent Auto 0.5 % (0-4); Hematocrit 38.7 % (37.0-47.0); Hemoglobin 11.5 g/dl (12.0-16.0); Imm Gran Abs Auto 0.04 X10*3/uL (0.00-0.03); Imm Gran Pct Auto 0.6 % (0.0-0.4); Lymphocytes Absolute Auto 0.5 X10*3/uL (1.2-4.9); Lymphocytes Percent Auto 7.7 % (20-40); Mean Corpuscular HGB Conc 29.7 g/dl (31.0-35.0); Mean Corpuscular Hemoglobin 26.3 pg (27.0-33.0); Mean Corpuscular Volume 88.6 fL (80.0-98.0); Mean Platelet Volume 10.1 fL (9.4-12.3); Monocytes Percent Auto 14.8 % (2-11); Neutrophils Percent Auto 75.9 % (45-73); Platelet Count 176 X10*3/uL (160-400); Red Blood Count 4.37 X10*6/uL (4.20-5.50); White Blood Count 6.6 X10*3/uL (4.8-10.8)
[2022-07-06 07:25] LABS: B Type Natriuretic Peptide 210 pg/mL (<100); Troponin-I High Sensitivity 31.4 ng/L (<3.5-17.0)
[2022-07-06 07:30] LABS: Glucose, Whole Blood 190 mg/dL (60-115)
[2022-07-06 07:41] LABS: Anion Gap 14 (12-20); Blood Urea Nitrogen 12 mg/dL (9-16); Calcium 8.5 mg/dL (8.4-10.2); Carbon Dioxide 32 mmol/L (22-29); Chloride 107 mmol/L (96-108); Estimated Glomerular Filt Rate > 60; Glucose Random 200 mg/dL (60-115); Potassium 3.3 mmol/L (3.3-5.1); Sodium 150 mmol/L (135-145)
--- NOTE | 2022-07-06 08:18 | PM.EVENT ---
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 Seen and examined again-staff has checked with the residential patient mental status shaw seems to be near baseline. Physical exam: Unchanged from h&P Assessment and plan coordinated in H&P note. In addition: Hypernatremia: Will start half normal saline and monitor sodium Encourage for p.o. hydration Hold diuretics So far euvolemic unconteolled htn ,blood pressure improving: Metoprolol adjusted need for inpatient : in addition to h&P-hyponatremia management .
[2022-07-06] MEDS: Sodium Chloride 0.45 % 1,000 ML 80 ML IVCONT (09:42)
[2022-07-06] MEDS: Multivitamin TABLET 1 TAB PO (11:05)
[2022-07-06] MEDS: Apixaban 5 MG TABLET PO ×2 (11:06→20:09)
[2022-07-06] MEDS: allopurinoL 300 MG TABLET PO (11:06)
[2022-07-06] MEDS: Metoprolol Succinate ER 50 MG TAB.ER.24H PO (11:06)
[2022-07-06] MEDS: polyethylene glycoL 3350 17 GM POWD.PACK PO (11:06)
[2022-07-06] MEDS: Escitalopram Oxalate 10 MG TABLET PO (11:06)
--- NOTE | 2022-07-06 11:06 | MHC.CM.PN ---
Patient comes from STR at [facility]. CM will follow to determine PT's recommendation for dc. IMM mailed to Patient's /HCP/Francisco.
--- NOTE | 2022-07-06 13:06 | PHA.MEDREC ---
Pharmacy Consult ? Medication Reconciliation Pharmacy has completed the medication reconciliation. LIST FROM [facility]
[2022-07-06 13:38] LABS: Sodium 149 mmol/L (135-145)
--- NOTE | 2022-07-06 15:24 | PC.NURSE ---
elle given to ms zev.
[2022-07-06] MEDS: amLODIPine Besylate 2.5 MG TABLET PO (18:44)
[2022-07-06 19:40] LABS: Anion Gap 13 (12-20); Blood Urea Nitrogen 13 mg/dL (9-16); Calcium 8.9 mg/dL (8.4-10.2); Carbon Dioxide 33 mmol/L (22-29); Chloride 106 mmol/L (96-108); Creatinine Clr Calc Pharmacy 98.9; Estimated Glomerular Filt Rate > 60; Glucose Random 229 mg/dL (60-115); Potassium 3.1 mmol/L (3.3-5.1); Sodium 149 mmol/L (135-145)
[2022-07-06] MEDS: Insulin Lispro 100 UNIT/ML 3 ML VIAL SUBCUT (20:15)
[2022-07-06] MEDS: 0.9 % Sodium Chloride Flush 3 ML SYRINGE IVFLUSH (20:16)
[2022-07-07] VITALS (9 sets, daily range): BP systolic 114–170; BP diastolic 66–94; PULSE 75–99; RESP 16–19; TEMP 36.6–37.1; O2SAT 93–99
[2022-07-07] MEDS: cefTRIAXone sodium 1 GM in 0.9 % Sodium Chloride 50 ML IV (05:21)
[2022-07-07] MEDS: polyethylene glycoL 3350 17 GM POWD.PACK PO (09:27)
[2022-07-07] MEDS: Metoprolol Succinate ER 50 MG TAB.ER.24H PO (09:27)
[2022-07-07] MEDS: Apixaban 5 MG TABLET PO ×2 (09:27→21:06)
[2022-07-07] MEDS: Nystatin Powder 15 GM BOTTLE 1 APPL TOPICAL (09:27)
[2022-07-07] MEDS: Bacitracin Oint 14 GM TUBE 1 APPL TOPICAL (09:27)
[2022-07-07] MEDS: allopurinoL 300 MG TABLET PO (09:27)
[2022-07-07] MEDS: Mineral Oil/Petrolatum,White 106 GM Tube 1 APPL TOPICAL ×2 (09:27→21:07)
[2022-07-07] MEDS: Multivitamin TABLET 1 TAB PO (09:27)
[2022-07-07] MEDS: 0.9 % Sodium Chloride Flush 3 ML SYRINGE IVFLUSH ×2 (09:28→15:36)
[2022-07-07] MEDS: Escitalopram Oxalate 10 MG TABLET PO (09:33)
--- NOTE | 2022-07-07 13:52 | HO.PM.IMPN ---
Subjective Subjective Date of Service: 07/07/22 Interval History: toxic metabolic encephalopathy, uti ,gram neg bacteremia Review of Systems Mental status seems similar to yesterday. Moves arms and legs Physical Exam Vital Signs: Vital Signs: Last Vital Signs Temp 98.8 F 07/07/22 12:00 Pulse 75 07/07/22 12:00 Resp 17 07/07/22 12:00 BP 140/80 H 07/07/22 12:59 Pulse Ox 95 07/07/22 12:00 O2 Del Method 07/07/22 12:00 O2 Flow Rate 1.5 07/07/22 12:00 BMI result Body Mass Index 28.1 Appearance: awake ,not in distress.?. cvs: rrr, [id number] . res: clear to auscultation ,no rhonchii or wheezing abd: no rebound or guarding ,nt, bs present. ext pulses present , no cyanosis . neuro: nonfocal. Objective Data Active Medications Acetaminophen (Acetaminophen 325 Mg Tablet) 650 mg PO Q6H PRN PRN Reason: Pain, Mild (Pain Scale 1-3) Allopurinol (Allopurinol 300 Mg Tablet) 300 mg PO DAILY [facility] Last Admin: 07/07/22 09:27 Dose: 300 mg Documented By: AGUILAR Apixaban (Apixaban 5 Mg Tablet) 5 mg PO BID [facility] Last Admin: 07/07/22 09:27 Dose: 5 mg Documented By: AGUILAR Bacitracin (Bacitracin Oint 14 Gm Tube) 1 appl TOPICAL DAILY@10 [facility]; Protocol Last Admin: 07/07/22 09:27 Dose: 1 appl Documented By: AGUILAR Dextrose (Dextrose 50 % 25 Gm/50 Ml Syringe) 25 gm IVPUSH Q15M PRN; Protocol PRN Reason: per Hypoglycemia Standing Ord. Dextrose (Dextrose 50 % 25 Gm/50 Ml Syringe) 25 gm IVPUSH Q15M PRN; Protocol PRN Reason: per Hypoglycemia Standing Ord. Docusate Sodium (Docusate Sodium 100 Mg Capsule) 100 mg PO DAILY PRN PRN Reason: Constipation Escitalopram Oxalate (Escitalopram Oxalate 10 Mg Tablet) 10 mg PO DAILY [facility] Last Admin: 07/07/22 09:33 Dose: 10 mg Documented By: AGUILAR Glucose (Glucose Gel 15 Gm Gel..Gram.) 15 gm PO Q15M PRN; Protocol PRN Reason: per Hypoglycemia Standing Ord. Glucose (Glucose Gel 15 Gm Gel..Gram.) 15 gm PO Q15M PRN; Protocol PRN Reason: per Hypoglycemia Standing Ord. Ceftriaxone Sodium 1 gm/ (Sodium Chloride) 50 mls @ 100 mls/hr IV Q24H [facility] Last Infusion: 07/07/22 05:59 Dose: 0 mls/hr Documented By: SID Insulin Human Lispro (Insulin Lispro 100 Unit/Ml 3 Ml Vial) 0 unit SUBCUT QIDACHS [facility]; Protocol Last Admin: 07/07/22 11:44 Dose: Not Given Documented By: AGUILAR Non-Admin Reason: No Insulin Coverage Metoprolol Succinate (Metoprolol Succinate Er 50 Mg Tab.Er.24h) 50 mg PO DAILY [facility]; Protocol Last Admin: 07/07/22 09:27 Dose: 50 mg Documented By: AGUILAR Multi-Ingred Cream/Lotion/Oil/Oint (Mineral Oil/Petrolatum,White 106 Gm Tube) 1 appl TOPICAL BID [facility] Last Admin: 07/07/22 09:27 Dose: 1 appl Documented By: AGUILAR Multivitamins/Vitamin C (Multivitamin Tablet) 1 tab PO DAILY [facility] Last Admin: 07/07/22 09:27 Dose: 1 tab Documented By: AGUILAR Nystatin (Nystatin Powder 15 Gm Bottle) 1 appl TOPICAL DAILY [facility]; Protocol Last Admin: 07/07/22 09:27 Dose: 1 appl Documented By: AGUILAR Ondansetron HCl (Ondansetron Hcl 4 Mg/2 Ml Vial) 4 mg IVPUSH Q8H PRN PRN Reason: Nausea and Vomiting Polyethylene Glycol (Polyethylene Glycol 3350 17 Gm Powd.Pack) 17 gm PO DAILY [facility] Last Admin: 07/07/22 09:27 Dose: 17 gm Documented By: AGUILAR Sodium Chloride (0.9 % Sodium Chloride Flush 3 Ml Syringe) 3 ml IVFLUSH QSHIFT [facility] Last Admin: 07/07/22 09:28 Dose: 3 ml Documented By: AGUILAR Labs CBC & Chem 7: 07/06/22 06:17 07/06/22 19:13 Labs: Laboratory Results - last 24 hr 07/06/22 07/06/22 07/06/22 16:29 19:13 19:46 Anion Gap 13 Estim Creat Clear Calc 98.9 Estimated GFR > 60 POC Glucose 172 H 219 H Random Glucose 229 H Calcium 8.9 07/07/22 07/07/22 07:18 11:27 Anion Gap Estim Creat Clear Calc Estimated GFR POC Glucose 162 H 177 H Random Glucose Calcium Microbiology Microbiology Results: Microbiology 07/06/22 Unknown Urine Culture - Preliminary Urine Catheterized - Straight Catheter Gram negative jamir 07/06/22 01:09 Blood Culture - Preliminary Blood - Venous Gram negative jamir 07/06/22 00:40 Blood Culture - Preliminary Blood - Venous Gram negative jamir Assessment and Plan (1) Sepsis: Status: Acute (2) Acute UTI: Status: Acute (3) Encephalopathy: Status: Acute (4) Gram-negative bacteremia: Status: Acute Plan 77-year-old female with a history of underlying dementia presents the hospital with worsening altered mental status Of note she was admitted and discharged from the hospital in May for the same at that time found to have Staph epidermidis toxic metabolic encephalopathy in the setting of acute UTI mental status seems near basline as per rehab. - will treat underlying UTI with IV antibiotics - follow mentation - will obtain has CT # sepsis/gram neg bacteremia - secondary to UTI - has tachycardia, fever, no leukocytosis - will treat with IV antibiotics - IV fluids # acute UTI - Of note she was admitted and discharged from the hospital in May for the same at that time found to have Staph epidermidis - she was discharged on Ceftin June 25 - will treat with IV ceftriaxone - follow cultures # htn uncontrolled :improving continue home meds - follow BMP # diabetes - continue home insulin - will add low-dose sliding scale insulin - diabetic diet DVT prophylaxis:? Eliquis(home med). inpatient need: bacteremia/uti need iv antibiotics , c&s pending Quality Stroke Does the patient have a stroke diagnosis?: No VTE Prior VTE?: No VTE Risk Level:: Medical - moderate - high VTE Device Contraindication: Treatment Not Indicated VTE Drug Contraindication: N/A - Med Ordered
[2022-07-07] MEDS: Insulin Lispro 100 UNIT/ML 3 ML VIAL SUBCUT ×2 (17:48→21:06)
[2022-07-08] MEDS: 0.9 % Sodium Chloride Flush 3 ML SYRINGE IVFLUSH ×3 (00:14→18:07)
[2022-07-08 03:52] VITALS: BP 162/90; PULSE 99; RESP 18; TEMP 36.8; O2SAT 95
[2022-07-08] MEDS: cefTRIAXone sodium 1 GM in 0.9 % Sodium Chloride 50 ML IV (04:48)
[2022-07-08 06:51] VITALS: BP 150/72; PULSE 87; RESP 20; TEMP 35.5; O2SAT 92
[2022-07-08 07:05] LABS: Glucose, Whole Blood 159 mg/dL (60-115)
[2022-07-08] MEDS: Apixaban 5 MG TABLET PO ×2 (09:22→20:25)
[2022-07-08] MEDS: Mineral Oil/Petrolatum,White 106 GM Tube 1 APPL TOPICAL ×2 (09:22→20:26)
[2022-07-08] MEDS: Escitalopram Oxalate 10 MG TABLET PO (09:22)
[2022-07-08] MEDS: Metoprolol Succinate ER 50 MG TAB.ER.24H PO (09:22)
[2022-07-08] MEDS: allopurinoL 300 MG TABLET PO (09:22)
[2022-07-08] MEDS: Bacitracin Oint 14 GM TUBE 1 APPL TOPICAL (09:22)
[2022-07-08] MEDS: polyethylene glycoL 3350 17 GM POWD.PACK PO (09:22)
[2022-07-08] MEDS: Multivitamin TABLET 1 TAB PO (09:22)
[2022-07-08] MEDS: Nystatin Powder 15 GM BOTTLE 1 APPL TOPICAL (09:23)
[2022-07-08 09:26] VITALS: O2SAT 83; O2SAT 94
[2022-07-08 11:11] VITALS: BP 148/72; PULSE 84; RESP 20; TEMP 35.8; O2SAT 92
[2022-07-08 11:27] LABS: Glucose, Whole Blood 180 mg/dL (60-115)
--- NOTE | 2022-07-08 12:34 | P.PNIM_ITS ---
Subjective Subjective Date of Service: 07/08/22 Interval History: toxic metabolic encephalopathy, uti ,gram neg bacteremia Review of Systems Mental status seems similar to yesterday. Moves arms and legs Physical Exam Vital Signs: Vital Signs: Last Vital Signs Temp 96.5 F L 07/08/22 11:11 Pulse 84 07/08/22 11:11 Resp 20 07/08/22 11:11 BP 148/72 H 07/08/22 11:11 Pulse Ox 92 07/08/22 11:11 O2 Del Method 07/08/22 11:11 O2 Flow Rate 2 07/08/22 11:11 BMI result Body Mass Index 28.1 Appearance: awake ,not in distress.?. cvs: rrr, [id number] . res: clear to auscultation ,no rhonchii or wheezing abd: no rebound or guarding ,nt, bs present. ext pulses present , no cyanosis . neuro: nonfocal. Objective Data Active Medications Acetaminophen (Acetaminophen 325 Mg Tablet) 650 mg PO Q6H PRN PRN Reason: Pain, Mild (Pain Scale 1-3) Allopurinol (Allopurinol 300 Mg Tablet) 300 mg PO DAILY [facility] Last Admin: 07/08/22 09:22 Dose: 300 mg Documented By: AGUILAR Apixaban (Apixaban 5 Mg Tablet) 5 mg PO BID [facility] Last Admin: 07/08/22 09:22 Dose: 5 mg Documented By: AGUILAR Bacitracin (Bacitracin Oint 14 Gm Tube) 1 appl TOPICAL DAILY@10 [facility]; Protocol Last Admin: 07/08/22 09:22 Dose: 1 appl Documented By: AGUILAR Dextrose (Dextrose 50 % 25 Gm/50 Ml Syringe) 25 gm IVPUSH Q15M PRN; Protocol PRN Reason: per Hypoglycemia Standing Ord. Dextrose (Dextrose 50 % 25 Gm/50 Ml Syringe) 25 gm IVPUSH Q15M PRN; Protocol PRN Reason: per Hypoglycemia Standing Ord. Docusate Sodium (Docusate Sodium 100 Mg Capsule) 100 mg PO DAILY PRN PRN Reason: Constipation Escitalopram Oxalate (Escitalopram Oxalate 10 Mg Tablet) 10 mg PO DAILY [facility] Last Admin: 07/08/22 09:22 Dose: 10 mg Documented By: AGUILAR Glucose (Glucose Gel 15 Gm Gel..Gram.) 15 gm PO Q15M PRN; Protocol PRN Reason: per Hypoglycemia Standing Ord. Glucose (Glucose Gel 15 Gm Gel..Gram.) 15 gm PO Q15M PRN; Protocol PRN Reason: per Hypoglycemia Standing Ord. Ceftriaxone Sodium 1 gm/ (Sodium Chloride) 50 mls @ 100 mls/hr IV Q24H [facility] Last Infusion: 07/08/22 05:28 Dose: 0 mls/hr Documented By: BERNABERISAnnie Insulin Human Lispro (Insulin Lispro 100 Unit/Ml 3 Ml Vial) 0 unit SUBCUT QIDACHS [facility]; Protocol Last Admin: 07/08/22 11:29 Dose: Not Given Documented By: AGUILAR Non-Admin Reason: No Insulin Coverage Metoprolol Succinate (Metoprolol Succinate Er 50 Mg Tab.Er.24h) 50 mg PO DAILY [facility]; Protocol Last Admin: 07/08/22 09:22 Dose: 50 mg Documented By: AGUILAR Multi-Ingred Cream/Lotion/Oil/Oint (Mineral Oil/Petrolatum,White 106 Gm Tube) 1 appl TOPICAL BID [facility] Last Admin: 07/08/22 09:22 Dose: 1 appl Documented By: AGUILAR Multivitamins/Vitamin C (Multivitamin Tablet) 1 tab PO DAILY [facility] Last Admin: 07/08/22 09:22 Dose: 1 tab Documented By: AGUILAR Nystatin (Nystatin Powder 15 Gm Bottle) 1 appl TOPICAL DAILY [facility]; Protocol Last Admin: 07/08/22 09:23 Dose: 1 appl Documented By: AGUILAR Ondansetron HCl (Ondansetron Hcl 4 Mg/2 Ml Vial) 4 mg IVPUSH Q8H PRN PRN Reason: Nausea and Vomiting Polyethylene Glycol (Polyethylene Glycol 3350 17 Gm Powd.Pack) 17 gm PO DAILY [facility] Last Admin: 07/08/22 09:22 Dose: 17 gm Documented By: AGUILAR Sodium Chloride (0.9 % Sodium Chloride Flush 3 Ml Syringe) 3 ml IVFLUSH QSHIFT [facility] Last Admin: 07/08/22 09:23 Dose: 3 ml Documented By: AGUILAR Labs CBC & Chem 7: 07/06/22 06:17 07/06/22 19:13 Labs: Laboratory Results - last 24 hr 07/07/22 07/07/22 07/08/22 14:58 19:33 06:51 POC Glucose 215 H 223 H 159 H 07/08/22 11:12 POC Glucose 180 H Microbiology Microbiology Results: Microbiology 07/06/22 Unknown Urine Culture - Final Urine Catheterized - Straight Catheter Escherichia coli 07/06/22 01:09 Blood Culture - Final Blood - Venous Escherichia coli 07/06/22 00:40 Blood Culture - Final Blood - Venous Escherichia coli Assessment and Plan (1) Acute UTI: Status: Acute (2) E coli bacteremia: Status: Acute Plan 77-year-old female with a history of underlying dementia presents the hospital with worsening altered mental status Of note she was admitted and discharged from the hospital in May for the same at that time found to have Staph epidermidis ?toxic metabolic encephalopathy in the setting of acute UTI per staff-mental status seems near basline as per rehab. - will treat underlying UTI with IV antibiotics - follow mentation - will obtain has CT # sepsis/gram neg bacteremia - secondary to UTI Urine and blood culture both growing E coli-sensitive to ceftriaxone - will treat with IV antibiotics - IV fluids # acute UTI - Of note she was admitted and discharged from the hospital in May for the same at that time found to have Staph epidermidis - she was discharged on Ceftin June 25 - will treat with IV ceftriaxone - follow cultures # htn uncontrolled :improving continue home meds - follow BMP # diabetes - continue home insulin - will add low-dose sliding scale insulin - diabetic diet DVT prophylaxis:? Eliquis(home med). inpatient need: Ecoli bacteremia/uti? need iv antibiotics ,id eval. Quality Stroke Does the patient have a stroke diagnosis?: No VTE Prior VTE?: No VTE Risk Level:: Medical - moderate - high VTE Device Contraindication: Treatment Not Indicated VTE Drug Contraindication: N/A - Med Ordered
[2022-07-08 13:08] VITALS: BMI 28.1
--- NOTE | 2022-07-08 13:15 | MHC.CLN ---
NUTRITION CONSULT FOR STAGE II WOUND TO BUTTOCK. DIET=DIABETIC 1800 KCALS, PUREE CONSISTENCY. INTAKE VARIABLE, 0-100%. ADDING GLUCERNA TID (700 KCALS, 30 G PROTEIN) TO PROMOTE WOUND HEALING.
--- NOTE | 2022-07-08 13:32 | MHC.SL.SWA ---
Speech Pathologist Impression: Oropharyngeal dysphagia secondary to underlying dementia Risk of Aspiration Due to: Neurological Condition Reduced Cognition Dysphasia Diet Status: Downgrade liquids to NT Liquid Consistency and Strategies for Safe Swallow: Liquid Intake Recommendation: [place] Thick Liquid Intake Strategies: Small Sips No Straws Solid Food Consistency: Dietary Recommendations: Pureed (NDD1) Additional Modifications to Solid Foods: Recommend continue with PUREED (NDD1) diet and DOWNGRADE to NECTAR THICK liquids, pills CRUSHED in PUREE. Pt requires total 1:1 assistance feeding and aspiration precautions. Minimize distractions during meals. Ensure pt is awake and alert for presentation of PO. Diet order updated by PEDIATRIC DERMATOLOGIST. Updated MD, RN, RD of recommendations via [place] Message. PEDIATRIC DERMATOLOGIST will continue to follow. Oral Medication Intake: Crushed with Puree Please contact the pharmacy regarding appropriate crushable or liquid drug formulations that are available whenever modified delivery is recommended. Compensatory Strategies and Precautions to be Taken for Safe Swallow: Sitting Upright (90 deg) No Straw Liquids from Cup Liquids from Spoon Small Bites and Sips Rate of Ingestion Change Oral Check Supervision While Eating and Drinking for Safe Swallow: Total Assistance (1:1) Swallowing Recommended Treatments: Compens. Strategy Educat. Recommendation for Speech: Inpatient Speech Therapy Comment: PEDIATRIC DERMATOLOGIST will continue to follow. Call Center Professional Clinican/Clinical Fellow: No Supervisory Statement: I have reviewed and agree with the student/clinical fellow's documentation: N/A Speech Language Pathologist: Roselyn Condon M.A., [facility]-PEDIATRIC DERMATOLOGIST
[2022-07-08 14:52] LABS: Anion Gap 13 (12-20); Blood Urea Nitrogen 13 mg/dL (9-16); Calcium 9.6 mg/dL (8.4-10.2); Carbon Dioxide 35 mmol/L (22-29); Chloride 107 mmol/L (96-108); Creatinine Clr Calc Pharmacy 104.7; Estimated Glomerular Filt Rate > 60; Glucose Random 225 mg/dL (60-115); Potassium 3.8 mmol/L (3.3-5.1); Sodium 151 mmol/L (135-145)
--- NOTE | 2022-07-08 15:10 | PC.NURSE ---
Patient with no void 7a-3p. Bladder scanned for 382. Patient then voided to purewick 150cc. Dr. Larsen notified. Straight cath orders entered but holding for now due to patient voiding on own. Flomax ordered.
[2022-07-08 16:16] VITALS: BP 168/100; PULSE 88; RESP 20; TEMP 36.1; O2SAT 100
[2022-07-08 16:32] LABS: Glucose, Whole Blood 170 mg/dL (60-115)
--- NOTE | 2022-07-08 18:35 | PC.NURSE ---
BP 160/100. Dr. Larsen notified. No new orders.
[2022-07-08 19:19] VITALS: BP 146/70; PULSE 84; RESP 19; TEMP 36.3; O2SAT 95
[2022-07-08 19:54] LABS: Glucose, Whole Blood 187 mg/dL (60-115)
[2022-07-08] MEDS: Tamsulosin HCL 0.4 MG CAPSULE PO (20:25)
[2022-07-08] MEDS: Dextrose 5 % 1,000 ML 50 ML IVCONT (20:26)
[2022-07-09] VITALS (7 sets, daily range): BP systolic 158–172; BP diastolic 60–93; PULSE 70–88; RESP 16–18; TEMP 36–36.6; O2SAT 95–100
[2022-07-09 01:59] LABS: Sodium 150 mmol/L (135-145)
[2022-07-09] MEDS: cefTRIAXone sodium 1 GM in 0.9 % Sodium Chloride 50 ML IV (04:13)
[2022-07-09 06:49] LABS: Hematocrit 34.4 % (37.0-47.0); Hemoglobin 10.3 g/dl (12.0-16.0); Mean Corpuscular HGB Conc 29.9 g/dl (31.0-35.0); Mean Corpuscular Hemoglobin 26.8 pg (27.0-33.0); Mean Corpuscular Volume 89.4 fL (80.0-98.0); Mean Platelet Volume 10.8 fL (9.4-12.3); Platelet Count 167 X10*3/uL (160-400); Red Blood Count 3.85 X10*6/uL (4.20-5.50); Red Cell Distribution Width 14.1 % (11.0-16.0); White Blood Count 6.6 X10*3/uL (4.8-10.8)
[2022-07-09 07:17] LABS: Blood Urea Nitrogen 12 mg/dL (9-16); Calcium 9.6 mg/dL (8.4-10.2); Creatinine Clr Calc Pharmacy 118.7; Estimated Glomerular Filt Rate > 60; Glucose Random 189 mg/dL (60-115)
[2022-07-09 07:36] LABS: Anion Gap 14 (12-20); Carbon Dioxide 35 mmol/L (22-29); Chloride 106 mmol/L (96-108); Potassium 3.6 mmol/L (3.3-5.1); Sodium 151 mmol/L (135-145)
[2022-07-09 07:58] LABS: Glucose, Whole Blood 156 mg/dL (60-115)
--- NOTE | 2022-07-09 09:11 | P.PNIM_ITS ---
Subjective Subjective Date of Service: 07/09/22 Interval History: Follow-up toxic metabolic encephalopathy, uti ,gram neg bacteremia Nonverbal, just smiling Sitting up in bed, being fed by the aide Review of Systems Mental status seems similar to yesterday. Moves arms and legs Physical Exam Vital Signs: Vital Signs: Last Vital Signs Temp 97.4 F 07/09/22 08:00 Pulse 87 07/09/22 08:21 Resp 18 07/09/22 08:00 BP 172/93 H 07/09/22 08:21 Pulse Ox 95 07/09/22 08:21 O2 Del Method 07/09/22 08:00 O2 Flow Rate 2 07/09/22 08:00 BMI result Body Mass Index 28.1 Appearing in no acute distress heart regular rate rhythm, clear S1, S2 positive bowel sounds, abdomen is soft, nontender neuro patient is alert Objective Data Active Medications Acetaminophen (Acetaminophen 325 Mg Tablet) 650 mg PO Q6H PRN PRN Reason: Pain, Mild (Pain Scale 1-3) Allopurinol (Allopurinol 300 Mg Tablet) 300 mg PO DAILY [facility] Last Admin: 07/08/22 09:22 Dose: 300 mg Documented By: AGUILAR Apixaban (Apixaban 5 Mg Tablet) 5 mg PO BID [facility] Last Admin: 07/08/22 20:25 Dose: 5 mg Documented By: NAVA Bacitracin (Bacitracin Oint 14 Gm Tube) 1 appl TOPICAL DAILY@10 [facility]; Protocol Last Admin: 07/08/22 09:22 Dose: 1 appl Documented By: AGUILAR Dextrose (Dextrose 50 % 25 Gm/50 Ml Syringe) 25 gm IVPUSH Q15M PRN; Protocol PRN Reason: per Hypoglycemia Standing Ord. Dextrose (Dextrose 50 % 25 Gm/50 Ml Syringe) 25 gm IVPUSH Q15M PRN; Protocol PRN Reason: per Hypoglycemia Standing Ord. Docusate Sodium (Docusate Sodium 100 Mg Capsule) 100 mg PO DAILY PRN PRN Reason: Constipation Escitalopram Oxalate (Escitalopram Oxalate 10 Mg Tablet) 10 mg PO DAILY [facility] Last Admin: 07/08/22 09:22 Dose: 10 mg Documented By: AGUILAR Glucose (Glucose Gel 15 Gm Gel..Gram.) 15 gm PO Q15M PRN; Protocol PRN Reason: per Hypoglycemia Standing Ord. Glucose (Glucose Gel 15 Gm Gel..Gram.) 15 gm PO Q15M PRN; Protocol PRN Reason: per Hypoglycemia Standing Ord. Ceftriaxone Sodium 1 gm/ (Sodium Chloride) 50 mls @ 100 mls/hr IV Q24H [facility] Last Infusion: 07/09/22 06:10 Dose: 0 mls/hr Documented By: NAVA Dextrose (D5w) 1,000 mls @ 100 mls/hr IVCONT .Q10H [facility] Last Admin: 07/08/22 20:26 Dose: 50 mls/hr Documented By: NAVA Insulin Human Lispro (Insulin Lispro 100 Unit/Ml 3 Ml Vial) 0 unit SUBCUT QIDACHS [facility]; Protocol Last Admin: 07/09/22 08:03 Dose: Not Given Documented By: COLIN Non-Admin Reason: No Insulin Coverage Metoprolol Succinate (Metoprolol Succinate Er 50 Mg Tab.Er.24h) 50 mg PO DAILY [facility]; Protocol Last Admin: 07/08/22 09:22 Dose: 50 mg Documented By: AGUILAR Multi-Ingred Cream/Lotion/Oil/Oint (Mineral Oil/Petrolatum,White 106 Gm Tube) 1 appl TOPICAL BID [facility] Last Admin: 07/08/22 20:26 Dose: 1 appl Documented By: NAVA Multivitamins/Vitamin C (Multivitamin Tablet) 1 tab PO DAILY [facility] Last Admin: 07/08/22 09:22 Dose: 1 tab Documented By: AGUILAR Nystatin (Nystatin Powder 15 Gm Bottle) 1 appl TOPICAL DAILY [facility]; Protocol Last Admin: 07/08/22 09:23 Dose: 1 appl Documented By: AGUILAR Ondansetron HCl (Ondansetron Hcl 4 Mg/2 Ml Vial) 4 mg IVPUSH Q8H PRN PRN Reason: Nausea and Vomiting Polyethylene Glycol (Polyethylene Glycol 3350 17 Gm Powd.Pack) 17 gm PO DAILY [facility] Last Admin: 07/08/22 09:22 Dose: 17 gm Documented By: AGUILAR Sodium Chloride (0.9 % Sodium Chloride Flush 3 Ml Syringe) 3 ml IVFLUSH QSHIFT [facility] Last Admin: 07/09/22 07:36 Dose: Not Given Documented By: HO.MATTHEP Non-Admin Reason: IV Running Tamsulosin HCl (Tamsulosin Hcl 0.4 Mg Capsule) 0.4 mg PO BEDTIME [facility] Last Admin: 07/08/22 20:25 Dose: 0.4 mg Documented By: NAVA Labs CBC & Chem 7: 07/09/22 05:52 07/09/22 05:52 Labs: Laboratory Results - last 24 hr 07/08/22 07/08/22 07/08/22 11:12 14:32 16:26 MCV MCH MCHC RDW Plt Count MPV Absolute Nucleated RBC Nucleated RBC % (auto) Anion Gap 13 Estim Creat Clear Calc 104.7 Estimated GFR > 60 POC Glucose 180 H 170 H Random Glucose 225 H Calcium 9.6 D 07/08/22 07/09/22 07/09/22 19:29 05:52 05:52 MCV 89.4 MCH 26.8 L MCHC 29.9 L RDW 14.1 Plt Count 167 MPV 10.8 Absolute Nucleated RBC 0.000 Nucleated RBC % (auto) 0.0 Anion Gap 14 Estim Creat Clear Calc 118.7 Estimated GFR > 60 POC Glucose 187 H Random Glucose 189 H Calcium 9.6 07/09/22 07:47 MCV MCH MCHC RDW Plt Count MPV Absolute Nucleated RBC Nucleated RBC % (auto) Anion Gap Estim Creat Clear Calc Estimated GFR POC Glucose 156 H Random Glucose Calcium Microbiology Microbiology Results: Microbiology 07/06/22 Unknown Urine Culture - Final Urine Catheterized - Straight Catheter Escherichia coli 07/06/22 01:09 Blood Culture - Final Blood - Venous Escherichia coli 07/06/22 00:40 Blood Culture - Final Blood - Venous Escherichia coli Assessment and Plan (1) Acute UTI: Status: Acute (2) E coli bacteremia: Status: Acute Plan 77-year-old female with a history of underlying dementia presents the hospital with worsening altered mental status Toxic metabolic encephalopathy secondary to E coli bacteremia, E coli urinary tract infection Apparently mentation is near baseline He urine and blood culture growing E coli sensitive to ceftriaxone Will involve ID, pending Hypertension Stable blood pressure Continue home medications Diabetes mellitus Sliding scale, ADA diet Normocytic anemia No bleeding Follow CBC 1:1 feeding DVT prophylaxis with [facility] Attending Dr. Cyr DNR DNI Disposition plan for back to [facility] once medically cleared continue hospitalization for treatment of E coli bacteremia and UTI necessitating IV antibiotics and infectious disease evaluation Quality Stroke Does the patient have a stroke diagnosis?: No VTE Prior VTE?: No VTE Risk Level:: Medical - moderate - high VTE Device Contraindication: Treatment Not Indicated VTE Drug Contraindication: N/A - Med Ordered
[2022-07-09] MEDS: allopurinoL 300 MG TABLET PO (10:20)
[2022-07-09] MEDS: Apixaban 5 MG TABLET PO ×2 (10:20→21:37)
[2022-07-09] MEDS: Metoprolol Succinate ER 50 MG TAB.ER.24H PO (10:20)
[2022-07-09] MEDS: Escitalopram Oxalate 10 MG TABLET PO (10:20)
[2022-07-09] MEDS: Multivitamin TABLET 1 TAB PO (10:20)
[2022-07-09] MEDS: polyethylene glycoL 3350 17 GM POWD.PACK PO (10:20)
[2022-07-09] MEDS: Mineral Oil/Petrolatum,White 106 GM Tube 1 APPL TOPICAL ×2 (10:21→21:38)
[2022-07-09] MEDS: Nystatin Powder 15 GM BOTTLE 1 APPL TOPICAL (10:21)
[2022-07-09] MEDS: Bacitracin Oint 14 GM TUBE 1 APPL TOPICAL (10:21)
[2022-07-09 11:53] LABS: Glucose, Whole Blood 192 mg/dL (60-115)
--- NOTE | 2022-07-09 11:57 | MHC.SLORD ---
Speech Language Pathology Order Status: Attempted to see PT this a.m., patient sleeping soundly, did not rouse to sternal rub. Removed containers of water from room, noted on communication board that Patient is on NECTAR thick liquids and puree. Will re-attempt later today, if pt available.
[2022-07-09] MEDS: Dextrose 5 % 1,000 ML 50 ML IVCONT (15:07)
--- NOTE | 2022-07-09 15:33 | W.PM.IDCN ---
History of Present Illness Data of Consult Service Date: 07/09/22 Requesting physician: Swathi Patel Primary Care Provider: FILOMENA HENAO Reason for consult: bacteremia She presents with weakness for last week and failure to thrive She has blood cultures and urine E coli No one else is ill Review of Systems Review of Systems: Yes Unobtainable due to mental status PMFSH Past Medical History Medical History Atrial fibrillation Dementia Diabetes GI bleed Gout High cholesterol Hypertension Family History Family History Mother No problems noted. Father No problems noted. Family history: reviewed and not pertinent Social History Social History Household Members: Other Household Members Other:: nsg home Housing: [place]way Do you presently have visiting nurse or other home services: No Unable to assess alcohol history related to: Unknown Alcohol intake: unknown Patient Tobacco Use Status: Refuse Tobacco use screen Second Hand Smoke Exposure: No Advance Directives Date on File: 06/04/22 service: No Current occupational status: retired Meds Allergies Allergy/AdvReac Type Severity Reaction Status Date / Time Penicillins Allergy Mild UNKNOWN Verified 05/29/22 00:54 erythromycin base Allergy Unknown UNKNOWN Verified 05/29/22 00:54 [ERYTHROMYCIN BASE] flecainide [FLECAINIDE] Allergy Unknown UNKNOWN Verified 05/29/22 00:54 Active Medications: Current Medications Acetaminophen (Acetaminophen 325 Mg Tablet) 650 mg PO Q6H PRN PRN Reason: Pain, Mild (Pain Scale 1-3) Allopurinol (Allopurinol 300 Mg Tablet) 300 mg PO DAILY [facility] Last Admin: 07/09/22 10:20 Dose: 300 mg Apixaban (Apixaban 5 Mg Tablet) 5 mg PO BID [facility] Last Admin: 07/09/22 10:20 Dose: 5 mg Bacitracin (Bacitracin Oint 14 Gm Tube) 1 appl TOPICAL DAILY@10 [facility]; Protocol Last Admin: 07/09/22 10:21 Dose: 1 appl Dextrose (Dextrose 50 % 25 Gm/50 Ml Syringe) 25 gm IVPUSH Q15M PRN; Protocol PRN Reason: per Hypoglycemia Standing Ord. Dextrose (Dextrose 50 % 25 Gm/50 Ml Syringe) 25 gm IVPUSH Q15M PRN; Protocol PRN Reason: per Hypoglycemia Standing Ord. Docusate Sodium (Docusate Sodium 100 Mg Capsule) 100 mg PO DAILY PRN PRN Reason: Constipation Escitalopram Oxalate (Escitalopram Oxalate 10 Mg Tablet) 10 mg PO DAILY [facility] Last Admin: 07/09/22 10:20 Dose: 10 mg Glucose (Glucose Gel 15 Gm Gel..Gram.) 15 gm PO Q15M PRN; Protocol PRN Reason: per Hypoglycemia Standing Ord. Glucose (Glucose Gel 15 Gm Gel..Gram.) 15 gm PO Q15M PRN; Protocol PRN Reason: per Hypoglycemia Standing Ord. Ceftriaxone Sodium 1 gm/ (Sodium Chloride) 50 mls @ 100 mls/hr IV Q24H [facility] Last Infusion: 07/09/22 06:10 Dose: Infused Dextrose (D5w) 1,000 mls @ 100 mls/hr IVCONT .Q10H [facility] Last Admin: 07/09/22 15:07 Dose: 50 mls/hr Insulin Human Lispro (Insulin Lispro 100 Unit/Ml 3 Ml Vial) 0 unit SUBCUT QIDACHS [facility]; Protocol Last Admin: 07/09/22 11:36 Dose: Not Given Metoprolol Succinate (Metoprolol Succinate Er 50 Mg Tab.Er.24h) 50 mg PO DAILY [facility]; Protocol Last Admin: 07/09/22 10:20 Dose: 50 mg Multi-Ingred Cream/Lotion/Oil/Oint (Mineral Oil/Petrolatum,White 106 Gm Tube) 1 appl TOPICAL BID [facility] Last Admin: 07/09/22 10:21 Dose: 1 appl Multivitamins/Vitamin C (Multivitamin Tablet) 1 tab PO DAILY [facility] Last Admin: 07/09/22 10:20 Dose: 1 tab Nystatin (Nystatin Powder 15 Gm Bottle) 1 appl TOPICAL DAILY [facility]; Protocol Last Admin: 07/09/22 10:21 Dose: 1 appl Ondansetron HCl (Ondansetron Hcl 4 Mg/2 Ml Vial) 4 mg IVPUSH Q8H PRN PRN Reason: Nausea and Vomiting Polyethylene Glycol (Polyethylene Glycol 3350 17 Gm Powd.Pack) 17 gm PO DAILY [facility] Last Admin: 07/09/22 10:20 Dose: 17 gm Sodium Chloride (0.9 % Sodium Chloride Flush 3 Ml Syringe) 3 ml IVFLUSH QSHIFT [facility] Last Admin: 07/09/22 14:54 Dose: Not Given Tamsulosin HCl (Tamsulosin Hcl 0.4 Mg Capsule) 0.4 mg PO BEDTIME [facility] Last Admin: 07/08/22 20:25 Dose: 0.4 mg Home Medications Medication Instructions Recorded Confirmed Last Taken Type acetaminophen 325 mg tablet 650 mg PO Q4H PRN Fever Or Pain 05/29/22 07/06/22 Unknown History allopurinol 300 mg tablet 1 tab PO DAILY 05/29/22 07/06/22 Unknown History apixaban 5 mg tablet (Eliquis) 1 tab PO BID 05/29/22 07/06/22 Unknown History cholecalciferol (vitamin D3) 25 25 mcg PO DAILY 05/29/22 07/06/22 Unknown History mcg (1,000 unit) tablet (Vitamin D3) escitalopram oxalate 10 mg tablet 1 tab PO DAILY 05/29/22 07/06/22 Unknown History insulin glargine 100 unit/mL (3 30 unit subcut BEDTIME 05/29/22 07/06/22 Unknown History mL) subcutaneous pen (Basaglar KwikPen U-100 Insulin) metoprolol succinate 25 mg 1 tab PO DAILY 05/29/22 07/06/22 Unknown History tablet,extended release 24 hr multivitamin 1 tab PO DAILY 05/29/22 07/06/22 Unknown History nystatin 100,000 unit/gram topical 1 appl topical DAILY 05/29/22 07/06/22 Unknown History powder (Nystop) ondansetron HCl 4 mg tablet 4 mg PO Q8H PRN Nausea And Vomiting 05/29/22 07/06/22 Unknown History polyethylene glycol 3350 17 17 g PO DAILY 05/29/22 07/06/22 Unknown History gram/dose oral powder (Miralax) bacitracin 500 unit/gram topical 1 appl topical DAILY@10 07/06/22 07/06/22 Unknown History ointment furosemide 40 mg tablet 1 tab PO BID 07/06/22 07/06/22 Unknown History mineral oil-hydrophil petrolat 1 appl topical BID 07/06/22 07/06/22 Unknown History topical ointment (DermaPhor topical ointment) Physical Exam Vital Signs: Vital Signs: Last Vital Signs Temp 97.3 F 07/09/22 11:33 Pulse 70 07/09/22 11:33 Resp 18 07/09/22 11:33 BP 169/90 H 07/09/22 11:33 Pulse Ox 100 07/09/22 11:33 O2 Del Method 07/09/22 11:33 O2 Flow Rate 2 07/09/22 11:33 BMI result Body Mass Index 28.1 Const: General: cooperative HEENT: Head: Yes normal to inspection Face and sinus: Yes normal facial exam Mouth: Normal oral and palatal mucosa present Teeth and gingiva: dentition normal Eyes: General: appearance normal, both eyes and all related structures Pupils: Equal, round and reactive pupils present Resp: Effort & Inspection: normal respiratory effort Cardio: Rate: regular rate Rhythm: regular rhythm GI: Palpation (GI): Soft to palpation and nontender : General: Yes no CVA tenderness Back/Spine/Pelvis: Back: no CVA tenderness Skin: General skin exam: no rashes or lesions noted Neuro: General: moves all extremities Cranial nerves: Yes Equal, round and reactive pupils present Extrem: General: Yes normal to inspection Psych: Other: somnolent Results Labs CBC & Chem 7: 07/09/22 05:52 07/09/22 05:52 Labs: Short CBC 07/09/22 Range/Units 05:52 WBC 6.6 (4.8-10.8) X10*3/uL Hgb 10.3 L (12.0-16.0) g/dl Hct 34.4 L (37.0-47.0) % Plt Count 167 (160-400) X10*3/uL BMP 07/09/22 07/09/22 01:27 05:52 Sodium 150 H 151 H Potassium 3.6 Chloride 106 Carbon Dioxide 35 H BUN 12 Creatinine 0.45 L Calcium 9.6 Microbiology Microbiology Results: Microbiology 07/06/22 Unknown Urine Catheterized - Straight Catheter Urine Culture - Final Escherichia coli 07/06/22 01:09 Blood - Venous Blood Culture - Final Escherichia coli 07/06/22 00:40 Blood - Venous Blood Culture - Final Escherichia coli Assessment and Plan (1) E coli bacteremia: Status: Acute She has urinary source?obstruction There is no known concerns with active nephrolithiasis There could be urinary stasis. (2) Gram-negative bacteremia: Status: Acute Plan Continue Ceftriaxone. Can change to po Ceftin 14 d total on discharge. Consider renal u/s or abdominal CT evaluate obstruction
[2022-07-09 16:30] LABS: Glucose, Whole Blood 187 mg/dL (60-115)
[2022-07-09 20:05] LABS: Glucose, Whole Blood 230 mg/dL (60-115)
[2022-07-09] MEDS: Tamsulosin HCL 0.4 MG CAPSULE PO (21:37)
[2022-07-09] MEDS: Insulin Lispro 100 UNIT/ML 3 ML VIAL SUBCUT (21:37)
[2022-07-10] VITALS: BP 154/72; PULSE 65; RESP 16; TEMP 36.5; O2SAT 96
[2022-07-10 03:34] VITALS: BP 168/72; PULSE 70; RESP 16; TEMP 36.6; O2SAT 98
[2022-07-10] MEDS: cefTRIAXone sodium 1 GM in 0.9 % Sodium Chloride 50 ML IV (04:52)
[2022-07-10 07:57] VITALS: BP 170/70; PULSE 65; RESP 18; TEMP 36.1; O2SAT 100
[2022-07-10 08:00] LABS: Glucose, Whole Blood 156 mg/dL (60-115)
[2022-07-10] MEDS: Metoprolol Succinate ER 50 MG TAB.ER.24H PO (10:03)
[2022-07-10] MEDS: allopurinoL 300 MG TABLET PO (10:03)
[2022-07-10] MEDS: Mineral Oil/Petrolatum,White 106 GM Tube 1 APPL TOPICAL ×2 (10:04→21:17)
[2022-07-10] MEDS: Nystatin Powder 15 GM BOTTLE 1 APPL TOPICAL (10:04)
[2022-07-10] MEDS: Escitalopram Oxalate 10 MG TABLET PO (10:04)
[2022-07-10] MEDS: Multivitamin TABLET 1 TAB PO (10:04)
[2022-07-10] MEDS: Apixaban 5 MG TABLET PO ×2 (10:04→21:17)
[2022-07-10] MEDS: Bacitracin Oint 14 GM TUBE 1 APPL TOPICAL (10:05)
[2022-07-10] MEDS: polyethylene glycoL 3350 17 GM POWD.PACK PO (10:05)
--- NOTE | 2022-07-10 10:19 | MHC.CM.PN ---
[facility]AL PL[facility]
--- NOTE | 2022-07-10 11:03 | MHC.SL.SWA ---
Addendum entered and electronically signed by Roselyn Condon MA, CCC-TEA PLANTATION WORKER 07/10/22 11:17: D.S. Original Note: Speech Pathologist Impression: Oropharyngeal Dysphagia Risk of Aspiration Due to: Neurological Condition Reduced Cognition Dysphasia Diet Status: No change Liquid Consistency and Strategies for Safe Swallow: Liquid Intake Recommendation: [place] Thick Liquid Intake Strategies: Small Sips No Straws Solid Food Consistency: Dietary Recommendations: Pureed (NDD1) Oral Medication Intake: Crushed with Puree Please contact the pharmacy regarding appropriate crushable or liquid drug formulations that are available whenever modified delivery is recommended. Compensatory Strategies and Precautions to be Taken for Safe Swallow: Sitting Upright (90 deg) No Straw Liquids from Cup Liquids from Spoon Small Bites and Sips Rate of Ingestion Change Oral Check Supervision While Eating and Drinking for Safe Swallow: Total Assistance (1:1) Swallowing Recommended Treatments: Compens. Strategy Educat. Recommendation for Speech: Inpatient Speech Therapy Pt tolerated trace amount of water via teaspoon with no s/s of aspiration. When presented with full teaspoon of water, pt coughed immediately. Pt tolerated nectar thick liquid with no s/s of aspiration. At times, pt holds bolus in mouth for short period prior to swallowing. Pt benefits from verbal and tactile cues (gently touching throat) to swallow. Recommend continue with PUREED (NDD1) diet and DOWNGRADE to NECTAR THICK liquids, pills CRUSHED in PUREE. Pt requires total 1:1 assistance feeding and aspiration precautions. Minimize distractions during meals. Ensure pt is awake and alert for presentation of PO. Mobile Lounge Driver Clinican/Clinical Fellow: Yes: Alissa Raman M.A., CF-[employer] WORK[employer]
[2022-07-10 11:27] LABS: Glucose, Whole Blood 207 mg/dL (60-115)
[2022-07-10 11:29] VITALS: BP 154/69; PULSE 70; RESP 18; TEMP 36.4; O2SAT 100
[2022-07-10] MEDS: Dextrose 5 % 1,000 ML 50 ML IVCONT (12:03)
[2022-07-10] MEDS: Insulin Lispro 100 UNIT/ML 3 ML VIAL SUBCUT (12:03)
--- NOTE | 2022-07-10 14:10 | P.PNIM_ITS ---
Subjective Subjective Date of Service: 07/10/22 Interval History: Being followed for E coli bacteremia, patient verbalizes few words has baseline dementia tolerating by mouth diet, no overnight events, no fevers no chills, no nausea, no vomiting. Physical Exam Vital Signs: Vital Signs: Last Vital Signs Temp 97.5 F 07/10/22 11:29 Pulse 70 07/10/22 11:29 Resp 18 07/10/22 11:29 BP 154/69 H 07/10/22 11:29 Pulse Ox 100 07/10/22 11:29 O2 Del Method 07/10/22 11:29 O2 Flow Rate 2 07/10/22 11:29 BMI result Body Mass Index 28.1 Const: Other: ?General Awake alert,in no acute distress Neck no JVD Anicteric sclera Lungs clear to auscultation no wheeze, no crackles ?heart regular rate rhythm, clear? S1, S2 ?Abdomen soft nontender bowel sounds audible ?neuro moving all 4 extremities, awake alert Psych poor insight Objective Data Active Medications Acetaminophen (Acetaminophen 325 Mg Tablet) 650 mg PO Q6H PRN PRN Reason: Pain, Mild (Pain Scale 1-3) Allopurinol (Allopurinol 300 Mg Tablet) 300 mg PO DAILY [facility] Last Admin: 07/10/22 10:03 Dose: 300 mg Documented By: COLIN Apixaban (Apixaban 5 Mg Tablet) 5 mg PO BID [facility] Last Admin: 07/10/22 10:04 Dose: 5 mg Documented By: COLIN Bacitracin (Bacitracin Oint 14 Gm Tube) 1 appl TOPICAL DAILY@10 [facility]; Protocol Last Admin: 07/10/22 10:05 Dose: 1 appl Documented By: COLIN Dextrose (Dextrose 50 % 25 Gm/50 Ml Syringe) 25 gm IVPUSH Q15M PRN; Protocol PRN Reason: per Hypoglycemia Standing Ord. Dextrose (Dextrose 50 % 25 Gm/50 Ml Syringe) 25 gm IVPUSH Q15M PRN; Protocol PRN Reason: per Hypoglycemia Standing Ord. Docusate Sodium (Docusate Sodium 100 Mg Capsule) 100 mg PO DAILY PRN PRN Reason: Constipation Escitalopram Oxalate (Escitalopram Oxalate 10 Mg Tablet) 10 mg PO DAILY [facility] Last Admin: 07/10/22 10:04 Dose: 10 mg Documented By: COLIN Glucose (Glucose Gel 15 Gm Gel..Gram.) 15 gm PO Q15M PRN; Protocol PRN Reason: per Hypoglycemia Standing Ord. Glucose (Glucose Gel 15 Gm Gel..Gram.) 15 gm PO Q15M PRN; Protocol PRN Reason: per Hypoglycemia Standing Ord. Ceftriaxone Sodium 1 gm/ (Sodium Chloride) 50 mls @ 100 mls/hr IV Q24H [facility] Last Infusion: 07/10/22 05:35 Dose: 0 mls/hr Documented By: CASTILM Dextrose (D5w) 1,000 mls @ 100 mls/hr IVCONT .Q10H [facility] Last Admin: 07/10/22 12:03 Dose: 50 mls/hr Documented By: COLIN Insulin Human Lispro (Insulin Lispro 100 Unit/Ml 3 Ml Vial) 0 unit SUBCUT QIDACHS [facility]; Protocol Last Admin: 07/10/22 12:03 Dose: 2 unit Documented By: COLIN Metoprolol Succinate (Metoprolol Succinate Er 50 Mg Tab.Er.24h) 50 mg PO DAILY [facility]; Protocol Last Admin: 07/10/22 10:03 Dose: 50 mg Documented By: COLIN Multi-Ingred Cream/Lotion/Oil/Oint (Mineral Oil/Petrolatum,White 106 Gm Tube) 1 appl TOPICAL BID [facility] Last Admin: 07/10/22 10:04 Dose: 1 appl Documented By: COLIN Multivitamins/Vitamin C (Multivitamin Tablet) 1 tab PO DAILY [facility] Last Admin: 07/10/22 10:04 Dose: 1 tab Documented By: COLIN Nystatin (Nystatin Powder 15 Gm Bottle) 1 appl TOPICAL DAILY [facility]; Protocol Last Admin: 07/10/22 10:04 Dose: 1 appl Documented By: COLIN Ondansetron HCl (Ondansetron Hcl 4 Mg/2 Ml Vial) 4 mg IVPUSH Q8H PRN PRN Reason: Nausea and Vomiting Polyethylene Glycol (Polyethylene Glycol 3350 17 Gm Powd.Pack) 17 gm PO DAILY [facility] Last Admin: 07/10/22 10:05 Dose: 17 gm Documented By: COLIN Sodium Chloride (0.9 % Sodium Chloride Flush 3 Ml Syringe) 3 ml IVFLUSH QSHIFT [facility] Last Admin: 07/10/22 07:10 Dose: Not Given Documented By: COLIN Non-Admin Reason: IV Running Tamsulosin HCl (Tamsulosin Hcl 0.4 Mg Capsule) 0.4 mg PO BEDTIME [facility] Last Admin: 07/09/22 21:37 Dose: 0.4 mg Documented By: MOLLY Labs CBC & Chem 7: 07/09/22 05:52 07/09/22 05:52 Labs: Laboratory Results - last 24 hr 07/09/22 07/09/22 07/10/22 16:05 19:53 07:31 POC Glucose 187 H 230 H 156 H 07/10/22 11:23 POC Glucose 207 H Assessment and Plan (1) Acute UTI: Status: Acute (2) E coli bacteremia: Status: Acute Plan 77-year-old female with a history of underlying dementia presents the hospital with worsening altered mental status Toxic metabolic encephalopathy secondary to E coli bacteremia, E coli urinary tract infection likely mentation is near baseline urine and blood culture grew E coli sensitive to ceftriaxone Case discussed with ID she recommend abdominal ultrasound to rule out obstruction, normal renal function continue IV ceftriaxone and transition to by mouth Ceftin upon discharge Hypernatremia Sodium 151 on 07/09 will repeat sodium and adjust IV fluids Hypertension Elevated blood pressure , continue metoprolol DC IV fluid, at home takes Lasix 40 mg b.i.d. follow BP and resume home medications Continue home medications Diabetes mellitus Blood sugars around 200, continue Sliding scale, ADA diet and Lantus Chronic Normocytic anemia No bleeding , hematocrit stable Atrial fibrillation on metoprolol and Eliquis DVT prophylaxis with Eliquis DNR DNI Disposition plan for back to [facility] once medically cleared continue hospitalization for treatment of E coli bacteremia and UTI necessitating IV antibiotics and further imaging studies Quality Stroke Does the patient have a stroke diagnosis?: No VTE Prior VTE?: No VTE Risk Level:: Medical - moderate - high VTE Device Contraindication: Treatment Not Indicated VTE Drug Contraindication: N/A - Med Ordered
--- NOTE | 2022-07-10 14:40 | MHC.CLN ---
F/U PATIENT WITH INCREASED NUTRITIONAL NEEDS DUE TO STAGE II WOUND TO BUTTOCK. DIET=DIABETIC 1800 KCALS, PUREE CONSISTENCY, NECTAR THICK LIQUIDS. GLUCERNA TID (700 KCALS, 30 G PROTEIN) TO PROMOTE WOUND HEALING. INTAKE VARIABLE WITH AVERAGE INTAKE X 3 DAYS APPROXIMATELY 50%. FOLLOW FOR INTAKE AND WOUND HEALING.
[2022-07-10 16:00] VITALS: BP 142/101; PULSE 76; RESP 20; TEMP 36.5; O2SAT 90
[2022-07-10 16:48] LABS: Glucose, Whole Blood 142 mg/dL (60-115)
[2022-07-10 18:32] LABS: Anion Gap 14 (12-20); Carbon Dioxide 33 mmol/L (22-29); Chloride 103 mmol/L (96-108); Potassium 3.8 mmol/L (3.3-5.1); Sodium 146 mmol/L (135-145)
[2022-07-10 19:27] VITALS: PULSE 88; RESP 18; TEMP 36.3; O2SAT 91
[2022-07-10 20:50] LABS: Glucose, Whole Blood 187 mg/dL (60-115)
[2022-07-10] MEDS: Tamsulosin HCL 0.4 MG CAPSULE PO (21:17)
[2022-07-11] VITALS: BP 142/80; PULSE 81; RESP 18; TEMP 36.7; O2SAT 96
[2022-07-11] MEDS: 0.9 % Sodium Chloride Flush 3 ML SYRINGE IVFLUSH ×2 (00:27→17:10)
[2022-07-11 04:00] VITALS: BP 146/80; PULSE 78; RESP 18; TEMP 36.3; O2SAT 97
[2022-07-11] MEDS: cefTRIAXone sodium 1 GM in 0.9 % Sodium Chloride 50 ML IV (04:35)
[2022-07-11 07:49] LABS: Glucose, Whole Blood 160 mg/dL (60-115)
[2022-07-11 08:00] VITALS: BP 150/70; PULSE 70; RESP 18; TEMP 36.3; O2SAT 97
[2022-07-11] MEDS: Multivitamin TABLET 1 TAB PO (08:26)
[2022-07-11] MEDS: Apixaban 5 MG TABLET PO ×2 (08:27→20:29)
[2022-07-11] MEDS: lisinopriL 5 MG TABLET PO (08:27)
[2022-07-11] MEDS: Escitalopram Oxalate 10 MG TABLET PO (08:27)
[2022-07-11] MEDS: allopurinoL 300 MG TABLET PO (08:27)
[2022-07-11] MEDS: Metoprolol Succinate ER 50 MG TAB.ER.24H PO (08:28)
[2022-07-11] MEDS: polyethylene glycoL 3350 17 GM POWD.PACK PO (08:29)
[2022-07-11] MEDS: Bacitracin Oint 14 GM TUBE 1 APPL TOPICAL (08:30)
[2022-07-11] MEDS: Mineral Oil/Petrolatum,White 106 GM Tube 1 APPL TOPICAL ×2 (08:30→20:32)
[2022-07-11] MEDS: Nystatin Powder 15 GM BOTTLE 1 APPL TOPICAL (08:31)
--- NOTE | 2022-07-11 09:55 | MHC.SL.SWA ---
Speech Pathologist Impression: Moderate oral pharyngeal dysphagia. Risk of Aspiration Due to: Neurological Condition Reduced Cognition Dysphasia Diet Status: Recommend continue on Puree (NDD1) with [place] Thick Liquids, pills crushed in puree. Liquid Consistency and Strategies for Safe Swallow: Liquid Intake Recommendation: [place] Thick Liquid Intake Strategies: Small Sips No Straws Solid Food Consistency: Dietary Recommendations: Pureed (NDD1) Additional Modifications to Solid Foods: Pt requires total 1:1 assistance feeding and aspiration precautions. Minimize distractions during meals. Ensure pt is awake and alert for presentation of PO. Oral Medication Intake: Crushed with Puree Please contact the pharmacy regarding appropriate crushable or liquid drug formulations that are available whenever modified delivery is recommended. Compensatory Strategies and Precautions to be Taken for Safe Swallow: Sitting Upright (90 deg) No Straw Liquids from Cup Liquids from Spoon Small Bites and Sips Rate of Ingestion Change Oral Check Supervision While Eating and Drinking for Safe Swallow: Total Assistance (1:1) Foods to Avoid: Swallowing Recommended Treatments: Compens. Strategy Educat. Recommendation for Speech: Inpatient Speech Therapy Comment: Patient was sleeping at onset of session with breakfast tray at bedside. PESTICIDE APPLICATOR reported that she had attempted breakfast, but patient spat out eggs given. Patient woke to greeting, lights were put on in room, head of bed raised to 90 Degrees. Patient throughout session, waxed and waned in alertness, at times was still clearly responsive but keeping eyes closed. Patient was given tsp amounts of Glucerna Shake, with good labial stripping of spoon, mild delay of oral transit and mild delay initiating swallow noted. Patient took 5 tsps of the shake with similar responses, no clinical signs of aspiration. Patient was given cup sip of shake, with patient slurping the liquid from cup, presented with a disorganized oral phase, followed by a mild delay initiating swallow. Pt when offered eggs clearly stated no. Pt was offered bite of rice cereal from fork, stripped fork well, produced a mildly disorganized oral phase, mild delay of swallow, no clinical signs of aspiration. Patient took three bites of cereal. Pt then appeared too lethargic to eat, did not open eyes or respond when requested, meal was discontinues. Dr. Wall was present at end, expressed concern about nectar thick liquids due to sodium issues. Reported to the MD about thin liquid trials yesterday and coughing/aspiration signs noted. Would not recommend advancing diet liquids at this time. Recommend continue on Puree (NDD1) with [place] Thick Liquids, pills crushed in puree. Frequency/Duration: Date Range for Service Req: Timeline to reassess: Strip Presser Clinican/Clinical Fellow: No Supervisory Statement: I have reviewed and agree with the student/clinical fellow's documentation: No Speech Language Pathologist: Yvette Green M.A., CCC-BEVERAGE SALES CONSULTANT
[2022-07-11 11:37] VITALS: BP 162/70; PULSE 77; RESP 18; TEMP 36.1; O2SAT 100
[2022-07-11 12:34] LABS: Glucose, Whole Blood 170 mg/dL (60-115)
--- NOTE | 2022-07-11 14:31 | P.PNIM_ITS ---
Subjective Subjective Date of Service: 07/11/22 Physical Exam Vital Signs: Vital Signs: Last Vital Signs Temp 96.9 F 07/11/22 11:37 Pulse 77 07/11/22 11:37 Resp 18 07/11/22 11:37 BP 162/70 H 07/11/22 11:37 Pulse Ox 100 07/11/22 11:37 O2 Del Method 07/11/22 11:37 O2 Flow Rate 2 07/11/22 11:37 BMI result Body Mass Index 28.1 Objective Data Active Medications Acetaminophen (Acetaminophen 325 Mg Tablet) 650 mg PO Q6H PRN PRN Reason: Pain, Mild (Pain Scale 1-3) Allopurinol (Allopurinol 300 Mg Tablet) 300 mg PO DAILY [facility] Last Admin: 07/11/22 08:27 Dose: 300 mg Documented By: RAJENDRA Apixaban (Apixaban 5 Mg Tablet) 5 mg PO BID [facility] Last Admin: 07/11/22 08:27 Dose: 5 mg Documented By: RAJENDRA Bacitracin (Bacitracin Oint 14 Gm Tube) 1 appl TOPICAL DAILY@10 [facility]; Protocol Last Admin: 07/11/22 08:30 Dose: 1 appl Documented By: RAJENDRA Dextrose (Dextrose 50 % 25 Gm/50 Ml Syringe) 25 gm IVPUSH Q15M PRN; Protocol PRN Reason: per Hypoglycemia Standing Ord. Dextrose (Dextrose 50 % 25 Gm/50 Ml Syringe) 25 gm IVPUSH Q15M PRN; Protocol PRN Reason: per Hypoglycemia Standing Ord. Docusate Sodium (Docusate Sodium 100 Mg Capsule) 100 mg PO DAILY PRN PRN Reason: Constipation Escitalopram Oxalate (Escitalopram Oxalate 10 Mg Tablet) 10 mg PO DAILY [facility] Last Admin: 07/11/22 08:27 Dose: 10 mg Documented By: RAJENDRA Glucose (Glucose Gel 15 Gm Gel..Gram.) 15 gm PO Q15M PRN; Protocol PRN Reason: per Hypoglycemia Standing Ord. Glucose (Glucose Gel 15 Gm Gel..Gram.) 15 gm PO Q15M PRN; Protocol PRN Reason: per Hypoglycemia Standing Ord. Ceftriaxone Sodium 1 gm/ (Sodium Chloride) 50 mls @ 100 mls/hr IV Q24H [facility] Last Infusion: 07/11/22 07:19 Dose: 0 mls/hr Documented By: JD Insulin Human Lispro (Insulin Lispro 100 Unit/Ml 3 Ml Vial) 0 unit SUBCUT QIDACHS [facility]; Protocol Last Admin: 07/11/22 12:36 Dose: Not Given Documented By: JD Non-Admin Reason: poor po Lisinopril (Lisinopril 5 Mg Tablet) 5 mg PO DAILY [facility]; Protocol Last Admin: 07/11/22 08:27 Dose: 5 mg Documented By: RAJENDRA Metoprolol Succinate (Metoprolol Succinate Er 50 Mg Tab.Er.24h) 50 mg PO DAILY [facility]; Protocol Last Admin: 07/11/22 08:28 Dose: 50 mg Documented By: RAJENDRA Multi-Ingred Cream/Lotion/Oil/Oint (Mineral Oil/Petrolatum,White 106 Gm Tube) 1 appl TOPICAL BID [facility] Last Admin: 07/11/22 08:30 Dose: 1 appl Documented By: RAJENDRA Multivitamins/Vitamin C (Multivitamin Tablet) 1 tab PO DAILY [facility] Last Admin: 07/11/22 08:26 Dose: 1 tab Documented By: RAJENDRA Nystatin (Nystatin Powder 15 Gm Bottle) 1 appl TOPICAL DAILY [facility]; Protocol Last Admin: 07/11/22 08:31 Dose: 1 appl Documented By: RAJENDRA Ondansetron HCl (Ondansetron Hcl 4 Mg/2 Ml Vial) 4 mg IVPUSH Q8H PRN PRN Reason: Nausea and Vomiting Polyethylene Glycol (Polyethylene Glycol 3350 17 Gm Powd.Pack) 17 gm PO DAILY [facility] Last Admin: 07/11/22 08:29 Dose: 17 gm Documented By: RAJENDRA Sodium Chloride (0.9 % Sodium Chloride Flush 3 Ml Syringe) 3 ml IVFLUSH QSHIFT [facility] Last Admin: 07/11/22 08:32 Dose: Not Given Documented By: RAJENDRA Non-Admin Reason: IV Running Tamsulosin HCl (Tamsulosin Hcl 0.4 Mg Capsule) 0.4 mg PO BEDTIME [facility] Last Admin: 07/10/22 21:17 Dose: 0.4 mg Documented By: NAVA Labs CBC & Chem 7: 07/09/22 05:52 07/10/22 18:05 Labs: Laboratory Results - last 24 hr 10/12/22 10/12/22 10/12/22 16:44 18:05 20:46 Anion Gap 14 POC Glucose 142 H 187 H 07/11/22 07/11/22 07:39 11:45 Anion Gap POC Glucose 160 H 170 H Assessment and Plan (1) Acute UTI: Status: Acute (2) E coli bacteremia: Status: Acute Plan 77-year-old female with a history of underlying dementia presents the hospital w ith worsening altered mental status Toxic metabolic encephalopathy secondary to E coli bacteremia, E coli urinary tract infection likely mentation is near baseline urine and blood culture grew E coli sensitive to ceftriaxone Abdominal ultrasound obtained report pending normal renal function continue IV ceftriaxone day 6 and transition to by mouth Ceftin upon discharge for total 14 days Hypernatremia Sodium 151 on 07/09 repeat sodium 146 , encourage by mouth fluid repeat BMP and adjust IV fluids Patient on pureed and nectar thick diet being followed by speech to see if liquids can be downgraded to thin Hypertension Elevated blood pressure , continue metoprolol , at home takes Lasix 40 mg b.i.d. currently on hold since appear dehydrated, will place on lisinopril 5 mg daily follow BP Diabetes mellitus Blood sugars around 200, continue Sliding scale, ADA diet and Lantus Chronic Normocytic anemia No bleeding , hematocrit stable Atrial fibrillation on metoprolol and Eliquis DVT prophylaxis with Eliquis DNR DNI Disposition plan for back to [facility] once medically cleared continue hospitalization for treatment of E coli bacteremia and UTI necessitating IV antibiotics and further imaging studies Quality Stroke Does the patient have a stroke diagnosis?: No VTE Prior VTE?: No VTE Risk Level:: Medical - moderate - high VTE Device Contraindication: Treatment Not Indicated VTE Drug Contraindication: N/A - Med Ordered
[2022-07-11 16:00] VITALS: BP 170/70; PULSE 66; RESP 16; TEMP 36.1; O2SAT 98
[2022-07-11 16:18] LABS: Anion Gap 16 (12-20); Blood Urea Nitrogen 11 mg/dL (9-16); Carbon Dioxide 28 mmol/L (22-29); Chloride 105 mmol/L (96-108); Creatinine Clr Calc Pharmacy 106.8; Estimated Glomerular Filt Rate > 60; Glucose Random 198 mg/dL (60-115); Potassium 4.6 mmol/L (3.3-5.1); Sodium 144 mmol/L (135-145)
[2022-07-11 17:06] LABS: Glucose, Whole Blood 162 mg/dL (60-115)
[2022-07-11 20:00] VITALS: BP 184/80; PULSE 68; RESP 16; TEMP 36.4; O2SAT 100
[2022-07-11 20:23] LABS: Glucose, Whole Blood 200 mg/dL (60-115)
[2022-07-11] MEDS: Tamsulosin HCL 0.4 MG CAPSULE PO (20:29)
[2022-07-12] VITALS: BP 172/74; PULSE 69; RESP 18; TEMP 36.2; O2SAT 98
[2022-07-12] MEDS: 0.9 % Sodium Chloride Flush 3 ML SYRINGE IVFLUSH ×2 (00:09→10:29)
[2022-07-12 03:51] VITALS: BP 158/68; PULSE 55; RESP 18; TEMP 36; O2SAT 98
[2022-07-12] MEDS: cefTRIAXone sodium 1 GM in 0.9 % Sodium Chloride 50 ML IV (06:12)
[2022-07-12 07:17] LABS: Anion Gap 12 (12-20); Blood Urea Nitrogen 11 mg/dL (9-16); Calcium 9.2 mg/dL (8.4-10.2); Carbon Dioxide 35 mmol/L (22-29); Chloride 102 mmol/L (96-108); Creatinine Clr Calc Pharmacy 116.1; Estimated Glomerular Filt Rate > 60; Glucose Random 144 mg/dL (60-115); Potassium 3.9 mmol/L (3.3-5.1); Sodium 145 mmol/L (135-145)
[2022-07-12 07:35] LABS: Glucose, Whole Blood 133 mg/dL (60-115)
[2022-07-12 08:00] VITALS: BP 160/70; PULSE 72; RESP 18; TEMP 36.2; O2SAT 97
[2022-07-12] MEDS: polyethylene glycoL 3350 17 GM POWD.PACK PO (10:29)
[2022-07-12] MEDS: Apixaban 5 MG TABLET PO (10:30)
[2022-07-12] MEDS: Multivitamin TABLET 1 TAB PO (10:30)
[2022-07-12] MEDS: Escitalopram Oxalate 10 MG TABLET PO (10:30)
[2022-07-12] MEDS: allopurinoL 300 MG TABLET PO (10:30)
[2022-07-12] MEDS: lisinopriL 5 MG TABLET PO (10:30)
[2022-07-12] MEDS: Metoprolol Succinate ER 50 MG TAB.ER.24H PO (10:30)
[2022-07-12] MEDS: Mineral Oil/Petrolatum,White 106 GM Tube 1 APPL TOPICAL (10:31)
[2022-07-12] MEDS: Bacitracin Oint 14 GM TUBE 1 APPL TOPICAL (10:31)
[2022-07-12] MEDS: Nystatin Powder 15 GM BOTTLE 1 APPL TOPICAL (10:31)
--- NOTE | 2022-07-12 10:50 | MHC.SL.SWA ---
Speech Pathologist Impression: Oropharyngeal phase dysphagia Risk of Aspiration Due to: Neurological Condition Reduced Cognition Dysphasia Diet Status: Recommend continue on Puree (NDD1) with [place] Thick Liquids, pills crushed in puree. Liquid Consistency and Strategies for Safe Swallow: Liquid Intake Recommendation: [place] Thick Liquid Intake Strategies: Small Sips No Straws Solid Food Consistency: Dietary Recommendations: Pureed (NDD1) Additional Modifications to Solid Foods: Recommend continue with PUREED (NDD1) diet and NECTAR THICK liquids, pills CRUSHED in PUREE. Pt requires total 1:1 assistance feeding and aspiration precautions. Minimize distractions during meals. Ensure pt is awake and alert for presentation of PO. No changes made to diet order at this time. Oral Medication Intake: Crushed with Puree Please contact the pharmacy regarding appropriate crushable or liquid drug formulations that are available whenever modified delivery is recommended. Compensatory Strategies and Precautions to be Taken for Safe Swallow: Sitting Upright (90 deg) No Straw Liquids from Cup Liquids from Spoon Small Bites and Sips Rate of Ingestion Change Oral Check Supervision While Eating and Drinking for Safe Swallow: Total Assistance (1:1) Swallowing Recommended Treatments: Compens. Strategy Educat. Recommendation for Speech: Inpatient Speech Therapy Comment: Pt w/ underlying dementia. Frequency/Duration: Date Range for Service Req: Timeline to reassess: Manufacturing Management Associate Clinican/Clinical Fellow: Yes: Loy Ledesma Supervisory Statement: I have reviewed and agree with the student/clinical fellow's documentation: No Speech Language Pathologist: Roselyn Condon M.A., CCC-TICK INSPECTOR
--- NOTE | 2022-07-12 11:14 | MHC.CLN ---
F/U PATIENT WITH INCREASED NUTRITIONAL NEEDS DUE TO STAGE II WOUND TO BUTTOCK. DIET=DIABETIC 1800 KCALS, PUREE CONSISTENCY, NECTAR THICK LIQUIDS. GLUCERNA TID (700 KCALS, 30 G PROTEIN) TO PROMOTE WOUND HEALING. CONTINUES WITH VARIABLE INTAKE, 25-100%. PER TRAIN OPERATIONS SUPERVISOR, 1:1 FEEDNG ASSISTANCE. FOLLOW FOR INTAKE AND WOUND HEALING.
[2022-07-12 11:16] VITALS: BP 140/74; PULSE 72; RESP 18; TEMP 37.1; O2SAT 100
--- NOTE | 2022-07-12 11:21 | P.DS_ITS ---
DS: Providers Provider Date of Service: 07/12/22 Date of admission: 07/06/22 05:15 Primary care physician: FILOMENA HENAO Consults: 07/08/22 12:38 Consult to Infectious Diseases Routine Consulting Provider: Makayla Lantigua Reason for consultation: ecoli bacteremia/uti Has provider been notified: No DS: Diagnosis Discharge Diagnosis (1) Acute UTI: Status: Acute (2) E coli bacteremia: Status: Acute DS: Summary Hospital Course Hospital Course: History of presenting illness Date of Service: 07/06/22 Chief Complaint: Altered mentation 77-year-old female with history of AFib, dementia, diabetes, history of GI bleed, HLD, HTN comes into the hospital from residential facility for worsening altered mental status.? Patient initially was only responsive to sternal rub,Staff from the nursing facility reported to EMS that the patient has been deteriorating for the last couple of weeks.? Patient currently is awake, not tracking with her eyes, not following command, not answer questions appropriately. I am unable to obtain review of system is patient is not responding to any my questions On arrival to the ED patient found to have a temp of a 100.9 degrees, heart rate of 102, blood pressure 188/75 Labs are significant for WBC count of 6.6, sodium a 149, troponin of 38, albumin 3.1, UA that is positive for nitrites, leukocyte Estrace, WBC, Chest x-ray shows increasing bibasilar opacities with possible small pleural effusion, reflecting possible pulmonary edema. Hospital course: 77-year-old female with a history of underlying dementia presents the hospital with worsening altered mental status Toxic metabolic encephalopathy secondary to E coli bacteremia, E coli urinary tract infection, mentation seems to be at baseline,urine and blood culture grew E coli sensitive to ceftriaxone Abdominal ultrasound showed no renal obstruction and showed bilateral renal cortical thinning renal function is normal, patient treated with 7 days of IV ceftriaxone now being discharged home on 500 mg b.i.d. of Ceftin for total 14 day antibiotics patient was followed closely by speech therapy and the continue to recommend pureed and nectar thick liquid patient dependent on feedings. Hypernatremia resolved with IV fluids Lasix was held, recommend to push fluids and dose of Lasix reduced to 40 mg by mouth daily Hypertension Noted to have Elevated blood pressure , dose of metoprolol increased to 50 mg and lisinopril 5 mg added continue Lasix 40 mg by mouth daily dose reduced from 40 mg b.i.d. Diabetes mellitus Blood sugars around 200, continue ADA diet and dose of insulin reduced Chronic Normocytic anemia No bleeding , hematocrit stable Atrial fibrillation on metoprolol and Eliquis Time Spent with Patient Time attestation: Total time spent providing and/or coordinating discharge services: Discharge coordination time: Greater than 30 minutes Quality: Safe Use of Opioids Does Pt have an Active Cancer Diagnosis on the Problem List?: No Quality: Stroke Does the patient have a stroke diagnosis?: No Physical Exam Vital Signs: Vital Signs: Last Vital Signs Temp 97.1 F 07/12/22 08:00 Pulse 72 07/12/22 08:00 Resp 18 07/12/22 08:00 BP 160/70 H 07/12/22 08:00 Pulse Ox 97 07/12/22 08:00 O2 Del Method 07/12/22 08:00 O2 Flow Rate 2 07/12/22 08:00 BMI result Body Mass Index 28.1 Const: Other: General Awake an rt,in no acute dis tress ?Neck no JVD ?Anicteric sclera ?Lungs clear to a uscultation no whe aime, no crackles ? heart regular rate rhythm, clear? S1 , S2 ?Abdomen soft nontender bowel s ounds audible ?edward ro moving all 4 ex tremities, awake a lert, does not pierce balize ?Psych poor insight DS: Data Data Completed and Pending Labs on day of discharge: Laboratory Results - last 24 hr 07/11/22 07/11/22 07/11/22 11:45 15:42 16:20 Sodium 144 Potassium 4.6 D Chloride 105 Carbon Dioxide 28 Anion Gap 16 BUN 11 Creatinine 0.50 Estim Creat Clear Calc 106.8 Estimated GFR > 60 POC Glucose 170 H 162 H Random Glucose 198 H Calcium 9.0 D 07/11/22 07/12/22 07/12/22 20:18 05:48 07:17 Sodium 145 Potassium 3.9 Chloride 102 Carbon Dioxide 35 H Anion Gap 12 BUN 11 Creatinine 0.46 L Estim Creat Clear Calc 116.1 Estimated GFR > 60 POC Glucose 200 H 133 H Random Glucose 144 H Calcium 9.2 Discharge Plan Discharge Anticipated Discharge Date/Time: 07/12/22 11:08 Patient Disposition: Xfer SNF Discharge Diagnosis: Toxic metabolic encephalopathy E coli bacteremia due to UTI Referrals: FILOMENA HENAO [Primary Care Provider] - 1 Week Discharge Medications: New metoprolol succinate 50 mg Tablet Extended Release 24 Hr 50 mg PO DAILY Qty: 30 0RF Protocol: Hold for SBP/HR < HOLD for SBP < : 90 HOLD for HR < : 60 lisinopril 5 mg Tablet 5 mg PO DAILY Qty: 30 0RF Protocol: Hold for SBP< HOLD for SBP < : 90 cefuroxime axetil 500 mg tablet 500 mg PO Q12H Qty: 16 0RF Continued acetaminophen 325 mg Tablet 650 mg PO Q4H PRN (Reason: Fever Or Pain) Rx Instructions: PAIN/FEVER polyethylene glycol 3350 [Miralax] 17 gram/dose Powder 17 g PO DAILY escitalopram oxalate 10 mg tablet 1 tab PO DAILY cholecalciferol (vitamin D3) [Vitamin D3] 25 mcg (1,000 unit) Tablet 25 mcg PO DAILY Eliquis 5 mg tablet 1 tab PO BID multivitamin Tablet 1 tab PO DAILY allopurinol 300 mg tablet 1 tab PO DAILY nystatin [Nystop] 100,000 unit/gram powder 1 appl topical DAILY Rx Instructions: APPLY UNDER RIGHT BREAST AND KEEP DRY ondansetron HCl 4 mg Tablet 4 mg PO Q8H PRN (Reason: Nausea And Vomiting) DermaPhor Ointment 1 appl TOPICAL BID Rx Instructions: franklin/buttocks bacitracin 500 unit/gram Ointment 1 appl TOPICAL DAILY@10 Rx Instructions: AFTER CLEANSING RIGHT GREAT TOE NAIL BED Changed insulin glargine [Basaglar KwikPen U-100 Insulin] 100 unit/mL (3 mL) insulin pen 15 unit subcut BEDTIME Qty: 15 0RF furosemide 40 mg tablet 40 mg PO DAILY Qty: 10 0RF Discontinued metoprolol succinate 25 mg tablet extended release 24 hr 1 tab PO DAILY Discharge Orders: Discharge Order (Routine); Ordered 07/12/22 Ordered By: Soraya Wall Diet: Diabetic diet Activity on Discharge: As tolerated Stand Alone Forms: Patient Portal Discharge page Care Plan Goals: E coli bacteremia take 8 more days of Ceftin 500 mg twice daily, encephalopathy resolved, noted to have hypernatremia improved with IV fluids dose of Lasix reduced to 40 mg by mouth daily noted to have high blood pressure therefore dose of metoprolol increased to 50 mg daily and lisinopril 5 mg by mouth daily added Health Concerns: Continue home medications as above Plan of Treatment: Outpatient follow-up with primary care physician check BMP in 1 week, continue nectar thick liquids and pureed diet. Assessment: As above
[2022-07-12 11:32] LABS: Glucose, Whole Blood 175 mg/dL (60-115)
--- NOTE | 2022-07-12 11:58 | MHC.CM.PN ---
Addendum entered by Makenzie Cohn 07/12/22 12:49: DC SUMMARY AND NEGATIVE COVID RESULTS SENT TO [facility]IA [facility] Original Note: PT CLEARED TO RETURN TO [facility] TODAY TRANSPORT VIA [facility] AMBULANCE SCHEDULED FOR 1300 HOURS PTS /HCP, MUNIRA ([phone]) INFORMED VIA T/C
[2022-07-12 12:35] LABS: COVID-19 Test Negative (Negative); IDNOW Serial# 16C4AD1C
--- NOTE | 2022-07-12 13:31 | PC.NURSE ---
Alert and responsive. VSS, afebrile, no acute resp. distress noted. Took all schedule meds as ordered. Fail swallow eval, remained nectar thick. New order to discharge patient to short term rehab facility. Report given to catalogue compiler. patient left via stretcher accompanied by 4EMTs.
--- NOTE | 2022-07-15 12:13 | P.CDIR_ITS ---
Documented by User: Daniella Mcclure CCS, CDIS 07/15/22 12:21 Retrospective Query PHYSICIAN'S DOCUMENTATION REQUEST Date of Query: 07/15/22 1213 Patient Name: Lesly Márquez Admit Date: 07/06/22 Dear Doctor, A review of the medical record indicates additional documentation may be needed. Please review below and update the documentation accordingly. Risk Factors/Clinical Indicators/Treatments ED: 07/06 - Sepsis ? IV antibiotics, IV fluids. H&P: 07/06 - Assessment/plan: Sepsis secondary to UTI. Temp 100.9 HR 102 BP 188/75 UA + nitrites, leukocytes, wbc. D/S 07/12 - UTI, E coli, Bacteremia. Please clarify which of the following most accurately describes the above abnormalities: Resolved, Treating Sepsis, ruled out, poa etc. * Sepsis * Systemic manifestations of infection, with 2 or more SIRS criteria which include: -Fever > 100.4F or hypothermia < 96.8 F -Leukocytosis - WBC > 12,000 or leukopenia, WBC < 4,000 or > 10% bands -Tachycardia > 90 beats/minute -Tachypnea - RR > 20 breaths/minute or PaCO2 < 32mmHg (Source: Merck Manual 2013) * Indicate the knows or suspected organism * Indicate the known or suspected underlying infection, such as UTI, pneumonia, or cellulitis * Indicate if a suspected bacteria infection of unknown source * Indicate if associated with an implanted device such as a F/C, PICC line, orthopedic hardware, etc * Indicate if there is associated organ dysfunction, such as renal or respiratory failure * Other * Unable to determine Use of terms such as suspected, likely, concern for, or probable (associated with a specific diagnosis that is being evaluated, monitored, or treated as if it exists) are acceptable and can be coded in the inpatient setting, when documented at the time of discharge. Thank you, Daniella Mcclure CCS, CDIS Extension: [phone] Please use your independent medical judgment in providing your response. THIS QUERY IS PART OF THE PERMANENT MEDICAL RECORD Documented by User: Soraya Wall MD 07/26/22 16:12 Retrospective Query Provider Response: Sepsis
== END 2022-07-12 13:20 | disposition skilled nursing facility (03) | DRG 871 ==
LOC: HO.ED 07-06 01:40 → HO.EDOVER 07-06 05:22 → HO.S3 07-06 14:47
PROVIDERS: Internal Medicine; Nurse Practitioner Acute Care; Admitting Provider Internal Medicine; Emergency Provider Emergency Medicine; PCP Emergency Medicine; Visit Provider Hospitalist
DX: A41.9 Sepsis, unspecified organism (principal); G92.8 Other toxic encephalopathy; N39.0 Urinary tract infection, site not specified; I16.9 Hypertensive crisis, unspecified; E87.0 Hyperosmolality and hypernatremia; Z66 Do not resuscitate; E87.5 Hyperkalemia; M10.9 Gout, unspecified; E78.00 Pure hypercholesterolemia, unspecified; I48.91 Unspecified atrial fibrillation; E11.9 Type 2 diabetes mellitus without complications; I10 Essential (primary) hypertension; D64.9 Anemia, unspecified; L89.302 Pressure ulcer of unspecified buttock, stage 2; B96.20 Unspecified Escherichia coli [E. coli] as the cause of diseases classified elsewhere; F03.90 Unspecified dementia, unspecified severity, without behavioral disturbance, psychotic disturbance, mood disturbance, and anxiety; R33.9 Retention of urine, unspecified; Z20.822 Contact with and (suspected) exposure to COVID-19; Z88.0 Allergy status to penicillin; Z88.8 Allergy status to other drugs, medicaments and biological substances; Z79.4 Long term (current) use of insulin; Z79.01 Long term (current) use of anticoagulants; Z79.899 Other long term (current) drug therapy
CPT/HCPCS: 36415; 70450; 71045; 76700; 80048; 80051; 80076; 81001; 82140; 82947; 83605; 83690; 83880; 84295; 84443; 84484; 85025; 85027; 87040; 87077; 87086; 87088; 87186; 87205; 87635; 92526; 92610; 93005; 97162; 99285; J0696

== ENCOUNTER 2022-09-16 11:16 | Inpatient (IN) | payer MEDICARE, SELFPAY ==
[2022-09-16] VITALS (9 sets, daily range): BP systolic 139–202; BP diastolic 68–103; PULSE 81–108; RESP 12–25; TEMP 36.4–38.5; O2SAT 84–100; BMI 27.1
--- NOTE | ~2022-09-16 | CT_ITS ---
EXAMINATION: CT ANGIOGRAM OF THE CHEST WITH AND WITHOUT CONTRAST (CT PULMONARY ANGIOGRAM FOR PE) CT ABDOMEN AND PELVIS WITH IV CONTRAST CLINICAL INFORMATION: Hypoxia, fever. Sepsis. COMPARISON: 07/06/2022 TECHNIQUE: Prior to contrast administration, noncontrast localization images were obtained. Subsequently, multidetector volumetric imaging was performed from the thoracic inlet to the pubic symphysis through the chest, abdomen, and pelvis following the administration of 85 mL Omnipaque 350 intravenous contrast. No contrast reaction reported Sagittal, coronal, and MIP oblique sagittal (through the chest only) reformatted images were obtained on the CT workstation, uploaded to PACS, and reviewed. Total exam dose-length product 1214 loss 513 mGy-cm This CT examination was performed using dose optimization techniques as appropriate, variously including the following: *Automated exposure control *Adjustment of mA and/or kV according to patient size (this includes techniques or standardized protocols for targeted exams where dose is matched to indication/reason for exam; i.e. extremities or head) *Use of iterative reconstruction technique FINDINGS: QUALITY OF STUDY/CONTRAST BOLUS: Satisfactory. PULMONARY ARTERIES: No central or segmental pulmonary emboli. THORACIC AORTA: No aneurysm or dissection. LUNG: There is right lower lobe atelectasis/collapse with material filling the right bronchus intermedius. Mild atelectasis at the left lung base. PLEURA: Trace pleural effusions. No pneumothorax. MEDIASTINUM: Heart size upper limits of normal. No pericardial effusion. No evidence of septal bowing or right heart strain. CHEST WALL/AXILLA: No axillary or internal mammary lymphadenopathy. ABDOMEN/PELVIS: LIVER, GALLBLADDER AND BILIARY TREE: Nodular hepatic contour suggests cirrhosis. No focal lesion seen on single phase imaging. Gallbladder is distended but no gallbladder wall thickening or pericholecystic fluid. PANCREAS: Diffuse pancreatic atrophy. SPLEEN: Normal size. No focal lesion. ADRENAL GLANDS: 1.3 cm left adrenal nodule. The density is greater than 10 Hounsfield units, indeterminate. This was present on the prior study 12/10/2020, unchanged. The lack of interval increase suggests a benign etiology. No right adrenal nodule. KIDNEYS AND URETERS: Multiple areas of left renal cortical thinning are seen suggesting scarring. Simple right renal cyst for which no imaging follow-up is recommended. GASTROINTESTINAL TRACT: Stomach and small bowel are nondilated. No colonic wall thickening or pericolonic inflammatory changes. Moderate volume of stool in the rectum. No evidence of stercoral colitis. Although the appendix is not definitely seen, there are no right lower quadrant inflammatory changes to suggest acute appendicitis. ABDOMINAL WALL: Small fat-containing umbilical hernia. LYMPHOVASCULAR STRUCTURES: No lymphadenopathy. The aorta is unremarkable. BLADDER: Bladder is collapsed with circumferential wall thickening and irregularity. Cueva catheter in place. There is gas in the bladder. PELVIC VISCERA: Unremarkable. OSSEOUS STRUCTURES: Extensive multilevel degenerative changes. Grade 1 anterolisthesis of L4 on L5. Lower lumbar facet arthropathy. CT/CT abdomen pelvis w IV con IMPRESSION: No pulmonary embolus seen. Right lower lobe atelectasis/collapse with material in the right bronchus intermedius suspicious for aspiration. Circumferential bladder wall thickening and irregularity of the urinary bladder with a Cueva catheter in place. Cystitis could give this appearance. Recommend correlation with urinalysis. Indeterminate 1.3 cm left adrenal nodule. It is not convincingly changed in size since November 2020. The greater than 1 year of stability suggests a benign etiology. Consider nonemergent adrenal protocol CT follow-up for definitive evaluation. VTE: negative
--- NOTE | 2022-09-16 11:45 | ECG_ITS ---
Test Reason : hypoxia Blood Pressure : / mmHG Vent. Rate : 105 BPM Atrial Rate : 000 BPM P-R Int : 000 ms QRS Dur : 094 ms QT Int : 352 ms P-R-T Axes : 000 -15 171 degrees QTc Int : 465 ms Atrial fibrillation with rapid ventricular response Minimal voltage criteria for LVH, may be normal variant ( [place] product ) ST & T wave abnormality, consider lateral ischemia Abnormal ECG When compared with ECG of 06-JUL-2022 00:40, Lateral ST changes present. Referred By: Chito South Electronically Signed By:Estuardo Roth
--- NOTE | 2022-09-16 11:46 | ED.GENADULT ---
HPI - General Adult General Chief complaint: Failure to Thrive Stated complaint: DIFF SWALLOWING FROM SNF PER EMS Time Seen by Provider: 09/16/22 11:29 Source: EMS and RN notes reviewed (From [facility]) Limitations: other (Patient is apparently nonverbal at baseline) History of Present Illness HPI narrative: Patient presents from [facility]. Apparently decreased p.o. intake and failure to thrive. No further history is available at this time Related Data Home Medications Medication Instructions Recorded Confirmed acetaminophen 325 mg tablet 650 mg PO Q4H PRN Fever Or Pain 05/29/22 07/06/22 allopurinol 300 mg tablet 1 tab PO DAILY 05/29/22 07/06/22 apixaban 5 mg tablet (Eliquis) 1 tab PO BID 05/29/22 07/06/22 cholecalciferol (vitamin D3) 25 25 mcg PO DAILY 05/29/22 07/06/22 mcg (1,000 unit) tablet (Vitamin D3) escitalopram oxalate 10 mg tablet 1 tab PO DAILY 05/29/22 07/06/22 multivitamin 1 tab PO DAILY 05/29/22 07/06/22 nystatin 100,000 unit/gram topical 1 appl topical DAILY 05/29/22 07/06/22 powder (Nystop) ondansetron HCl 4 mg tablet 4 mg PO Q8H PRN Nausea And Vomiting 05/29/22 07/06/22 polyethylene glycol 3350 17 17 g PO DAILY 05/29/22 07/06/22 gram/dose oral powder (Miralax) bacitracin 500 unit/gram topical 1 appl topical DAILY@10 07/06/22 07/06/22 ointment mineral oil-hydrophil petrolat 1 appl topical BID 07/06/22 07/06/22 topical ointment (DermaPhor topical ointment) Previous Rx's Medication Instructions Recorded cefuroxime axetil 500 mg tablet 500 mg PO Q12H #16 tabs 07/12/22 furosemide 40 mg tablet 40 mg PO DAILY #10 tabs 07/12/22 insulin glargine 100 unit/mL (3 15 unit (0.15 mL) subcut BEDTIME 07/12/22 mL) subcutaneous pen (Basaglar #15 mL KwikPen U-100 Insulin) lisinopril 5 mg tablet 5 mg PO DAILY #30 tabs 07/12/22 metoprolol succinate 50 mg 50 mg PO DAILY #30 tabs 07/12/22 tablet,extended release 24 hr Allergies Allergy/AdvReac Type Severity Reaction Status Date / Time Penicillins Allergy Mild UNKNOWN Verified 05/29/22 00:54 erythromycin base Allergy Unknown UNKNOWN Verified 05/29/22 00:54 [ERYTHROMYCIN BASE] flecainide [FLECAINIDE] Allergy Unknown UNKNOWN Verified 05/29/22 00:54 Review of Systems Review of Systems: Unable to obtain [facility] Past Medical History Medical History Atrial fibrillation Dementia Diabetes GI bleed Gout High cholesterol Hypertension Family History Family History Mother No problems noted. Father No problems noted. Social History Social History Household Members: Other Household Members Other:: nsg home Housing: Skilled Nursing Do you presently have visiting nurse or other home services: No Unable to assess alcohol history related to: Unknown Alcohol intake: unknown Patient Tobacco Use Status: Refuse Tobacco use screen Second Hand Smoke Exposure: No Advance Directives: Yes Advance Directives on File: Yes Advance Directives Date on File: 12/13/20 service: No Current occupational status: retired Physical Exam ED Vital Signs: Vital Signs - 24 hr 09/16/22 11:30 09/16/22 12:26 09/16/22 13:15 Temperature 101.3 F H 100.4 F 99.9 F Pulse Rate 107 H 97 90 Respiratory Rate 18 22 H 25 H Blood Pressure 190/103 H 145/96 H 180/86 H Pulse Oximetry 99 84 L 100 Oxygen Delivery Method Room Air Room Air Nasal Cannula Oxygen Flow Rate 09/16/22 13:18 09/16/22 14:36 09/16/22 15:16 Temperature 99.9 F Pulse Rate 90 82 84 Respiratory Rate 14 16 12 Blood Pressure 183/76 H 200/93 H Pulse Oximetry 99 100 Oxygen Delivery Method Nasal Cannula Nasal Cannula Oxygen Flow Rate 2 2 BMI result Body Mass Index 27.1 Const Other: Frail patient. His eyes open or verbal stimuli the patient is nonverbal. She does not follow commands. She is febrile and mildly tachycardic on vital signs. She is hypertensive. Neck Other: I can passively flex her neck without any obvious meningismus. Resp Other: Clear but diminished bilaterally Cardio Other: Tachycardic without obvious murmurs rubs or gallops GI Other: Soft nondistended. Patient does not grimace on palpation Skin Other: Patient with skin breakdown and what appears to be a large area of fungal, cutaneous candidiasis over buttocks and coccyx area. No purulence drainage. Neuro Other: Unable to cooperate with neuro exam Extrem Other: No obvious trauma or swelling Course Course Course Narrative: 13:05. Patient with temporary desaturation down to 84%. Improved with oxygen. Nebulizer, Solu-Medrol ordered. Urinalysis consistent with urinary tract infection is possible source. Await chest x-ray and respiratory panel as well. Sodium is 153. Suspect hypovolemic hypernatremia. Continue with IV normal saline 15:07. Workup shows CT scan revealing probable right-sided aspiration pneumonia. Otherwise no pulmonary embolism. Probable cystitis with urinalysis to confirmed urinary tract infection. Will hospitalized for further treatment. Despite her infection, she is still hypertensive with a blood pressure of 200/93. Given this, I will give her a dose of lisinopril. 10 mg instead of her typical 5 mg daily. Medications Administered Discontinued Medications Generic Name Dose Route Start Last Admin Trade Name Freq PRN Reason Stop Dose Admin Acetaminophen 650 mg 09/16/22 13:03 09/16/22 14:25 Acetaminophen Supp 650 Mg Supp.Rect UT 09/16/22 13:04 650 mg ONCE ONE Administration Albuterol/Ipratropium 3 ml 09/16/22 13:02 09/16/22 14:36 Albuterol/Iprat 2.5/0.5mg 3 Ml Ampul.Neb INHALE 09/16/22 13:03 3 ml ONCE ONE Administration Sodium Chloride 2,355 mls @ 2,355 mls/hr 09/16/22 11:39 09/16/22 13:15 Ns 30 ml/kg infuse over 1 hr (2355 ml) 09/16/22 12:38 Infused IV Infusion .Q1H STA Levofloxacin 500 mg in 100 mls @ 100 mls/hr 09/16/22 11:39 09/16/22 14:25 Levaquin IV 09/16/22 12:38 100 mls/hr ONCE ONE Administration Vancomycin HCl 2,000 mg in 520 mls @ 260 mls/hr 09/16/22 12:00 09/16/22 14:24 Vancomycin/Ns IV 09/16/22 13:59 Infused ONCE ONE Infusion Iohexol 100 ml 09/16/22 13:42 09/16/22 13:42 Iohexol 350 Mg/Ml 100 Ml Infus..Btl IV 09/16/22 13:43 85 ml ONCE ONE Administration Methylprednisolone Sodium Succinate 125 mg 09/16/22 13:02 09/16/22 14:24 Methylprednisolone Sod Succ 125 Mg/2 Ml Vial IVPUSH 09/16/22 13:03 125 mg ONCE ONE Administration Medical Decision Making Medical Decision Making MDM Narrative: Patient appears very frail at baseline presenting from [facility] with fever and decreased mentation with decreased p.o. intake. History of sepsis secondary to urinary tract infections in the past. Clinically no obvious source for fever at the moment. Will do a broad-based workup looking for source. CT scan of chest and abdomen. Urinalysis. Although she is not hypotensive, she does appear dry. Will order 30 cc/kilos bolus and broad-spectrum antibiotics including antifungals given her skin findings. She is allergic to penicillin so therefore will order a fluoroquinolone in conjunction with vancomycin. Will monitor QTC. Anticipate hospitalization Lab Data Result Diagrams: 09/16/22 11:45 09/16/22 11:45 Labs: Lab Results 09/16/22 09/16/22 09/16/22 Range/Units 11:45 11:45 11:45 WBC 9.8 (4.8-10.8) X10*3/uL RBC 5.74 H D (4.20-5.50) X10*6/uL Hgb 14.5 D (12.0-16.0) g/dl Hct 48.5 H D (37.0-47.0) % MCV 84.5 (80.0-98.0) fL MCH 25.3 L (27.0-33.0) pg MCHC 29.9 L (31.0-35.0) g/dl RDW 16.6 H (11.0-16.0) % Plt Count 300 D (160-400) X10*3/uL MPV 10.3 (9.4-12.3) fL Immature Gran % (Auto) 0.3 (0.0-0.4) % Neut % (Auto) 76.3 H (45-73) % Lymph % (Auto) 13.5 L (20-40) % [place] % (Auto) 8.5 (2-11) % Eos % (Auto) 0.8 (0-4) % Baso % (Auto) 0.6 (0-2) % Lymph # (Auto) 1.3 (1.2-4.9) X10*3/uL [place] # (Auto) 0.8 (0.1-1.2) X10*3/uL Eos # (Auto) 0.1 (0.0-0.4) X10*3/uL Baso # (Auto) 0.1 (0.0-0.2) X10*3/uL Abs Immat Gran (auto) 0.03 (0.00-0.03) X10*3/uL Absolute Neuts (auto) 7.5 (2.0-8.3) x10*3/uL Absolute Nucleated RBC 0.000 (0.0-0.012) X10*3/uL Nucleated RBC % (auto) 0.0 (0.0-0.2) /100WBC PT (10.0-13.1) SEC INR (0.9-1.1) D-Dimer High Sensitivty NG/ML Sodium 153 H (135-145) mmol/L Potassium 4.0 (3.3-5.1) mmol/L Chloride 110 H (96-108) mmol/L Carbon Dioxide 35 H (22-29) mmol/L Anion Gap 12 (12-20) BUN 15 (9-16) mg/dL Creatinine 0.60 (0.5-1.4) mg/dL Estim Creat Clear Calc 87.4 Estimated GFR > 60 Random Glucose 215 H (60-115) mg/dL Lactic Acid (0.5-2.0) mmol/L Calcium 10.0 D (8.4-10.2) mg/dL Total Bilirubin 0.7 (0.0-1.0) mg/dL AST 18 (5-31) U/L ALT 8 (0-31) U/L Alkaline Phosphatase 86 (39-117) U/L Ammonia 36 (13-55) umol/L Total Protein 6.1 L (6.5-8.0) g/dL Albumin 3.3 L (3.5-5.0) g/dL Urine Color Urine Appearance Urine pH (5.0-9.0) Ur Specific Hessel (1.005-1.025) Urine Protein (Neg-Trace) mg/dL Urine Glucose (UA) (Negative) mg/dL Urine Ketones (Negative) mg/dL Urine Blood (Negative) Urine Nitrite (Negative) Ur Leukocyte Esterase (Negative) Urine RBC (0-2) /HPF Urine WBC (0-5) /HPF Ur Squamous Epith Cells (0-2) /HPF Urine Bacteria (None Seen) Hyaline Casts (0-2) /LPF Respiratory Panel Rausch Adenovirus (Rapid PCR) (Not Detect.) B.pert (TEM-PCR) (Not Detect.) B.parapertussis DNA PCR (Not Detect.) C. pneumoniae DNA (PCR) (Not Detect.) Coronavirus OC43 (PCR) (Not Detect.) Coronavirus HKU1 (PCR) (Not Detect.) Coronavirus 229E (PCR) (Not Detect.) Coronavirus NL63 (PCR) (Not Detect.) Human Metapneumovir PCR (Not Detect.) Influenza A (RT-PCR) (Not Detect.) Influenza B (RT-PCR) (Not Detect.) M. pneumoniae (PCR) (Not Detect.) Parainfluenza 1 (PCR) (Not Detect.) Parainfluenza 2 (PCR) (Not Detect.) Parainfluenza 3 (PCR) (Not Detect.) Parainfluenza 4 (PCR) (Not Detect.) RSV (PCR) (Not Detect.) Entero/Rhino (PCR) (Not Detect.) SARS-CoV-2 RNA (RT-PCR) (Not Detect.) 09/16/22 09/16/22 09/16/22 Range/Units 11:45 11:45 12:08 WBC (4.8-10.8) X10*3/uL RBC (4.20-5.50) X10*6/uL Hgb (12.0-16.0) g/dl Hct (37.0-47.0) % MCV (80.0-98.0) fL MCH (27.0-33.0) pg MCHC (31.0-35.0) g/dl RDW (11.0-16.0) % Plt Count (160-400) X10*3/uL MPV (9.4-12.3) fL Immature Gran % (Auto) (0.0-0.4) % Neut % (Auto) (45-73) % Lymph % (Auto) (20-40) % [place] % (Auto) (2-11) % Eos % (Auto) (0-4) % Baso % (Auto) (0-2) % Lymph # (Auto) (1.2-4.9) X10*3/uL [place] # (Auto) (0.1-1.2) X10*3/uL Eos # (Auto) (0.0-0.4) X10*3/uL Baso # (Auto) (0.0-0.2) X10*3/uL Abs Immat Gran (auto) (0.00-0.03) X10*3/uL Absolute Neuts (auto) (2.0-8.3) x10*3/uL Absolute Nucleated RBC (0.0-0.012) X10*3/uL Nucleated RBC % (auto) (0.0-0.2) /100WBC PT 20.1 H (10.0-13.1) SEC INR 1.7 H (0.9-1.1) D-Dimer High Sensitivty 275 NG/ML Sodium (135-145) mmol/L Potassium (3.3-5.1) mmol/L Chloride (96-108) mmol/L Carbon Dioxide (22-29) mmol/L Anion Gap (12-20) BUN (9-16) mg/dL Creatinine (0.5-1.4) mg/dL Estim Creat Clear Calc Estimated GFR Random Glucose (60-115) mg/dL Lactic Acid 1.6 (0.5-2.0) mmol/L Calcium (8.4-10.2) mg/dL Total Bilirubin (0.0-1.0) mg/dL AST (5-31) U/L ALT (0-31) U/L Alkaline Phosphatase (39-117) U/L Ammonia (13-55) umol/L Total Protein (6.5-8.0) g/dL Albumin (3.5-5.0) g/dL Urine Color Urine Appearance Urine pH (5.0-9.0) Ur Specific Hessel (1.005-1.025) Urine Protein (Neg-Trace) mg/dL Urine Glucose (UA) (Negative) mg/dL Urine Ketones (Negative) mg/dL Urine Blood (Negative) Urine Nitrite (Negative) Ur Leukocyte Esterase (Negative) Urine RBC (0-2) /HPF Urine WBC (0-5) /HPF Ur Squamous Epith Cells (0-2) /HPF Urine Bacteria (None Seen) Hyaline Casts (0-2) /LPF Respiratory Panel Rausch See Note Adenovirus (Rapid PCR) Not Detected (Not Detect.) B.pert (TEM-PCR) Not Detected (Not Detect.) B.parapertussis DNA PCR Not Detected (Not Detect.) C. pneumoniae DNA (PCR) Not Detected (Not Detect.) Coronavirus OC43 (PCR) Not Detected (Not Detect.) Coronavirus HKU1 (PCR) Not Detected (Not Detect.) Coronavirus 229E (PCR) Not Detected (Not Detect.) Coronavirus NL63 (PCR) Not Detected (Not Detect.) Human Metapneumovir PCR Not Detected (Not Detect.) Influenza A (RT-PCR) Not Detected (Not Detect.) Influenza B (RT-PCR) Not Detected (Not Detect.) M. pneumoniae (PCR) Not Detected (Not Detect.) Parainfluenza 1 (PCR) Not Detected (Not Detect.) Parainfluenza 2 (PCR) Not Detected (Not Detect.) Parainfluenza 3 (PCR) Not Detected (Not Detect.) Parainfluenza 4 (PCR) Not Detected (Not Detect.) RSV (PCR) Not Detected (Not Detect.) Entero/Rhino (PCR) Not Detected (Not Detect.) SARS-CoV-2 RNA (RT-PCR) Not Detected (Not Detect.) 09/16/22 Range/Units 12:18 WBC (4.8-10.8) X10*3/uL RBC (4.20-5.50) X10*6/uL Hgb (12.0-16.0) g/dl Hct (37.0-47.0) % MCV (80.0-98.0) fL MCH (27.0-33.0) pg MCHC (31.0-35.0) g/dl RDW (11.0-16.0) % Plt Count (160-400) X10*3/uL MPV (9.4-12.3) fL Immature Gran % (Auto) (0.0-0.4) % Neut % (Auto) (45-73) % Lymph % (Auto) (20-40) % [place] % (Auto) (2-11) % Eos % (Auto) (0-4) % Baso % (Auto) (0-2) % Lymph # (Auto) (1.2-4.9) X10*3/uL [place] # (Auto) (0.1-1.2) X10*3/uL Eos # (Auto) (0.0-0.4) X10*3/uL Baso # (Auto) (0.0-0.2) X10*3/uL Abs Immat Gran (auto) (0.00-0.03) X10*3/uL Absolute Neuts (auto) (2.0-8.3) x10*3/uL Absolute Nucleated RBC (0.0-0.012) X10*3/uL Nucleated RBC % (auto) (0.0-0.2) /100WBC PT (10.0-13.1) SEC INR (0.9-1.1) D-Dimer High Sensitivty NG/ML Sodium (135-145) mmol/L Potassium (3.3-5.1) mmol/L Chloride (96-108) mmol/L Carbon Dioxide (22-29) mmol/L Anion Gap (12-20) BUN (9-16) mg/dL Creatinine (0.5-1.4) mg/dL Estim Creat Clear Calc Estimated GFR Random Glucose (60-115) mg/dL Lactic Acid (0.5-2.0) mmol/L Calcium (8.4-10.2) mg/dL Total Bilirubin (0.0-1.0) mg/dL AST (5-31) U/L ALT (0-31) U/L Alkaline Phosphatase (39-117) U/L Ammonia (13-55) umol/L Total Protein (6.5-8.0) g/dL Albumin (3.5-5.0) g/dL Urine Color Dark Yellow Urine Appearance Turbid Urine pH 5.5 (5.0-9.0) Ur Specific Hessel 1.020 (1.005-1.025) Urine Protein 300 (3+) H (Neg-Trace) mg/dL Urine Glucose (UA) Negative (Negative) mg/dL Urine Ketones Negative (Negative) mg/dL Urine Blood Moderate (2+) H (Negative) Urine Nitrite Positive H (Negative) Ur Leukocyte Esterase Large (3+) H (Negative) Urine RBC 3-5 H (0-2) /HPF Urine WBC >50 H (0-5) /HPF Ur Squamous Epith Cells 3-5 (0-2) /HPF Urine Bacteria 4+ (None Seen) Hyaline Casts 3-5 (0-2) /LPF Respiratory Panel Rausch Adenovirus (Rapid PCR) (Not Detect.) B.pert (TEM-PCR) (Not Detect.) B.parapertussis DNA PCR (Not Detect.) C. pneumoniae DNA (PCR) (Not Detect.) Coronavirus OC43 (PCR) (Not Detect.) Coronavirus HKU1 (PCR) (Not Detect.) Coronavirus 229E (PCR) (Not Detect.) Coronavirus NL63 (PCR) (Not Detect.) Human Metapneumovir PCR (Not Detect.) Influenza A (RT-PCR) (Not Detect.) Influenza B (RT-PCR) (Not Detect.) M. pneumoniae (PCR) (Not Detect.) Parainfluenza 1 (PCR) (Not Detect.) Parainfluenza 2 (PCR) (Not Detect.) Parainfluenza 3 (PCR) (Not Detect.) Parainfluenza 4 (PCR) (Not Detect.) RSV (PCR) (Not Detect.) Entero/Rhino (PCR) (Not Detect.) SARS-CoV-2 RNA (RT-PCR) (Not Detect.) Critical Care Time Critical Care Time Critical Care Time: Yes Total Critical Care Time: 110 Attestation: Critical care time secondary to sepsis with mental status change. It is outside of separately billable procedures Discharge Plan Discharge Patient Disposition: Admitted As Inpatient Prescriptions: No Action acetaminophen 325 mg Tablet 650 mg PO Q4H PRN (Reason: Fever Or Pain) Rx Instructions: PAIN/FEVER polyethylene glycol 3350 [Miralax] 17 gram/dose Powder 17 g PO DAILY escitalopram oxalate 10 mg tablet 1 tab PO DAILY cholecalciferol (vitamin D3) [Vitamin D3] 25 mcg (1,000 unit) Tablet 25 mcg PO DAILY Eliquis 5 mg tablet 1 tab PO BID multivitamin Tablet 1 tab PO DAILY allopurinol 300 mg tablet 1 tab PO DAILY nystatin [Nystop] 100,000 unit/gram powder 1 appl topical DAILY Rx Instructions: APPLY UNDER RIGHT BREAST AND KEEP DRY ondansetron HCl 4 mg Tablet 4 mg PO Q8H PRN (Reason: Nausea And Vomiting) DermaPhor Ointment 1 appl TOPICAL BID Rx Instructions: franklin/buttocks bacitracin 500 unit/gram Ointment 1 appl TOPICAL DAILY@10 Rx Instructions: AFTER CLEANSING RIGHT GREAT TOE NAIL BED metoprolol succinate 50 mg Tablet Extended Release 24 Hr 50 mg PO DAILY Qty: 30 0RF Protocol: Hold for SBP/HR < HOLD for SBP < : 90 HOLD for HR < : 60 lisinopril 5 mg Tablet 5 mg PO DAILY Qty: 30 0RF Protocol: Hold for SBP< HOLD for SBP < : 90 cefuroxime axetil 500 mg tablet 500 mg PO Q12H Qty: 16 0RF insulin glargine [Basaglar KwikPen U-100 Insulin] 100 unit/mL (3 mL) insulin pen 15 unit subcut BEDTIME Qty: 15 0RF furosemide 40 mg tablet 40 mg PO DAILY Qty: 10 0RF
[2022-09-16] MEDS: SODIUM CHLORIDE 2355 ML IV (11:59)
[2022-09-16 12:02] LABS: MANUAL DIFF FLAG NO
[2022-09-16 12:05] LABS: Basophils Absolute Auto 0.1 X10*3/uL (0.0-0.2); Basophils Percent Auto 0.6 % (0-2); Eosinophils Absolute Auto 0.1 X10*3/uL (0.0-0.4); Eosinophils Percent Auto 0.8 % (0-4); Hematocrit 48.5 % (37.0-47.0); Hemoglobin 14.5 g/dl (12.0-16.0); Imm Gran Abs Auto 0.03 X10*3/uL (0.00-0.03); Imm Gran Pct Auto 0.3 % (0.0-0.4); Lymphocytes Absolute Auto 1.3 X10*3/uL (1.2-4.9); Lymphocytes Percent Auto 13.5 % (20-40); Mean Corpuscular HGB Conc 29.9 g/dl (31.0-35.0); Mean Corpuscular Hemoglobin 25.3 pg (27.0-33.0); Mean Corpuscular Volume 84.5 fL (80.0-98.0); Mean Platelet Volume 10.3 fL (9.4-12.3); Monocytes Absolute Auto 0.8 X10*3/uL (0.1-1.2); Monocytes Percent Auto 8.5 % (2-11); Neutrophils Absolute Auto 7.5 x10*3/uL (2.0-8.3); Neutrophils Percent Auto 76.3 % (45-73); Platelet Count 300 X10*3/uL (160-400); Red Blood Count 5.74 X10*6/uL (4.20-5.50); Red Cell Distribution Width 16.6 % (11.0-16.0); White Blood Count 9.8 X10*3/uL (4.8-10.8)
[2022-09-16 12:16] LABS: INTERNATIONAL NORM RATIO 1.7 (0.9-1.1); Prothrombin Time 20.1 SEC (10.0-13.1)
[2022-09-16 12:18] LABS: D Dimer High Sensitivity 275 NG/ML
--- NOTE | 2022-09-16 12:20 | PC.NURSE ---
pt arrived from [facility] with cheif complaint diff swallowing and failure to thrive. pt non-verbal. rectal temp 101.3. septic workup initiated.. pt tachycardic, febrile and tachypnic. wound noted to coccyx, photo sent via [employer] to dr tejeda. 20 g IV placed in IGNACIA forarms. 16F Cueva placed, temp sensing. pt de-sat to 84% and started on 4L NC . improved to 98%. Major donaldson. unable to hang next abx in septic time frame due to long run time of major. septic fluids infusing on pressure bag.
[2022-09-16 12:48] LABS: Alanine Aminotransferase 8 U/L (0-31); Albumin Level 3.3 g/dL (3.5-5.0); Alkaline Phosphatase 86 U/L (39-117); Anion Gap 12 (12-20); Aspartate Amino Transferase 18 U/L (5-31); Bilirubin Total 0.7 mg/dL (0.0-1.0); Blood Urea Nitrogen 15 mg/dL (9-16); Carbon Dioxide 35 mmol/L (22-29); Chloride 110 mmol/L (96-108); Creatinine Clr Calc Pharmacy 87.4; Estimated Glomerular Filt Rate > 60; Glucose Random 215 mg/dL (60-115); Sodium 153 mmol/L (135-145); Total Protein 6.1 g/dL (6.5-8.0)
[2022-09-16 12:59] LABS: Appearance Urine Turbid; Color Urine Dark Yellow; Glucose Urine UA Negative (Negative); Leukocyte Esterase Urine Large (3+) (Negative); Nitrite Urine Positive (Negative); PH 5.5 (5.0-9.0); UMIC TRIGGER UACC YES; Urine Blood Moderate (2+) (Negative); Urine Ketones Negative (Negative); Urine Protein 300 (3+) mg/dL (Neg-Trace)
[2022-09-16 13:17] LABS: Bacteria Urine 4+ (None Seen); UACC Culture Trigger YES; WBC Urine >50 /HPF (0-5)
[2022-09-16] MEDS: iohexoL 350 MG/ML 100 ML INFUS..BTL IV (13:42)
[2022-09-16 13:45] LABS: Ammonia 36 umol/L (13-55)
[2022-09-16 13:57] LABS: Adenovirus PCR Not Detected (Not Detect.); Bordetella parapertussis PCR Not Detected (Not Detect.); Bordetella pertussis PCR Not Detected (Not Detect.); Chlamydia pneumoniae PCR Not Detected (Not Detect.); Coronavirus 229E PCR Not Detected (Not Detect.); Coronavirus HKU1 PCR Not Detected (Not Detect.); Coronavirus NL63 PCR Not Detected (Not Detect.); Coronavirus OC43 PCR Not Detected (Not Detect.); Human metapneumovirus PCR Not Detected (Not Detect.); Influenza A PCR Not Detected (Not Detect.); Influenza B PCR Not Detected (Not Detect.); Mycoplasma pneumoniae PCR Not Detected (Not Detect.); Parainfluenza 1 PCR Not Detected (Not Detect.); Parainfluenza 2 PCR Not Detected (Not Detect.); Parainfluenza 3 PCR Not Detected (Not Detect.); Parainfluenza 4 PCR Not Detected (Not Detect.); RSV PCR Not Detected (Not Detect.); Rhino/Enterovirus PCR Not Detected (Not Detect.); SARS-CoV-2 PCR Not Detected (Not Detect.)
[2022-09-16 14:06] LABS: Lactic Acid 1.6 mmol/L (0.5-2.0)
[2022-09-16] MEDS: methylPREDNISolone Sod Succ 125 MG/2 ML VIAL IVPUSH (14:24)
[2022-09-16] MEDS: levoFLOXacin/D5W 500 MG/100 ML PIGGYBACK 100 MG IV (14:25)
[2022-09-16] MEDS: Acetaminophen Supp 650 MG SUPP.RECT PR (14:25)
[2022-09-16] MEDS: Albuterol/Iprat 2.5/0.5MG 3 ML AMPUL.NEB INHALE (14:36)
--- NOTE | 2022-09-16 16:32 | PM.IMHP ---
History of Present Illness Date of Service: 09/16/22 Attending physician on admission: [facility] Chief Complaint: increased confusion 77-year-old woman presenting from nursing home facility with increased confusion, decreased oral intake and difficulty swallowing. She has a longstanding history of dementia and unable to give any information during the interview. Her was present and stated that the patient is mostly nonverbal and has chronic confusion but more recently. She was noted to have an elevated blood pressure of 200/93, given a dose of lisinopril which did bring it down nicely. CT scan showed probable right-sided aspiration pneumonia no pulmonary embolism. Urinalysis grossly positive for infection history of E coli bacteremia and UTI. Initial sodium 153, she did receive 30 mL/kg IV fluid bolus as she appeared dehydrated. In the ER she was given a dose of Levaquin, Diflucan, vancomycin, Solu-Medrol, clindamycin. To admitted for further management and treatment of sepsis secondary to aspiration pneumonia and UTI. Review of Systems Review of Systems: Yes Unobtainable due to mental status [facility] Medical History Atrial fibrillation Dementia Diabetes GI bleed Gout High cholesterol Hypertension Family History Mother No problems noted. Father No problems noted. Social History Household Members: Other Household Members Other:: nsg home Housing: [facility] Do you presently have visiting nurse or other home services: No Unable to assess alcohol history related to: Unknown Alcohol intake: unknown Patient Tobacco Use Status: Refuse Tobacco use screen Second Hand Smoke Exposure: No Advance Directives: Yes Advance Directives on File: Yes Advance Directives Date on File: 12/13/20 service: No Current occupational status: retired Meds Allergies Allergy/AdvReac Type Severity Reaction Status Date / Time Penicillins Allergy Mild UNKNOWN Verified 05/29/22 00:54 erythromycin base Allergy Unknown UNKNOWN Verified 05/29/22 00:54 [ERYTHROMYCIN BASE] flecainide [FLECAINIDE] Allergy Unknown UNKNOWN Verified 05/29/22 00:54 Active Medications: Current Medications Fluconazole (Diflucan) 200 mg in 100 mls @ 100 mls/hr IV ONCE ONE Stop: 09/16/22 17:59 Pharmacy Consult (Consult Rx Perform Med Rec) 1 each MISCELLANE ONCE PRN PRN Reason: Consult order Home Medications Medication Instructions Recorded Confirmed Last Taken Type acetaminophen 325 mg tablet 650 mg PO Q4H PRN Fever Or Pain 05/29/22 07/06/22 Unknown History allopurinol 300 mg tablet 1 tab PO DAILY 05/29/22 07/06/22 Unknown History apixaban 5 mg tablet (Eliquis) 1 tab PO BID 05/29/22 07/06/22 Unknown History cholecalciferol (vitamin D3) 25 25 mcg PO DAILY 05/29/22 07/06/22 Unknown History mcg (1,000 unit) tablet (Vitamin D3) escitalopram oxalate 10 mg tablet 1 tab PO DAILY 05/29/22 07/06/22 Unknown History multivitamin 1 tab PO DAILY 05/29/22 07/06/22 Unknown History nystatin 100,000 unit/gram topical 1 appl topical DAILY 05/29/22 07/06/22 Unknown History powder (Nystop) ondansetron HCl 4 mg tablet 4 mg PO Q8H PRN Nausea And Vomiting 05/29/22 07/06/22 Unknown History polyethylene glycol 3350 17 17 g PO DAILY 05/29/22 07/06/22 Unknown History gram/dose oral powder (Miralax) bacitracin 500 unit/gram topical 1 appl topical DAILY@10 07/06/22 07/06/22 Unknown History ointment mineral oil-hydrophil petrolat 1 appl topical BID 07/06/22 07/06/22 Unknown History topical ointment (DermaPhor topical ointment) Physical Exam Vital Signs and Narrative: Vital Signs: Last Vital Signs Temp 99.9 F 09/16/22 13:18 Pulse 84 09/16/22 15:16 Resp 12 09/16/22 15:16 BP 200/93 H 09/16/22 15:16 Pulse Ox 100 09/16/22 15:16 O2 Del Method 09/16/22 15:16 O2 Flow Rate 2 09/16/22 15:16 BMI result Body Mass Index 27.1 Appearing in no acute distress head is normocephalic atraumatic eyes pupils are PERRLA sclera is anicteric mouth throat mucous membranes are intact and moist neck is supple no lymphadenopathy, no JVD noted lung sounds are clear to auscultation heart regular rate rhythm, clear S1, S2 positive bowel sounds, abdomen is soft, nontender neuro patient is alert, confused Results Labs CBC and Chem 7: 09/16/22 11:45 09/16/22 11:45 Labs: Laboratory Results - last 24 hr 09/16/22 09/16/22 09/16/22 11:45 11:45 11:45 MCV 84.5 MCH 25.3 L MCHC 29.9 L RDW 16.6 H Plt Count 300 D MPV 10.3 Immature Gran % (Auto) 0.3 Neut % (Auto) 76.3 H Lymph % (Auto) 13.5 L Ritchie % (Auto) 8.5 Eos % (Auto) 0.8 Baso % (Auto) 0.6 Lymph # (Auto) 1.3 Ritchie # (Auto) 0.8 Eos # (Auto) 0.1 Baso # (Auto) 0.1 Abs Immat Gran (auto) 0.03 Absolute Neuts (auto) 7.5 Absolute Nucleated RBC 0.000 Nucleated RBC % (auto) 0.0 PT INR D-Dimer High Sensitivty Anion Gap 12 Estim Creat Clear Calc 87.4 Estimated GFR > 60 Random Glucose 215 H Lactic Acid Calcium 10.0 D Total Bilirubin 0.7 AST 18 ALT 8 Alkaline Phosphatase 86 Ammonia 36 Total Protein 6.1 L Albumin 3.3 L Urine Color Urine Appearance Urine pH Ur Specific [place] Urine Protein Urine Glucose (UA) Urine Ketones Urine Blood Urine Nitrite Ur Leukocyte Esterase Urine RBC Urine WBC Ur Squamous Epith Cells Urine Bacteria Hyaline Casts Respiratory Panel Rausch Adenovirus (Rapid PCR) B.pert (TEM-PCR) B.parapertussis DNA PCR C. pneumoniae DNA (PCR) Coronavirus OC43 (PCR) Coronavirus HKU1 (PCR) Coronavirus 229E (PCR) Coronavirus NL63 (PCR) Human Metapneumovir PCR Influenza A (RT-PCR) Influenza B (RT-PCR) M. pneumoniae (PCR) Parainfluenza 1 (PCR) Parainfluenza 2 (PCR) Parainfluenza 3 (PCR) Parainfluenza 4 (PCR) RSV (PCR) Entero/Rhino (PCR) SARS-CoV-2 RNA (RT-PCR) 09/16/22 09/16/22 09/16/22 11:45 11:45 12:08 MCV MCH MCHC RDW Plt Count MPV Immature Gran % (Auto) Neut % (Auto) Lymph % (Auto) Ritchie % (Auto) Eos % (Auto) Baso % (Auto) Lymph # (Auto) Ritchie # (Auto) Eos # (Auto) Baso # (Auto) Abs Immat Gran (auto) Absolute Neuts (auto) Absolute Nucleated RBC Nucleated RBC % (auto) PT 20.1 H INR 1.7 H D-Dimer High Sensitivty 275 Anion Gap Estim Creat Clear Calc Estimated GFR Random Glucose Lactic Acid 1.6 Calcium Total Bilirubin AST ALT Alkaline Phosphatase Ammonia Total Protein Albumin Urine Color Urine Appearance Urine pH Ur Specific [place] Urine Protein Urine Glucose (UA) Urine Ketones Urine Blood Urine Nitrite Ur Leukocyte Esterase Urine RBC Urine WBC Ur Squamous Epith Cells Urine Bacteria Hyaline Casts Respiratory Panel Rausch See Note Adenovirus (Rapid PCR) Not Detected B.pert (TEM-PCR) Not Detected B.parapertussis DNA PCR Not Detected C. pneumoniae DNA (PCR) Not Detected Coronavirus OC43 (PCR) Not Detected Coronavirus HKU1 (PCR) Not Detected Coronavirus 229E (PCR) Not Detected Coronavirus NL63 (PCR) Not Detected Human Metapneumovir PCR Not Detected Influenza A (RT-PCR) Not Detected Influenza B (RT-PCR) Not Detected M. pneumoniae (PCR) Not Detected Parainfluenza 1 (PCR) Not Detected Parainfluenza 2 (PCR) Not Detected Parainfluenza 3 (PCR) Not Detected Parainfluenza 4 (PCR) Not Detected RSV (PCR) Not Detected Entero/Rhino (PCR) Not Detected SARS-CoV-2 RNA (RT-PCR) Not Detected 09/16/22 12:18 MCV MCH MCHC RDW Plt Count MPV Immature Gran % (Auto) Neut % (Auto) Lymph % (Auto) Ritchie % (Auto) Eos % (Auto) Baso % (Auto) Lymph # (Auto) Ritchie # (Auto) Eos # (Auto) Baso # (Auto) Abs Immat Gran (auto) Absolute Neuts (auto) Absolute Nucleated RBC Nucleated RBC % (auto) PT INR D-Dimer High Sensitivty Anion Gap Estim Creat Clear Calc Estimated GFR Random Glucose Lactic Acid Calcium Total Bilirubin AST ALT Alkaline Phosphatase Ammonia Total Protein Albumin Urine Color Dark Yellow Urine Appearance Turbid Urine pH 5.5 Ur Specific [place] 1.020 Urine Protein 300 (3+) H Urine Glucose (UA) Negative Urine Ketones Negative Urine Blood Moderate (2+) H Urine Nitrite Positive H Ur Leukocyte Esterase Large (3+) H Urine RBC 3-5 H Urine WBC >50 H Ur Squamous Epith Cells 3-5 Urine Bacteria 4+ Hyaline Casts 3-5 Respiratory Panel Rausch Adenovirus (Rapid PCR) B.pert (TEM-PCR) B.parapertussis DNA PCR C. pneumoniae DNA (PCR) Coronavirus OC43 (PCR) Coronavirus HKU1 (PCR) Coronavirus 229E (PCR) Coronavirus NL63 (PCR) Human Metapneumovir PCR Influenza A (RT-PCR) Influenza B (RT-PCR) M. pneumoniae (PCR) Parainfluenza 1 (PCR) Parainfluenza 2 (PCR) Parainfluenza 3 (PCR) Parainfluenza 4 (PCR) RSV (PCR) Entero/Rhino (PCR) SARS-CoV-2 RNA (RT-PCR) Imaging Radiologist's Impressions: Impressions Abdomen/Pelvis CT 09/16/22 13:45 IMPRESSION: No pulmonary embolus seen. Right lower lobe atelectasis/collapse with material in the right bronchus intermedius suspicious for aspiration. Circumferential bladder wall thickening and irregularity of the urinary bladder with a Cueva catheter in place. Cystitis could give this appearance. Recommend correlation with urinalysis. Indeterminate 1.3 cm left adrenal nodule. It is not convincingly changed in size since November 2020. The greater than 1 year of stability suggests a benign etiology. Consider nonemergent adrenal protocol CT follow-up for definitive evaluation. VTE: negative Chest CTA 09/16/22 13:45 IMPRESSION: No pulmonary embolus seen. Right lower lobe atelectasis/collapse with material in the right bronchus intermedius suspicious for aspiration. Circumferential bladder wall thickening and irregularity of the urinary bladder with a Cueva catheter in place. Cystitis could give this appearance. Recommend correlation with urinalysis. Indeterminate 1.3 cm left adrenal nodule. It is not convincingly changed in size since November 2020. The greater than 1 year of stability suggests a benign etiology. Consider nonemergent adrenal protocol CT follow-up for definitive evaluation. VTE: negative Assessment and Plan (1) Aspiration pneumonia: Status: Acute Plan 77-year-old woman admitted with sepsis secondary to aspiration pneumonia and UTI. History of dementia coming from nursing home facility. Sepsis Secondary to aspiration pneumonia and UTI Fever, leukocytosis, normal lactic acid Will treat with Zosyn for now speech therapy evaluation Keep NPO for now, may give medications Follow up final cultures Hypernatremia Likely secondary to dehydration Treated with 30 mL/kg IV fluid bolus in the ER repeat BMP Hypertension with elevated blood pressure Initial blood pressure in the ER 200/93 Received 10 mg of lisinopril with good effect Continue home dose of lisinopril, furosemide and metoprolol Diabetes mellitus Sliding scale, ADA diet Paroxysmal atrial fibrillation Continue beta-silvia and Eliquis DVT prophylaxis with [facility] Attending Dr. Eddy DNR Medication reconciliation pending patient will need 2 inpatient midnights for treatment of sepsis secondary to aspiration pneumonia and UTI requiring IV antibiotics Time Spent With Patient Time: Total time managing care of this patient today ____ minutes. Quality Stroke Does the patient have a stroke diagnosis?: No VTE Prior VTE?: No VTE Risk Level:: Medical - moderate - high VTE Device Contraindication: Treatment Not Indicated VTE Drug Contraindication: N/A - Med Ordered
[2022-09-16 16:52] LABS: Anion Gap 13 (12-20); Blood Urea Nitrogen 13 mg/dL (9-16); Calcium 8.8 mg/dL (8.4-10.2); Carbon Dioxide 30 mmol/L (22-29); Chloride 113 mmol/L (96-108); Creatinine Clr Calc Pharmacy 100.8; Estimated Glomerular Filt Rate > 60; Glucose Random 224 mg/dL (60-115); Potassium 3.7 mmol/L (3.3-5.1); Sodium 152 mmol/L (135-145)
[2022-09-16] MEDS: Fluconazole in NaCl,Iso-Osm 200 MG/100 ML PIGGYBACK 100 MG IV (17:05)
[2022-09-16] MEDS: Dextrose 5 % 1,000 ML 100 ML IVCONT (17:19)
[2022-09-16] MEDS: Clindamycin Phosphate/D5W 300 MG/50 ML PIGGYBACK 100 MG IV (19:49)
[2022-09-16] MEDS: lisinopriL 5 MG TABLET PO (19:50)
[2022-09-16] MEDS: lisinopriL 10 MG TABLET PO (19:50)
[2022-09-16] MEDS: cefTRIAXone sodium 1 GM in 0.9 % Sodium Chloride 50 ML IV (20:29)
[2022-09-16 20:57] LABS: Anion Gap 13 (12-20); Blood Urea Nitrogen 14 mg/dL (9-16); Calcium 8.7 mg/dL (8.4-10.2); Carbon Dioxide 29 mmol/L (22-29); Chloride 112 mmol/L (96-108); Creatinine Clr Calc Pharmacy 102.9; Estimated Glomerular Filt Rate > 60; Glucose Random 298 mg/dL (60-115); Potassium 3.6 mmol/L (3.3-5.1); Sodium 150 mmol/L (135-145)
[2022-09-16] MEDS: Doxycycline Hyclate 100 MG in 0.9 % Sodium Chloride 250 ML 166.67 MG IV (21:00)
[2022-09-17 04:00] VITALS: BP 157/59; PULSE 65; RESP 16; TEMP 36.2; O2SAT 99
[2022-09-17 07:39] VITALS: BP 186/76; PULSE 64; RESP 16; TEMP 36.2; O2SAT 100
[2022-09-17 07:41] LABS: Glucose, Whole Blood 251 mg/dL (60-115)
[2022-09-17 07:51] LABS: Hematocrit 41.7 % (37.0-47.0); Hemoglobin 12.5 g/dl (12.0-16.0); Mean Corpuscular Hemoglobin 25.5 pg (27.0-33.0); Mean Corpuscular Volume 84.9 fL (80.0-98.0); Mean Platelet Volume 10.7 fL (9.4-12.3); Platelet Count 179 X10*3/uL (160-400); Red Blood Count 4.91 X10*6/uL (4.20-5.50); Red Cell Distribution Width 15.9 % (11.0-16.0); White Blood Count 5.6 X10*3/uL (4.8-10.8)
[2022-09-17 08:00] LABS: Anion Gap 9 (12-20); Blood Urea Nitrogen 15 mg/dL (9-16); Calcium 8.8 mg/dL (8.4-10.2); Carbon Dioxide 31 mmol/L (22-29); Chloride 111 mmol/L (96-108); Creatinine Clr Calc Pharmacy 97.1; Estimated Glomerular Filt Rate > 60; Glucose Random 325 mg/dL (60-115); Potassium 3.3 mmol/L (3.3-5.1); Sodium 148 mmol/L (135-145)
[2022-09-17] MEDS: Doxycycline Hyclate 100 MG in 0.9 % Sodium Chloride 250 ML 166.67 MG IV ×2 (08:41→22:33)
[2022-09-17] MEDS: Dextrose 5 % 1,000 ML 100 ML IVCONT ×2 (08:43→18:14)
[2022-09-17] MEDS: 0.9 % Sodium Chloride Flush 3 ML SYRINGE IVFLUSH (08:44)
[2022-09-17] MEDS: Metoprolol Succinate ER 50 MG TAB.ER.24H PO (08:54)
[2022-09-17] MEDS: Apixaban 5 MG TABLET PO ×2 (08:54→21:59)
[2022-09-17] MEDS: Multivitamin TABLET 1 TAB PO (08:54)
[2022-09-17] MEDS: allopurinoL 300 MG TABLET PO (08:55)
[2022-09-17] MEDS: Cholecalciferol (Vitamin D3) 25 MCG TABLET PO (08:55)
[2022-09-17] MEDS: Furosemide 40 MG TABLET PO (08:55)
[2022-09-17] MEDS: lisinopriL 5 MG TABLET PO (08:55)
--- NOTE | 2022-09-17 10:05 | P.PNIM_ITS ---
Subjective Subjective Date of Service: 09/17/22 Review of Systems Follow-up sepsis secondary to aspiration pneumonia Patient nonverbal at baseline Physical Exam Vital Signs: Vital Signs: Last Vital Signs Temp 97.1 F 09/17/22 07:39 Pulse 64 09/17/22 07:39 Resp 16 09/17/22 07:39 BP 186/76 H 09/17/22 07:39 Pulse Ox 100 09/17/22 07:39 O2 Del Method 09/17/22 07:39 O2 Flow Rate 2.0 09/17/22 07:39 BMI result Body Mass Index 27.1 Appearing in no acute distress lung sounds are clear to auscultation heart regular rate rhythm, clear S1, S2 positive bowel sounds, abdomen is soft, nontender neuro patient is alert, nonverbal Objective Data Active Medications Acetaminophen (Acetaminophen 325 Mg Tablet) 650 mg PO Q6H PRN PRN Reason: Pain, Mild (Pain Scale 1-3) Allopurinol (Allopurinol 300 Mg Tablet) 300 mg PO DAILY [facility] Last Admin: 09/17/22 08:55 Dose: 300 mg Documented By: SURESH Apixaban (Apixaban 5 Mg Tablet) 5 mg PO BID [facility] Last Admin: 09/17/22 08:54 Dose: 5 mg Documented By: SURESH Furosemide (Furosemide 40 Mg Tablet) 40 mg PO DAILY [facility]; Protocol Last Admin: 09/17/22 08:55 Dose: 40 mg Documented By: SURESH Doxycycline Hyclate 100 mg/ (Sodium Chloride) 250 mls @ 166.67 mls/hr IV Q12H [facility] Last Admin: 09/17/22 08:41 Dose: 166.67 mls/hr Documented By: SURESH Ceftriaxone Sodium 1 gm/ (Sodium Chloride) 50 mls @ 100 mls/hr IV Q24H [facility] Last Infusion: 09/16/22 21:36 Dose: 0 mls/hr Documented By: CLIVE Dextrose (D5w) 1,000 mls @ 100 mls/hr IVCONT .Q10H [facility] Last Admin: 09/17/22 08:43 Dose: 100 mls/hr Documented By: SURESH Lisinopril (Lisinopril 5 Mg Tablet) 5 mg PO DAILY [facility]; Protocol Last Admin: 09/17/22 08:55 Dose: 5 mg Documented By: SURESH Metoprolol Succinate (Metoprolol Succinate Er 50 Mg Tab.Er.24h) 50 mg PO DAILY [facility]; Protocol Last Admin: 09/17/22 08:54 Dose: 50 mg Documented By: SURESH Multivitamins/Vitamin C (Multivitamin Tablet) 1 tab PO DAILY [facility] Last Admin: 09/17/22 08:54 Dose: 1 tab Documented By: SURESH Ondansetron HCl (Ondansetron Hcl 4 Mg/2 Ml Vial) 4 mg IVPUSH Q8H PRN PRN Reason: Nausea and Vomiting Pharmacy Consult (Consult Rx Perform Med Rec) 1 each MISCELLANE ONCE PRN PRN Reason: Consult order Polyethylene Glycol (Polyethylene Glycol 3350 17 Gm Powd.Pack) 17 gm PO DAILY [facility] Last Admin: 09/17/22 08:55 Dose: Not Given Documented By: SURESH Non-Admin Reason: NPO Sodium Chloride (0.9 % Sodium Chloride Flush 3 Ml Syringe) 3 ml IVFLUSH QSHIFT [facility] Last Admin: 09/17/22 08:44 Dose: 3 ml Documented By: SURESH Vitamin D (Cholecalciferol (Vitamin D3) 25 Mcg Tablet) 25 mcg PO DAILY [facility] Last Admin: 09/17/22 08:55 Dose: 25 mcg Documented By: SURESH Labs CBC & Chem 7: 09/17/22 07:03 09/17/22 07:03 Labs: Laboratory Results - last 24 hr 09/16/22 09/16/22 09/16/22 11:45 11:45 11:45 MCV 84.5 MCH 25.3 L MCHC 29.9 L RDW 16.6 H Plt Count 300 D MPV 10.3 Immature Gran % (Auto) 0.3 Neut % (Auto) 76.3 H Lymph % (Auto) 13.5 L [place] % (Auto) 8.5 Eos % (Auto) 0.8 Baso % (Auto) 0.6 Lymph # (Auto) 1.3 [place] # (Auto) 0.8 Eos # (Auto) 0.1 Baso # (Auto) 0.1 Abs Immat Gran (auto) 0.03 Absolute Neuts (auto) 7.5 Absolute Nucleated RBC 0.000 Nucleated RBC % (auto) 0.0 PT INR D-Dimer High Sensitivty Anion Gap 12 Estim Creat Clear Calc 87.4 Estimated GFR > 60 POC Glucose Random Glucose 215 H Lactic Acid Calcium 10.0 D Total Bilirubin 0.7 AST 18 ALT 8 Alkaline Phosphatase 86 Ammonia 36 Total Protein 6.1 L Albumin 3.3 L Urine Color Urine Appearance Urine pH Ur Specific [place] Urine Protein Urine Glucose (UA) Urine Ketones Urine Blood Urine Nitrite Ur Leukocyte Esterase Urine RBC Urine WBC Ur Squamous Epith Cells Urine Bacteria Hyaline Casts Respiratory Panel Rausch Adenovirus (Rapid PCR) B.pert (TEM-PCR) B.parapertussis DNA PCR C. pneumoniae DNA (PCR) Coronavirus OC43 (PCR) Coronavirus HKU1 (PCR) Coronavirus 229E (PCR) Coronavirus NL63 (PCR) Human Metapneumovir PCR Influenza A (RT-PCR) Influenza B (RT-PCR) M. pneumoniae (PCR) Parainfluenza 1 (PCR) Parainfluenza 2 (PCR) Parainfluenza 3 (PCR) Parainfluenza 4 (PCR) RSV (PCR) Entero/Rhino (PCR) SARS-CoV-2 RNA (RT-PCR) 09/16/22 09/16/22 09/16/22 11:45 11:45 12:08 MCV MCH MCHC RDW Plt Count MPV Immature Gran % (Auto) Neut % (Auto) Lymph % (Auto) [place] % (Auto) Eos % (Auto) Baso % (Auto) Lymph # (Auto) [place] # (Auto) Eos # (Auto) Baso # (Auto) Abs Immat Gran (auto) Absolute Neuts (auto) Absolute Nucleated RBC Nucleated RBC % (auto) PT 20.1 H INR 1.7 H D-Dimer High Sensitivty 275 Anion Gap Estim Creat Clear Calc Estimated GFR POC Glucose Random Glucose Lactic Acid 1.6 Calcium Total Bilirubin AST ALT Alkaline Phosphatase Ammonia Total Protein Albumin Urine Color Urine Appearance Urine pH Ur Specific [place] Urine Protein Urine Glucose (UA) Urine Ketones Urine Blood Urine Nitrite Ur Leukocyte Esterase Urine RBC Urine WBC Ur Squamous Epith Cells Urine Bacteria Hyaline Casts Respiratory Panel Rausch See Note Adenovirus (Rapid PCR) Not Detected B.pert (TEM-PCR) Not Detected B.parapertussis DNA PCR Not Detected C. pneumoniae DNA (PCR) Not Detected Coronavirus OC43 (PCR) Not Detected Coronavirus HKU1 (PCR) Not Detected Coronavirus 229E (PCR) Not Detected Coronavirus NL63 (PCR) Not Detected Human Metapneumovir PCR Not Detected Influenza A (RT-PCR) Not Detected Influenza B (RT-PCR) Not Detected M. pneumoniae (PCR) Not Detected Parainfluenza 1 (PCR) Not Detected Parainfluenza 2 (PCR) Not Detected Parainfluenza 3 (PCR) Not Detected Parainfluenza 4 (PCR) Not Detected RSV (PCR) Not Detected Entero/Rhino (PCR) Not Detected SARS-CoV-2 RNA (RT-PCR) Not Detected 09/16/22 09/16/22 09/16/22 12:18 16:22 20:22 MCV MCH MCHC RDW Plt Count MPV Immature Gran % (Auto) Neut % (Auto) Lymph % (Auto) [place] % (Auto) Eos % (Auto) Baso % (Auto) Lymph # (Auto) [place] # (Auto) Eos # (Auto) Baso # (Auto) Abs Immat Gran (auto) Absolute Neuts (auto) Absolute Nucleated RBC Nucleated RBC % (auto) PT INR D-Dimer High Sensitivty Anion Gap 13 13 Estim Creat Clear Calc 100.8 102.9 Estimated GFR > 60 > 60 POC Glucose Random Glucose 224 H 298 H Lactic Acid Calcium 8.8 D 8.7 Total Bilirubin AST ALT Alkaline Phosphatase Ammonia Total Protein Albumin Urine Color Dark Yellow Urine Appearance Turbid Urine pH 5.5 Ur Specific [place] 1.020 Urine Protein 300 (3+) H Urine Glucose (UA) Negative Urine Ketones Negative Urine Blood Moderate (2+) H Urine Nitrite Positive H Ur Leukocyte Esterase Large (3+) H Urine RBC 3-5 H Urine WBC >50 H Ur Squamous Epith Cells 3-5 Urine Bacteria 4+ Hyaline Casts 3-5 Respiratory Panel Rausch Adenovirus (Rapid PCR) B.pert (TEM-PCR) B.parapertussis DNA PCR C. pneumoniae DNA (PCR) Coronavirus OC43 (PCR) Coronavirus HKU1 (PCR) Coronavirus 229E (PCR) Coronavirus NL63 (PCR) Human Metapneumovir PCR Influenza A (RT-PCR) Influenza B (RT-PCR) M. pneumoniae (PCR) Parainfluenza 1 (PCR) Parainfluenza 2 (PCR) Parainfluenza 3 (PCR) Parainfluenza 4 (PCR) RSV (PCR) Entero/Rhino (PCR) SARS-CoV-2 RNA (RT-PCR) 09/17/22 09/17/22 09/17/22 07:03 07:03 07:25 MCV 84.9 MCH 25.5 L MCHC 30.0 L RDW 15.9 Plt Count 179 D MPV 10.7 Immature Gran % (Auto) Neut % (Auto) Lymph % (Auto) [place] % (Auto) Eos % (Auto) Baso % (Auto) Lymph # (Auto) [place] # (Auto) Eos # (Auto) Baso # (Auto) Abs Immat Gran (auto) Absolute Neuts (auto) Absolute Nucleated RBC 0.000 Nucleated RBC % (auto) 0.0 PT INR D-Dimer High Sensitivty Anion Gap 9 L Estim Creat Clear Calc 97.1 Estimated GFR > 60 POC Glucose 251 H Random Glucose 325 H Lactic Acid Calcium 8.8 Total Bilirubin AST ALT Alkaline Phosphatase Ammonia Total Protein Albumin Urine Color Urine Appearance Urine pH Ur Specific [place] Urine Protein Urine Glucose (UA) Urine Ketones Urine Blood Urine Nitrite Ur Leukocyte Esterase Urine RBC Urine WBC Ur Squamous Epith Cells Urine Bacteria Hyaline Casts Respiratory Panel Rausch Adenovirus (Rapid PCR) B.pert (TEM-PCR) B.parapertussis DNA PCR C. pneumoniae DNA (PCR) Coronavirus OC43 (PCR) Coronavirus HKU1 (PCR) Coronavirus 229E (PCR) Coronavirus NL63 (PCR) Human Metapneumovir PCR Influenza A (RT-PCR) Influenza B (RT-PCR) M. pneumoniae (PCR) Parainfluenza 1 (PCR) Parainfluenza 2 (PCR) Parainfluenza 3 (PCR) Parainfluenza 4 (PCR) RSV (PCR) Entero/Rhino (PCR) SARS-CoV-2 RNA (RT-PCR) Microbiology Microbiology Results: Microbiology 09/16/22 Unknown Urine Culture - Preliminary Urine Catheterized - Cueva Catheter Gram negative jamir Assessment and Plan (1) Aspiration pneumonia: Status: Acute Plan 77-year-old woman admitted with sepsis secondary to aspiration pneumonia and UTI.? History of dementia coming from care home facility. Sepsis? Secondary to aspiration pneumonia and UTI Fever, leukocytosis, normal lactic acid Rocephin and doxycycline speech therapy evaluation pending Keep NPO for now, may give medications Follow up final cultures Gram-negative jamir UTI Continue Rocephin Follow cultures Hypernatremia Trending down with D5W Likely secondary to dehydration repeat BMP Hypertension with elevated blood pressure Initial blood pressure in the ER 200/93 Received 10 mg of lisinopril with good effect Continue home dose of lisinopril, furosemide and metoprolol Diabetes mellitus Sliding scale, ADA diet Paroxysmal atrial fibrillation Continue beta-silvia and Eliquis DVT prophylaxis with Eliquis Attending Dr. Cyr DNR Continue hospitalization for treatment of sepsis secondary to aspiration pneumonia and UTI requiring IV antibiotics Time Spent With Patient Time: Total time managing care of this patient today ____ minutes. Quality Stroke Does the patient have a stroke diagnosis?: No VTE Prior VTE?: No VTE Risk Level:: Medical - moderate - high VTE Device Contraindication: Treatment Not Indicated VTE Drug Contraindication: N/A - Med Ordered
--- NOTE | 2022-09-17 10:13 | MHC.CM.PN ---
IMM EXPLAINED TO SPOUSE/HCP MUNIRA VIA TELEPHONE. REQUESTS WHITE COPY BE CERTIFIED MAIL, YELLOW COPY TO CHART. PT IS A LTC RESIDENT AT [facility]. USES W/C FOR MOBILITY. + HCP ON FILE. COVID VAX X 3. PCP AT [facility] DR. HENAO DP: PT WILL RETURN TO [facility], RETURN REFERRAL SENT. BLS FOR TRANSPORT.
[2022-09-17 11:14] LABS: Glucose, Whole Blood 267 mg/dL (60-115)
--- NOTE | 2022-09-17 11:28 | MHC.SL.SWA ---
Speech Pathologist Impression: Risk of Aspiration Due to: History of Pneumonia Poor PO Intake Reduced Cognition Dysphasia Diet Status: Recommend Puree (NDD1) with [place] Thick Liquids, pills crushed in puree. Liquid Consistency and Strategies for Safe Swallow: Liquid Intake Recommendation: [place] Thick Liquid Intake Strategies: Small Sips No Straws Solid Food Consistency: Dietary Recommendations: Pureed (NDD1) Additional Modifications to Solid Foods: Patient will require 1-1 feed with close supervision during meal. Pt presented with a tendency to hold puree/solid orally before initiating swallow: Assure that patient has swallowed before presenting more food. Alternate liquids and solids. Liquids by controlled cup sip, no straws. Discontinue if patient is chronically pocketing/not initiating swallow, is not engaged in meal, or demonstrates aspiration signs. Oral Medication Intake: Crushed with Puree Please contact the pharmacy regarding appropriate crushable or liquid drug formulations that are available whenever modified delivery is recommended. Compensatory Strategies and Precautions to be Taken for Safe Swallow: Sitting Upright (90 deg) No Straw Liquids from Cup Liquids from Spoon Small Bites and Sips Alternate Liquids/Solids Oral Check Supervision While Eating and Drinking for Safe Swallow: Total Assistance (1:1) Foods to Avoid: Sticky, congealed purees. Swallowing Recommended Treatments: Compens. Strategy Educat. Recommendation for Speech: Inpatient Speech Therapy Comment: Patient presents with moderate oropharyngeal dysphagia, advanced dementia/confusion. Patient tolerated [place] Thick liquids well, had maladaptive behavior of holding puree consistency in mouth before initiating swallow, with a disorganized oral pattern, mild delay of swallow and reduced laryngeal elevation noted. Patient presented with aspiration signs on thin liquids. Recommend START diet of PUREE with [place] THICK liquids, pills crushed in puree. Patient will require one to one feed with close monitor due to level of confusion, history of aspiration, strict aspiration precautions apply. Diet recommendations sent by secure text to [facility] discussed in person with RN. ECCLESIASTICAL WORKER will continue to follow. Frequency/Duration: M-F while inpatient. Date Range for Service Req: Timeline to reassess: Fish Checker Clinican/Clinical Fellow: No Supervisory Statement: I have reviewed and agree with the student/clinical fellow's documentation: N/A Speech Language Pathologist: Yvette Green M.A., CCC-ECCLESIASTICAL WORKER
[2022-09-17 15:35] LABS: Anion Gap 11 (12-20); Blood Urea Nitrogen 14 mg/dL (9-16); Calcium 8.9 mg/dL (8.4-10.2); Carbon Dioxide 29 mmol/L (22-29); Chloride 110 mmol/L (96-108); Creatinine Clr Calc Pharmacy 93.7; Estimated Glomerular Filt Rate > 60; Glucose Random 332 mg/dL (60-115); Potassium 2.9 mmol/L (3.3-5.1); Sodium 147 mmol/L (135-145)
[2022-09-17 16:24] LABS: Glucose, Whole Blood 293 mg/dL (60-115)
[2022-09-17 17:26] VITALS: BP 144/67; PULSE 73; RESP 20; TEMP 36.6; O2SAT 94
[2022-09-17 19:41] VITALS: BP 133/64; PULSE 65; RESP 20; TEMP 36.4; O2SAT 96
[2022-09-17 20:23] LABS: Glucose, Whole Blood 251 mg/dL (60-115)
[2022-09-17] MEDS: cefTRIAXone sodium 1 GM in 0.9 % Sodium Chloride 50 ML IV (21:56)
[2022-09-18 03:34] VITALS: BP 127/66; PULSE 57; RESP 20; TEMP 36.2; O2SAT 97
[2022-09-18] MEDS: Dextrose 5 % 1,000 ML 100 ML IVCONT ×2 (05:05→21:42)
[2022-09-18 06:46] LABS: Anion Gap 12 (12-20); Blood Urea Nitrogen 17 mg/dL (9-16); Carbon Dioxide 27 mmol/L (22-29); Chloride 108 mmol/L (96-108); Creatinine Clr Calc Pharmacy 98.9; Estimated Glomerular Filt Rate > 60; Glucose Random 220 mg/dL (60-115); Sodium 144 mmol/L (135-145)
[2022-09-18 07:57] VITALS: BP 177/80; PULSE 62; RESP 19; TEMP 36.7; O2SAT 99
--- NOTE | 2022-09-18 07:59 | HO.PM.IMPN ---
Subjective Subjective Date of Service: 09/18/22 Review of Systems Follow-up sepsis secondary to aspiration pneumonia Patient nonverbal at baseline Physical Exam Vital Signs: Vital Signs: Last Vital Signs Temp 97.1 F 09/18/22 03:34 Pulse 57 09/18/22 03:34 Resp 20 09/18/22 03:34 BP 127/66 09/18/22 03:34 Pulse Ox 97 09/18/22 03:34 O2 Del Method 09/18/22 03:34 O2 Flow Rate 2.0 09/17/22 07:39 BMI result Body Mass Index 27.1 Appearing in no acute distress lung sounds are clear to auscultation heart regular rate rhythm, clear S1, S2 positive bowel sounds, abdomen is soft, nontender neuro patient is alert, confused Objective Data Active Medications Acetaminophen (Acetaminophen 325 Mg Tablet) 650 mg PO Q6H PRN PRN Reason: Pain, Mild (Pain Scale 1-3) Allopurinol (Allopurinol 300 Mg Tablet) 300 mg PO DAILY [facility] Last Admin: 09/17/22 08:55 Dose: 300 mg Documented By: SURESH Apixaban (Apixaban 5 Mg Tablet) 5 mg PO BID [facility] Last Admin: 09/17/22 21:59 Dose: 5 mg Documented By: HENRY Furosemide (Furosemide 40 Mg Tablet) 40 mg PO DAILY [facility]; Protocol Last Admin: 09/17/22 08:55 Dose: 40 mg Documented By: SURESH Hydralazine HCl (Hydralazine Hcl 20 Mg/Ml Vial) 5 mg IVPUSH Q6H PRN; Protocol PRN Reason: SBP>180 Doxycycline Hyclate 100 mg/ (Sodium Chloride) 250 mls @ 166.67 mls/hr IV Q12H [facility] Last Infusion: 09/18/22 01:26 Dose: 0 mls/hr Documented By: NAVA Ceftriaxone Sodium 1 gm/ (Sodium Chloride) 50 mls @ 100 mls/hr IV Q24H [facility] Last Infusion: 09/17/22 22:36 Dose: 0 mls/hr Documented By: HENRY Dextrose (D5w) 1,000 mls @ 100 mls/hr IVCONT .Q10H [facility] Last Admin: 09/18/22 05:05 Dose: 100 mls/hr Documented By: NAVA Lisinopril (Lisinopril 5 Mg Tablet) 5 mg PO DAILY [facility]; Protocol Last Admin: 09/17/22 08:55 Dose: 5 mg Documented By: SURESH Metoprolol Succinate (Metoprolol Succinate Er 50 Mg Tab.Er.24h) 50 mg PO DAILY [facility]; Protocol Last Admin: 09/17/22 08:54 Dose: 50 mg Documented By: SURESH Multivitamins/Vitamin C (Multivitamin Tablet) 1 tab PO DAILY [facility] Last Admin: 09/17/22 08:54 Dose: 1 tab Documented By: SURESH Ondansetron HCl (Ondansetron Hcl 4 Mg/2 Ml Vial) 4 mg IVPUSH Q8H PRN PRN Reason: Nausea and Vomiting Pharmacy Consult (Consult Rx Perform Med Rec) 1 each MISCELLANE ONCE PRN PRN Reason: Consult order Polyethylene Glycol (Polyethylene Glycol 3350 17 Gm Powd.Pack) 17 gm PO DAILY [facility] Last Admin: 09/17/22 08:55 Dose: Not Given Documented By: SURESH Non-Admin Reason: NPO Sodium Chloride (0.9 % Sodium Chloride Flush 3 Ml Syringe) 3 ml IVFLUSH QSHIFT [facility] Last Admin: 09/18/22 01:27 Dose: Not Given Documented By: NAVA Non-Admin Reason: IV Running Vitamin D (Cholecalciferol (Vitamin D3) 25 Mcg Tablet) 25 mcg PO DAILY [facility] Last Admin: 09/17/22 08:55 Dose: 25 mcg Documented By: SURESH Labs CBC & Chem 7: 09/17/22 07:03 09/18/22 05:26 Labs: Laboratory Results - last 24 hr 09/17/22 09/17/22 09/17/22 07:03 11:02 15:05 Anion Gap 9 L 11 L Estim Creat Clear Calc 97.1 93.7 Estimated GFR > 60 > 60 POC Glucose 267 H Random Glucose 325 H 332 H Calcium 8.8 8.9 09/17/22 09/17/22 09/18/22 15:52 19:46 05:26 Anion Gap 12 Estim Creat Clear Calc 98.9 Estimated GFR > 60 POC Glucose 293 H 251 H Random Glucose 220 H Calcium 9.0 Microbiology Microbiology Results: Microbiology 09/16/22 Unknown Urine Culture - Final Urine Catheterized - Cueva Catheter Escherichia coli 09/16/22 11:54 Blood Culture - Preliminary Blood - Venous No growth after 24 hours. 09/16/22 11:45 Blood Culture - Preliminary Blood - Venous No growth after 24 hours. Assessment and Plan (1) Aspiration pneumonia: Status: Acute Assessment and Plan: 77-year-old woman admitted with sepsis secondary to aspiration pneumonia and UTI.? History of dementia coming from [facility] facility. Hypokalemia Replete follow BMP Sepsis? Secondary to aspiration pneumonia and UTI Sepsis resolved Fever, leukocytosis, normal lactic acid Rocephin and doxycycline Seen and evaluated by Speech therapy rec puree diet blood cx neg Ecoli UTI Continue Rocephin Hypernatremia. Resolved stopped D5W Likely secondary to dehydration Hypertension with elevated blood pressure. Resolved Initial blood pressure in the ER 200/93 Continue lisinopril, furosemide and metoprolol Diabetes mellitus type 2 Sliding scale, ADA diet, puree diet Paroxysmal atrial fibrillation Continue beta-silvia and Eliquis DVT prophylaxis with [place] Attending Dr. Cyr DNR Disposition plan for tx back to SNF when medically stable, possibly in am Continue hospitalization for treatment of sepsis secondary to aspiration pneumonia and UTI requiring IV antibiotics Time Spent With Patient Time: Total time managing care of this patient today ____ minutes. Quality Stroke Does the patient have a stroke diagnosis?: No VTE Prior VTE?: No VTE Risk Level:: Medical - moderate - high VTE Device Contraindication: Treatment Not Indicated VTE Drug Contraindication: N/A - Med Ordered
--- NOTE | 2022-09-18 08:26 | P.CDIC_ITS ---
CDI Concurrent Query Documentation Clarification: PHYSICIAN'S DOCUMENTATION REQUEST Date of Query: 09/18/22 0826 Patient Name: Lesly áMrquez Admit Date: 09/16/22 Dear Doctor, A review of the medical record indicates additional documentation may be needed. Please review below and update the documentation accordingly. Clinical Indicators: Is there a diagnosis that correlates to these lab findings: Risk Factors/Clinical Indicators/Treatments LAB FINDINGS: potassium 09/17 - 2.9 L 3.0 L Please clarify based on the above if: Labs: Hypokalemia Other etiology of labs Unable to determine Use of terms such as suspected, likely, concern for, or probable (associated with a specific diagnosis that is being evaluated, monitored, or treated as if it exists) are acceptable and can be coded in the inpatient setting, when doc umented at the time of discharge. Thank you, Daniella Mcclure [facility], CDIS Extension: [phone] Please use your independent medical judgment in providing your response. THIS QUERY IS PART OF THE PERMANENT MEDICAL RECORD Other Diagnosis: See note
--- NOTE | 2022-09-18 08:34 | P.CDIC_ITS ---
CDI Concurrent Query Documentation Clarification: PHYSICIAN'S DOCUMENTATION REQUEST Date of Query: 09/18/22 0835 Patient Name: Lesly Márquez Admit Date: 09/16/22 Dear Doctor, A review of the medical record indicates additional documentation may be needed. Please review below and update the documentation accordingly. Clinical Indicators: Risk Factors/Clinical Indicators/Treatments POC glucose 09/17 - 251 H 293 H Diabetes mellitus, sliding scale, ADA diet. Please clarify the following regarding Diabetes Mellitus (DM): Type/Etiology: * Type I DM * Type II DM * Other type of DM (please specify) * Unable to determine Complications of DM: * Hyperglycemia * Hypoglycemia * Other complication ? please specify * Unable to determine Use of terms such as suspected, likely, concern for, or probable (associated with a specific diagnosis that is being evaluated, monitored, or treated as if it exists) are acceptable and can be coded in the inpatient setting, when documented at the time of discharge. Thank you, Daniella Mcclure [facility], CDIS Extension: [phone] Please use your independent medical judgment in providing your response. THIS QUERY IS PART OF THE PERMANENT MEDICAL RECORD Other Diagnosis: see note
--- NOTE | 2022-09-18 08:34 | MHC.CDI.CONC ---
CDI Concurrent Query Documentation Clarification: PHYSICIAN'S DOCUMENTATION REQUEST Date of Query: 09/18/22 0835 Patient Name: Lesly Márquez Admit Date: 09/16/22 Dear Doctor, A review of the medical record indicates additional documentation may be needed. Please review below and update the documentation accordingly. Clinical Indicators: Risk Factors/Clinical Indicators/Treatments POC glucose 09/17 - 251 H 293 H Diabetes mellitus, sliding scale, ADA diet. Please clarify the following regarding Diabetes Mellitus (DM): Type/Etiology: Type I DM Type II DM Other type of DM (please specify) Unable to determine Complications of DM: Hyperglycemia Hypoglycemia Other complication ? please specify Unable to determine Use of terms such as suspected, likely, concern for, or probable (associated with a specific diagnosis that is being evaluated, monitored, or treated as if it exists) are acceptable and can be coded in the inpatient setting, when documented at the time of discharge. Thank you, Daniella Mcclure [facility], CDIS Extension: [phone] Please use your independent medical judgment in providing your response. THIS QUERY IS PART OF THE PERMANENT MEDICAL RECORD Other Diagnosis: see note
[2022-09-18] MEDS: lisinopriL 5 MG TABLET PO (09:19)
[2022-09-18] MEDS: Metoprolol Succinate ER 50 MG TAB.ER.24H PO (09:19)
[2022-09-18] MEDS: Furosemide 40 MG TABLET PO (09:19)
[2022-09-18] MEDS: Apixaban 5 MG TABLET PO ×2 (09:19→21:40)
[2022-09-18] MEDS: Potassium Chloride Packet 20 MEQ PACKET 40 MEQ PO (09:19)
[2022-09-18] MEDS: Cholecalciferol (Vitamin D3) 25 MCG TABLET PO (09:19)
[2022-09-18] MEDS: Multivitamin TABLET 1 TAB PO (09:19)
[2022-09-18] MEDS: allopurinoL 300 MG TABLET PO (09:19)
[2022-09-18] MEDS: polyethylene glycoL 3350 17 GM POWD.PACK PO (09:20)
[2022-09-18 09:25] LABS: Glucose, Whole Blood 171 mg/dL (60-115)
[2022-09-18] MEDS: Doxycycline Hyclate 100 MG in 0.9 % Sodium Chloride 250 ML 166.67 MG IV ×2 (10:16→21:38)
[2022-09-18] MEDS: 0.9 % Sodium Chloride Flush 3 ML SYRINGE IVFLUSH (10:17)
[2022-09-18 11:10] LABS: Glucose, Whole Blood 161 mg/dL (60-115)
[2022-09-18] MEDS: Insulin Lispro 100 UNIT/ML 3 ML VIAL SUBCUT ×3 (12:25→21:40)
--- NOTE | 2022-09-18 15:08 | MHC.CM.PN ---
EMR REVIEWED AND PER MD ROUNDS, PT NOT MEDICALLY CLEARED FOR DC (IV ABT FOR ASPIRATION PNA, SEPSIS) CM WILL CONTINUE TO FOLLOW FOR RETURN TO [facility]
[2022-09-18 15:37] VITALS: BP 154/70; PULSE 79; RESP 19; TEMP 36.6; O2SAT 98
[2022-09-18 16:18] LABS: Glucose, Whole Blood 168 mg/dL (60-115)
[2022-09-18 20:00] VITALS: BP 132/77; PULSE 51; RESP 18; TEMP 36.7; O2SAT 97
[2022-09-18 20:01] LABS: Glucose, Whole Blood 190 mg/dL (60-115)
[2022-09-18 20:50] LABS: Glucose, Whole Blood 217 mg/dL (60-115)
[2022-09-18] MEDS: cefTRIAXone sodium 1 GM in 0.9 % Sodium Chloride 50 ML IV (23:13)
[2022-09-19 03:17] VITALS: BP 120/93; PULSE 57; RESP 18; TEMP 36.2; O2SAT 99
[2022-09-19] MEDS: Doxycycline Hyclate 100 MG in 0.9 % Sodium Chloride 250 ML 166.67 MG IV (07:38)
[2022-09-19 07:39] LABS: Glucose, Whole Blood 170 mg/dL (60-115)
[2022-09-19 07:47] LABS: Anion Gap 10 (12-20); Blood Urea Nitrogen 12 mg/dL (9-16); Calcium 8.7 mg/dL (8.4-10.2); Carbon Dioxide 28 mmol/L (22-29); Chloride 106 mmol/L (96-108); Creatinine Clr Calc Pharmacy 104.9; Estimated Glomerular Filt Rate > 60; Glucose Random 188 mg/dL (60-115); Potassium 3.6 mmol/L (3.3-5.1); Sodium 140 mmol/L (135-145)
[2022-09-19 07:49] VITALS: BP 143/66; PULSE 68; RESP 18; TEMP 36.3; O2SAT 99
[2022-09-19] MEDS: Insulin Lispro 100 UNIT/ML 3 ML VIAL SUBCUT ×2 (08:07→11:31)
[2022-09-19] MEDS: Potassium Chloride Packet 20 MEQ PACKET 40 MEQ PO (10:42)
[2022-09-19] MEDS: Furosemide 40 MG TABLET PO (10:42)
[2022-09-19] MEDS: allopurinoL 300 MG TABLET PO (10:43)
[2022-09-19] MEDS: Multivitamin TABLET 1 TAB PO (10:44)
[2022-09-19] MEDS: Cholecalciferol (Vitamin D3) 25 MCG TABLET PO (10:46)
[2022-09-19] MEDS: Apixaban 5 MG TABLET PO (10:47)
--- NOTE | 2022-09-19 10:48 | PM.DS ---
DS: Providers Provider Date of Service: 09/19/22 Date of admission: 09/16/22 16:45 Date of discharge: 09/19/22 Primary care physician: FILOMENA HENAO Attending physician on discharge: Bryon Cyr Discharging clinician: Hina Guerrier DS: Diagnosis Discharge Diagnosis (1) Aspiration pneumonia: Status: Acute DS: Summary Hospital Course Hospital Course: From H&P on day of admission ?77-year-old woman [facility] with increased confusion, decreased oral intake and difficulty swallowing.? She has a longstanding history of dementia and unable to give any information during the interview.? Her was present and stated that the patient is mostly nonverbal and has chronic confusion but more recently. She was noted to have an elevated blood pressure of 200/93, given a dose of lisinopril which did bring it down nicely.? CT scan showed probable right-sided aspiration pneumonia no pulmonary embolism.? Urinalysis grossly positive for infection history of E coli bacteremia and UTI.? Initial sodium 153, she did receive 30 mL/kg IV fluid bolus as she appeared dehydrated.? In the ER she was given a dose of Levaquin, Diflucan, vancomycin, Solu-Medrol, clindamycin.? To admitted for further management and treatment of sepsis secondary to aspiration pneumonia and UTI. Sepsis? Secondary to aspiration pneumonia and UTI. Sepsis resolved. She has been afebrile, With no leukocytosis. Last fever documented September 16.She was treated with Rocephin and doxycycline and Will be discharged home to complete course of antibiotics. Due to concern over aspiration see was seen by speech therapy who recommended pureed diet. she is currently saturating 99% on room air. In blood cultures have remained negative to date. blood cx neg Ecoli UTI Urine culture growing E coli sensitive to ceftriaxone. Will transition to cefuroxime to complete course of antibiotics. Hypokalemia. Improved with replacement. Recommend to check potassium levels early next week in periodically thereafter. Hypernatremia. Resolved with D5W Hypertension with elevated blood pressure. Resolved Initial blood pressure in the ER 200/93. Lisinopril 5 mg daily was started, dose of metoprolol was decreased to once daily. bp has been stable. Stage II coccyx pressure ulcer. Present on admission. Snell catheter was placed in the emergency department to protect skin integrity. Snell catheter was removed on the day of discharge, patient requires voiding trial. Time Spent with Patient Time attestation: Total time managing care of this patient today ____ minutes. Discharge coordination time: Greater than 30 minutes Quality: Safe Use of Opioids Does Pt have an Active Cancer Diagnosis on the Problem List?: No Quality: Stroke Does the patient have a stroke diagnosis?: No Physical Exam Vital Signs: Vital Signs: Last Vital Signs Temp 97.4 F 09/19/22 07:49 Pulse 68 09/19/22 07:49 Resp 18 09/19/22 07:49 BP 143/66 H 09/19/22 07:49 Pulse Ox 99 09/19/22 07:49 O2 Del Method 09/19/22 07:49 O2 Flow Rate 2 09/19/22 03:17 BMI result Body Mass Index 27.1 Const: Other: limited verbal - reported baseline General: alert and awake Nutritional Appearance: average body habitus Resp: Effort & Inspection: normal respiratory effort and no use of accessory muscles Cardio: Rate: regular rate Heart sounds: S1 normal heart sound present and S2 normal heart sound present GI: Inspection: No distended Palpation (GI): Soft to palpation Skin: Other: Neuro: Other: unable to asses. minimal verbal DS: Data Data Completed and Pending Labs on day of discharge: Laboratory Results - last 24 hr 09/18/22 09/18/22 09/18/22 11:02 15:58 19:37 Sodium Potassium Chloride Carbon Dioxide Anion Gap BUN Creatinine Estim Creat Clear Calc Estimated GFR POC Glucose 161 H 168 H 190 H Random Glucose Calcium 09/18/22 09/19/22 09/19/22 20:35 06:47 07:33 Sodium 140 Potassium 3.6 Chloride 106 Carbon Dioxide 28 Anion Gap 10 L BUN 12 Creatinine 0.50 Estim Creat Clear Calc 104.9 Estimated GFR > 60 POC Glucose 217 H 170 H Random Glucose 188 H Calcium 8.7 Preliminary micro results at discharge 09/16/22 11:54 Blood Culture - Preliminary Blood - Venous No growth after 48 hours. 09/16/22 11:45 Blood Culture - Preliminary Blood - Venous No growth after 48 hours. Discharge Plan Discharge Patient Disposition: [facility] Discharge Diagnosis: Pneumonia UTI Referrals: Day Y[facility] Young [Outside] - 1 Day FILOMENA HENAO [Primary Care Provider] - 1 Week Discharge Medications: New lisinopril 5 mg Tablet 5 mg PO DAILY 30 Days Qty: 30 0RF Protocol: Hold for SBP< HOLD for SBP < : 90 metoprolol succinate 50 mg Tablet Extended Release 24 Hr 50 mg PO DAILY 30 Days Qty: 30 0RF Protocol: Hold for SBP/HR < HOLD for SBP < : 90 HOLD for HR < : 60 doxycycline hyclate 100 mg tablet 100 mg PO BID 4 Days Qty: 8 0RF cefuroxime axetil 500 mg tablet 500 mg PO BID 4 Days Qty: 8 0RF Continued acetaminophen 325 mg Tablet 650 mg PO Q4H PRN (Reason: Fever Or Pain) Rx Instructions: PAIN/FEVER polyethylene glycol 3350 [Miralax] 17 gram/dose Powder 17 g PO DAILY cholecalciferol (vitamin D3) [Vitamin D3] 25 mcg (1,000 unit) Tablet 25 mcg PO DAILY Eliquis 5 mg tablet 1 tab PO BID multivitamin Tablet 1 tab PO DAILY allopurinol 300 mg tablet 1 tab PO DAILY nystatin [Nystop] 100,000 unit/gram powder 1 appl topical DAILY Rx Instructions: APPLY UNDER RIGHT BREAST AND KEEP DRY ondansetron HCl 4 mg Tablet 4 mg PO Q8H PRN (Reason: Nausea And Vomiting) furosemide 40 mg tablet 40 mg PO DAILY Qty: 10 0RF Discontinued insulin glargine [Basaglar KwikPen U-100 Insulin] 100 unit/mL (3 mL) insulin pen 15 unit subcut BEDTIME Qty: 15 0RF metoprolol succinate 50 mg tablet extended release 24 hr 50 mg PO BID Protocol: Hold for SBP/HR < HOLD for SBP < : 90 HOLD for HR < : 60 Discharge Orders: Discharge Order (Routine); Ordered 09/19/22 Ordered By: Hina Guerrier Activity on Discharge: As tolerated Stand Alone Forms: Patient Portal Discharge page Care Plan Goals: see below Health Concerns: sepsis secondary to aspiration pneumonia and uti hypokalemia - resolved hypernatremia - resolved dysphagia uncontrolled hypertension Plan of Treatment: continue course of antibiotics dysphagia - seen by speech rec jason (NDD1) diet with nectar thick liquids, pills crushed in puree start taking lisinopril for blood pressure dose of metoprolol was decreased to once daily dosing monitoring potassium levels early next week and then periodically after that has not received glargine at night, covered with sliding scale only. can resume slowly if blood sugars are elevated stage 2 coccyx pressure wound - continue foam dressing,frequent repositioning snell removed, will need voiding trial - due to void [id number] 1.3 cm left adrenal nodule, no change in size november 2020, likely benign. outpatient follow up recommended Assessment: see discharge summary Discharge Date/Time: 09/19/22 14:33
[2022-09-19] MEDS: Metoprolol Succinate ER 50 MG TAB.ER.24H PO (10:50)
[2022-09-19] MEDS: lisinopriL 5 MG TABLET PO (10:51)
[2022-09-19] MEDS: polyethylene glycoL 3350 17 GM POWD.PACK PO (10:51)
[2022-09-19 11:23] LABS: Glucose, Whole Blood 169 mg/dL (60-115)
--- NOTE | 2022-09-19 12:16 | MHC.CM.PN ---
DP: PT MEDICALLY CLEARED FOR DC BACK TO THE [facility] FOR LTC. RN [facility] NOTIFIED. TRANSPORT BOOKED FOR 2 PM VIA DOC
[2022-09-19 13:02] LABS: COVID-19 Test Negative (Negative); IDNOW Serial# BCCEAD1C
--- NOTE | 2022-09-19 13:44 | PC.NURSE ---
snell removed at 1200. DTV at 1800. Foam dressing tyo coccyx changed. Pt alert but doies not answert questions appropriately
== END 2022-09-19 14:33 | DRG 871 ==
LOC: HO.ED 15:29 → HO.EDOVER 16:53 → HO.S3 17:26
PROVIDERS: Admitting Provider Nurse Practitioner Acute Care; Emergency Provider Emergency Medicine; PCP Emergency Medicine; Visit Provider Physician Assistant Medical
DX: A41.9 Sepsis, unspecified organism (principal); J69.0 Pneumonitis due to inhalation of food and vomit; N39.0 Urinary tract infection, site not specified; E87.0 Hyperosmolality and hypernatremia; E87.6 Hypokalemia; Z66 Do not resuscitate; I48.0 Paroxysmal atrial fibrillation; E86.0 Dehydration; B96.20 Unspecified Escherichia coli [E. coli] as the cause of diseases classified elsewhere; L89.152 Pressure ulcer of sacral region, stage 2; E78.00 Pure hypercholesterolemia, unspecified; M10.9 Gout, unspecified; Z20.822 Contact with and (suspected) exposure to COVID-19; Z88.0 Allergy status to penicillin; Z88.8 Allergy status to other drugs, medicaments and biological substances; Z79.01 Long term (current) use of anticoagulants; Z79.899 Other long term (current) drug therapy
CPT/HCPCS: 36415; 71275; 74177; 80048; 80053; 81001; 82140; 82947; 83605; 85025; 85027; 85379; 85610; 87040; 87086; 87088; 87186; 87633; 87635; 92610; 93005; 94640; 99284; C1758; J0696; J1450; J1956; J2930; J3370; Q9967